=== PATIENT | female | born 1985 | race Caucasian/White ===

== ENCOUNTER 2020-07-28 11:18 | Outpatient (REF) | payer OTHER, SELFPAY | END 2020-07-28 11:19 | disposition home or self-care (01) | LOC: HO.HVNA 11:18 | PROVIDERS: PCP Family Medicine; Visit Provider Internal Medicine | DX: Z20.828 Contact with and (suspected) exposure to other viral communicable diseases (principal) | CPT/HCPCS: 87635 ==

== ENCOUNTER → 2021-11-26 14:49 | Outpatient (BNVA) | payer OTHER, SELFPAY | PROVIDERS: PCP Internal Medicine; Referring Provider Internal Medicine; Visit Provider Internal Medicine Cardiovascular Disease | DX: I49.3 Ventricular premature depolarization (principal); I47.1 Supraventricular tachycardia | CPT/HCPCS: 93005 ==

== ENCOUNTER 2024-03-22 11:46 | Outpatient (AMB) | payer OTHER, SELFPAY ==
--- NOTE | 2024-03-22 12:23 | AM.OFFWIN_ITS ---
Intake Vital Signs 03/22/24 12:27 Height 5 ft 5 in Weight 149 lb BMI 24.8 BP 132/84 Blood Pressure Location Lt brachial Position Sitting Pulse 68 Pulse Source Pulse Oximeter Temp 98.2 F Temp Source Oral Pulse Oximetry (%) 98 Oxygen Delivery Method Room Air Intake Visit Reasons: EP lump behind RT knee/redness Intake Note: pt here today c/o lump behind rt knee, redness/swelling. Started Friday 6 PM Patient Tobacco Use Status: Never used Tobacco Allergies bupropion [From WELLBUTRIN] Allergy (Unknown, Unverified 03/22/24 12:31) RASH Do you need a note to return to daycare/school/sports/work: No HPI HPI Comments History of Present Illness Details Patient is a 39-year-old female complaining of a lump behind her right knee with redness for 3 days. She states that it is not painful but it is getting larger and she feels like it is getting worse. She does not have a personal history of DVT or PE but she states her dad does have a history of blood clots in her mother is positive for factor 5 Leiden. She denies any discoloration to her right upper thigh. [facility] Medical History PVC (premature ventricular contraction) SVT (supraventricular tachycardia) Social History Patient Tobacco Use Status: Never used Tobacco Review of Systems Const All systems reviewed & are unremarkable except as noted in HPI and below Physical Exam Vital Signs: Last Vital Signs Temp 98.2 F 03/22/24 12:27 Pulse 68 03/22/24 12:27 BP 132/84 03/22/24 12:27 Pulse Ox 98 03/22/24 12:27 Oxygen Delivery Method Room Air 03/22/24 12:27 BMI result Body Mass Index 24.8 Const General: cooperative, healthy appearing, comfortable, no acute distress and well developed Orientation/consciousness: patient oriented x3 Limitations: no limitations HEENT Head: Yes normal to inspection Eyes General: appearance normal, both eyes and all related structures Neck Neck: Yes normal visual inspection and Yes full ROM Resp Effort & Inspection: normal respiratory effort and able to speak in complete sentences Skin General skin exam: no rashes or lesions noted Neuro General: patient oriented x3 Extrem Right lower extremity: hip/thigh (No discoloration) and knee (Posterior 2cm round palpable lump, no erythema, ecchymosis or discoloration) Results Reviewed Results Reviewed: US/US venous duplex LE RT IMPRESSION: 1. No DVT demonstrated in the right lower extremity. 2. 4.9 cm Gamez's cyst in the right popliteal fossa. Assessment & Plan Assessment & Plan (1) Localized swelling, mass and lump, right lower limb: Code(s): R22.41 - Localized swelling, mass and lump, right lower limb Plan: With strong family history, concern for clot, ultrasound performed emergently, found to be Bakers Cyst. Advised RICE and follow up with PCP if no resolution in symptoms in the coming weeks. (2) Localized swelling, mass and lump, right lower limb: Code(s): R22.41 - Localized swelling, mass and lump, right lower limb Plan: See above Plan See above Orders: Orders US venous duplex LE RT Today R22.41 - Localized swelling, mass and lump, right lower limb Coding Level of Care Code New Pt Level 4 (17533) Diagnoses Localized swelling, mass and lump, right lower limb R22.41
[2024-03-22 12:27] VITALS: BP 132/84; PULSE 68; TEMP 36.8; O2SAT 98; BMI 24.8
== END 2024-03-22 14:03 | disposition home or self-care (01) ==
PROVIDERS: PCP Registered Nurse; Visit Provider Physician Assistant
DX: R22.41 Localized swelling, mass and lump, right lower limb (principal)
CPT/HCPCS: 99203

== ENCOUNTER 2024-03-22 13:26 | Outpatient (REF) | payer OTHER, SELFPAY ==
--- NOTE | ~2024-03-22 | US_ITS ---
EXAMINATION: US VENOUS ULTRASOUND WITH DOPPLER LOWER EXTREMITY, RIGHT CLINICAL INFORMATION: Localized swelling, mass and lump, right lower limb COMPARISON: None available. TECHNIQUE: Ultrasound of the deep veins is performed from the hip to the calf with compression sonography and color and pulse Doppler assessment. Spectral analysis with color-flow imaging is performed. FINDINGS: There is normal venous compression and respiratory variation and augmented flow variation. Profunda femoral vein, popliteal vein, and the posterior tibial and peroneal veins show no evidence of deep venous thrombosis. The contralateral common femoral vein demonstrates normal vascular flow and respiratory variation. 4.9 x 1.4 x 3.7 cm Gamez's cyst seen in the right popliteal fossa. US/US venous duplex LE RT IMPRESSION: 1. No DVT demonstrated in the right lower extremity. 2. 4.9 cm Gamez's cyst in the right popliteal fossa.
== END 2024-03-22 13:27 | disposition home or self-care (01) ==
LOC: HO.HMGCX 13:26
PROVIDERS: PCP Registered Nurse; Visit Provider Physician Assistant
DX: R22.41 Localized swelling, mass and lump, right lower limb (principal); M79.604 Pain in right leg
CPT/HCPCS: 93971

== ENCOUNTER 2024-12-10 11:04 | Outpatient (AMB) | payer OTHER, SELFPAY ==
--- NOTE | 2024-12-10 11:06 | MHC.PC.OV ---
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: No Allergies bupropion [From WELLBUTRIN] Allergy (Unknown, Unverified 12/10/24 11:19) RASH Medication List - Last Reconciled 12/10/24 by Janelle Schaeffer, WARP DYEING TENDER-BC biotin mcg PO cetirizine (Wal-Zyr (cetirizine)) 10 mg PO DAILY PRN hydroxyzine pamoate mg PO PRN methylphenidate HCl ER 30 mg PO QAM sertraline 175 mg PO DAILY Tobacco use date assessed: 12/10/24 Dental Screening Dental Screen Date: 12/10/24 Did you have a dental visit in the last 12 months?: Yes Did you have a dental problem in the last 6 months where you did not have access to dental care?: No Was dental information given to patient?: Patient has dentist HPI HPI Comments History of Present Illness Details 39 y/o F with PVC, SVT, bakers cyst R, hyperthyroidism, IBS, ADD, MDD, GAGE, seasonal allergies Social; 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 , 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, 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 Family hx: mom with thyroid dz s/p thyroidectomy Surgery: lumpectomy L breast benign 2016, 3 surgery R knee Health Maintenance Tdap 2021 Flu UTD Mammo 07/2024 @ [facility] rec'd WNL Pap 07/2024 [facility] report requested Specialists Cards last visit 2021 recommend visit q2 years; now active w/ [facility] Cards Dr Mena every year BUSINESS DEVELOPMENT ASSOCIATE Optho 2023 last exam - needs reading glasses 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 - Chronic headaches have persisted for over three months, with attempts at various remedies providing little relief, NSAID + nonpharm interventions. Denies red flags assoc. - SVT episodes appear linked to low potassium, managed with dietary changes and an annual cardiology review. Last episode 09/2024. ED note reviewed. Last Consult note reviewed. PRN metoprolol. - She has a longstanding ADHD diagnosis, previously managed effectively with Ritalin 10mg BID, with current challenges in medication adjustment. Currently on methylphendiate ER 30mg. Active w/ counselor, wonders about PCP taking over Rx. - Anxiety is managed with sertraline; + SAD, was on Wellbutrin but ? if this caused a rash; she does not think this was a drug rash, rather stress related, She is undergoing allergy testing for this. i - The thyroid condition was hyperthyroidism, considering family history, with forest examiner's past guidance, current lab trends are monitored. TSh 09/2024 > 3 Review of Systems - Neurological: Denies stroke-like symptoms - Respiratory: Denies sleep apnea concerns - Allergic/Immunologic: Reports seasonal allergies - Psychological: Reports anxiety, denies changes in stress levels Physical Exam General: Well developed, well nourished, in no acute distress. Appears stated age. Head: Normocephalic, atraumatic. Noted presence of knots at the base of the skull. Eyes: Pupils are equal, round and reactive to light and accommodation. Conjunctivae are clear. Vision grossly normal. Recent eye exam indicated no need for glasses, only reading glasses with +0.3 magnification. Ears: TMs clear AU, EACS WNL. No concerns with hearing. Nose: Patent, without discharge. Neck: Supple, no adenopathy or thyromegaly. Noted presence of thyroid nodules; ultrasound recommended. Breast: Edu on SBE. History of lumpectomy in left breast, benign. Lungs: Clear to auscultation bilaterally. No rales, rhonchi or wheeze noted. Good air flow in all carlos. Heart: Regular rate and rhythm. No murmurs, click, rubs or gallops are noted. History of PVCs and SVT. Abdomen: Bowel sounds present in all quadrants. The abdomen is soft, nontender, with no masses or organomegaly noted. No hernias are noted. : Deferred. Reviewed EDMUND & recommendations for routine BUSINESS DEVELOPMENT ASSOCIATE. Pulses: Peripheral pulses are equal and palpable bilaterally. Extremities: No clubbing, cyanosis nor edema is noted. Neurologic: Gait and station normal. Cranial Nerves 2-12 intact. Motor strength grossly symmetrical and intact. No sensory loss. Balance normal. Skin: No rashes, ulcers, or lesions noted. Turgor is good. Skin color is good. Hair and nails are without abnormalities. Psych: Normal eye contact, affect and mood appropriate, and normal interactions. Patient is alert and appropriate to context. Currently seeing a therapist and psychiatrist for anxiety and ADD management. Discussion Notes During the visit, I discussed with the patient her chronic headaches, noted to be potentially musculoskeletal-based originating from neck tension. A neurology referral for headache evaluation was agreed upon. Regarding SVT, I acknowledged the patient's history with potassium-level management and suggested maintaining current lifestyle adjustments, while planning further care transition to a new cardiology practice. For ADHD management, we discussed collaboration on medication management following the sharing of the current psychiatrist's notes. Thyroid nodules were identified on examination; further thyroid ultrasound and antibody testing were recommended to monitor for potential thyroid disorder progression. Additional labs to assess overall health parameters were ordered. Assessment and Plan 1. Chronic Headaches: Referral to neurology for suspected tension headaches related to neck issues. Consider magnesium & b2 supplementation. 2. Supraventricular Tachycardia (SVT): Potassium maintenance via diet effectively preventing episodes. Follow up with new cardiology care arrangement. 3. ADHD: Medication management to be aligned following psychiatrical notes. Pursue satisfactory dose and type. 4. Thyroid Nodules: Recommend thyroid ultrasound to assess nodules given family history, hyperthyroid episode. 5. Generalized Anxiety Disorder: Manage with sertraline, consider seasonal affective disorder testing. Patient Instructions - Please maintain potassium intake through diet and hydration during exercise. - Consider magnesium and B vitamins for headache management; discuss with neurologist. - Obtain psychiatrist notes for efficient ADHD medication regulation. - Expect a call to schedule a thyroid ultrasound. - Utilize the patient portal for convenient communication and accessing lab results. - RTO to review labs, US results and work on optimizing psych meds. Consent Consent was obtained from the patient verbally for the thyroid ultrasound and antibody testing after detailing the benefits of further evaluation due to palpable nodules and family history. She understands the procedure's non-invasiveness and potential implications of findings. All questions were addressed, and she expressed understanding and agreement. Patient was informed and verbally consented to the use of an ambient scribe for clinic note documentation during this visit. An additional 30 minutes was spent addressing the problem(s) noted at todays visit. This includes time spent before the visit reviewing the chart, time spent during the visit, and time spent after the visit on documentation reviewing laboratory results, diagnostic imaging, medications, performing a medically necessary evaluation, counseling on diagnoses, care coordination, ordering appropriate tests, ordering appropriate medications, review of tests performed by other providers, reporting test results with the patient, communication with other healthcare providers. [facility] Medical History (Updated 12/10/24 @ 15:02 by Janelle Schaeffer [facility]) Anxiety and depression Eczema Incontinence PVC (premature ventricular contraction) Sinusitis SVT (supraventricular tachycardia) Surgical History (Updated 12/10/24 @ 11:22 by Angle Bacon) H/O right knee surgery History of lumpectomy Family History (Updated 12/10/24 @ 11:26 by Angle Bacon) Father HTN (hypertension) High cholesterol Maternal Grandmother Cardiovascular disease Clotting disorder Mother Thyroid disorder Mental health disorder Paternal Grandmother Colon cancer Maternal Grandfather Lymphoma Paternal Grandfather Pancreatic cancer Social History (Updated 12/10/24 @ 11:15 by Angle Bacon) Household Members: Spouse and Children Both parents involved: No Caregiver staying overnight: No Housing: House Are you a primary human services care specialist to a significant other at home: Yes Do you presently have visiting nurse or other home services: No 75 years or older and lives alone: No Alcohol intake: current Alcohol intake frequency: a few times a month Patient Tobacco Use Status: Never used Tobacco e-Cigarette/Vaping Use: Never Used Second Hand Smoke Exposure: No service: No Current occupational status: employed 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 1. Little interest or pleasure in doing things: not at all 2. Feeling down, depressed, or hopeless: not at all 3. Trouble falling or staying asleep, or sleeping too much: several days 4. Feeling tired or having little energy: more than half the days 5. Poor appetite or overeating: not at all 6. Feeling bad about yourself - or that you are a failure or have let yourself or your family down: not at all 7. Trouble concentrating on things, such as reading the newspaper or watching television: more than half the days 8. Moving or speaking so slowly that other people could have noticed. Or the opposite - being so fidgety or restless that you have been moving around a lot more than usual: several days 9. Thoughts that you would be better off or of hurting yourself in some way: not at all Total score: 6 Depression Screening Interpretation: Positive Depression Screening Follow-up: Existing condition Depression Screening Done: Yes 01105 - PHQ-9 Billing: Yes Source: Developed by Drs. Sridhar Gabriel, Ebony Cruz, Ceferino Lacey and colleagues, with an educational addi from [employer]. Thrive Questionnaire Date Thrive assessed: 12/10/24 I am a: Patient What is your living situation today?: I have a steady place to live Within the past 12 months, did the food you bought not last and you didn't have the money to get more?: Never true Within the past 12 months, did you worry whether your food would run out before you got money to buy more?: Never true Do you have trouble paying for medicines?: No Do you have trouble getting transportation to medical appointments?: No Do you have trouble paying your heating and electricity bill?: No Do you have trouble taking care of your child, family member or friend?: No Do you have trouble with day-to-day activities such as bathing, preparing meals, shopping, managing finances, etc.?: No Are you currently unemployed and looking for a job?: No Are you interested in more education?: No Please select the resources that you would like help with: None Currently or been in a relationship where the following occur: No concerns reported THRIVE Score: 0 AUDIT C Alcohol Use Questionnaire (AUDIT-C) 1. How often do you have a drink containing alcohol?: 2-4 times a month 2. How many drinks containing alcohol do you have on a typical day when you are drinking?: 1 or 2 3. How often do you have six or more drinks on one occasion?: Less than monthly Total Score: 3 Score Reviewed/Action Taken: Yes GAGE-7 AMB Questionnaire GAGE-7 Date GAGE - 7 assessed: 12/10/24 Feeling nervous, anxious, or on edge: 1 = Several days Not being able to stop or control worryin = Not at all Worrying too much about different things: 0 = Not at all Trouble relaxin = Not at all Being so restless that it is hard to sit still: 2 = More than half the days Becoming easily annoyed or irritable: 0 = Not at all Feeling afraid as if something awful might happen: 0 = Not at all Total GAGE-7 score (0-4 normal; 5-9 mild; 10-14 moderate; 15-21 severe): 3 Source: Developed by Drs. Sridhar Gabriel, Ebony Cruz, Ceferino Lacey and colleagues, with an educational addi from [employer]. GAGE-7 Assessment Billing GAGE-7 Assessment Tool: GAGE-7 Assessment 77472 Physical exam (Primary Care) Vital Signs: Last Vital Signs Temp 97.1 F 12/10/24 11:15 Pulse 68 12/10/24 11:15 Resp 12 12/10/24 11:15 BP 112/68 12/10/24 11:15 Pulse Ox 98 12/10/24 11:15 Oxygen Delivery Method Room Air 12/10/24 11:15 BMI result Body Mass Index 25.4 Tobacco/Smoking Status: Tobacco use Status Tobacco use date assessed 12/10/24 12/10/24 11:17 Patient Tobacco Use Status Never used Tobacco 12/10/24 11:15 e-Cigarette/Vaping Use Never Used 12/10/24 11:17 PHQ-9: PHQ-9 Score PHQ-9: Total score 6 12/10/24 13:15 Depression Screening Interpretation: Positive Depression Screening Follow-up: Existing condition Thrive Assessment: Date of Thrive Assessment Date Thrive assessed 12/10/24 12/10/24 11:07 Currently or been in a relationship where the following occur: No concerns reported Coding Level of Care Code Est Pt Level 4 (75222) New Pt Prev Care 40-64y(27813) Diagnoses Encounter for general adult medical examination with abnormal findings Z00.01 Chronic tension-type headache, not intractable G44.229 Headache type: tension-type Intractability: not intractable Attention deficit hyperactivity disorder (ADHD), predominantly inattentive type F90.0 Attention deficit-hyperactivity disorder type: predominantly inattentive GAGE (generalized anxiety disorder) F41.1 Screening for skin cancer Z12.83 Laboratory exam ordered as part of routine general medical examination Z00.00 thyroiditis O90.5 Synovial cyst of popliteal space [Gamez], right knee M71.21 SVT (supraventricular tachycardia) I47.1 PVC (premature ventricular contraction) I49.3 Mild episode of recurrent major depressive disorder F33.0 Major depression episode severity: mild Additional Codes GAGE-7 Assessment Billing - GAGE-7 Assessment Tool: GAGE-7 Assessment 15829 ([id number]) PHQ-9 - 60223 - PHQ-9 Billing: Yes ([id number]) Assessment & Plan Assessment & Plan (1) Encounter for general adult medical examination with abnormal findings: Code(s): Z00.01 - Encounter for general adult medical examination with abnormal findings (2) Chronic headache: Code(s): R51.9 - Headache, unspecified; G89.29 - Other chronic pain Category: Medical Qualifiers: Headache type: tension-type Intractability: not intractable Qualified Code(s): G44.229 - Chronic tension-type headache, not intractable (3) ADHD: Code(s): F90.9 - Attention-deficit hyperactivity disorder, unspecified type Category: Medical Qualifiers: Attention deficit-hyperactivity disorder type: predominantly inattentive Qualified Code(s): F90.0 - Attention-deficit hyperactivity disorder, predominantly inattentive type (4) GAGE (generalized anxiety disorder): Code(s): F41.1 - Generalized anxiety disorder Category: Medical (5) Screening for skin cancer: Code(s): Z12.83 - Encounter for screening for malignant neoplasm of skin Category: Medical (6) Laboratory exam ordered as part of routine general medical examination: Code(s): Z00.00 - Encounter for general adult medical examination without abnormal findings Category: Medical (7) thyroiditis: Code(s): O90.5 - thyroiditis Category: Medical (8) Synovial cyst of popliteal space [Gamez], right knee: Code(s): M71.21 - Synovial cyst of popliteal space [Gamez], right knee Category: Medical (9) SVT (supraventricular tachycardia): Code(s): I47.1 - Supraventricular tachycardia Category: Medical (10) PVC (premature ventricular contraction): Code(s): I49.3 - Ventricular premature depolarization Category: Medical (11) MDD (major depressive disorder), recurrent episode: Code(s): F33.9 - Major depressive disorder, recurrent, unspecified Category: Medical Qualifiers: Major depression episode severity: mild Qualified Code(s): F33.0 - Major depressive disorder, recurrent, mild Plan . Orders: Orders Comprehensive Met. Panel Today SHELLEY Howell Z00.00 - Encounter for general adult medical examination without abnormal findings Hemoglobin A1c Today ALFREDA Howell Z00.00 - Encounter for general adult medical examination without abnormal findings Lipid Panel Today OTF HowellPElida Z00.00 - Encounter for general adult medical examination without abnormal findings Microalbumin, Random (w Creat) [facility] - Encounter for general adult medical examination without abnormal findings TSH reflex Free T4 Today SHELLEY Howell Z00.00 - Encounter for general adult medical examination without abnormal findings Thyroid Peroxidase Antibodies Today Janelle Schaeffer [facility] O90.5 - thyroiditis Vitamin B12 and Folate [facility] - Encounter for general adult medical examination without abnormal findings Vitamin D 25-OH Total Today Janelle Schaeffer [facility] Z00.00 - Encounter for general adult medical examination without abnormal findings US thyroid [facility] O90.5 - thyroiditis Referrals [facility]rology [facility] G89.29 - Other chronic pain, R51.9 - Headache, unspecified Dermatology Referral Janelle Schaeffer [facility] Z12.83 - Encounter for screening for malignant neoplasm of skin Medications: Changed From sertraline 50 mg PO DAILY 90 days 90 tabs 4RF To sertraline 175 mg PO DAILY Navid Martinez MD Patient Instructions: b2 400mg magnesium 400mg QD Walk-In Care (Urgent Care): We Make it Easy Walk-in for urgent medical issues such as: ? Seasonal Allergies ? Insect Bites ? Cough ? Diarrhea ? Acute Asthma Attacks ? Back, Knee or Joint Pain ? Ear Infection ? Fever without a Rash ? Headaches ? Nausea ? [place] [facility], Rash or Skin Irritation ? Sore Throat ? Sports Physicals ? Vomiting Most insurances are accepted. Patients do not need to be part of the [facility] to seek care at the walk-in clinic. Locations [address] [facility] , [place] [address] ? [phone] [facility] Walk-In Care in [place] provides services to ages 18 and over. Open Friday-Friday: 8 a.m. to 5 p.m. and Friday: 9 a.m. to 3 p.m.* *Hours may vary due to staffing availability. To confirm Walk-In Care hours in [place], please call [phone]. [address] [place] [address] ? [phone] [facility] Walk-In Care in [place] provides services to ages 12 and over. Open Friday-Friday: 8 a.m. to 5 p.m. Hours may vary due to staffing availability. To confirm Walk-In Care hours in [place], please call [phone]. LABORATORY SERVICES: [facility] Lab ? Primary Location [address] [place] [address] Friday through Friday 6:00 AM ? 5:00 PM Friday 7:00 AM ? 11:00 AM* [phone] The [facility] Lab is centrally located near the front entrance of the [facility] for easy outpatient access. Convenient parking is provided for outpatients. *Hours may vary due to staffing availability. To confirm Laboratory hours for any location, please call [phone]. Offsite Location For your convenience, we offer offsite laboratory draw stations at the following locations: [address] [place] [address] ? [address], [address] Friday through Friday 7:30 AM ? 1:00 PM* [phone] *Hours may vary due to staffing availability. To confirm Laboratory hours for any location, please call [phone]. [place] ? [address] Friday through Friday 6:00 AM ? 3:30 PM* Friday 6:30 AM ? 3 PM* [phone] *Hours may vary due to staffing availability. To confirm Laboratory hours for any location, please call [phone]. [address] [facility] Friday through Friday 7:30 AM ? 4:00 PM* [phone] *Hours may vary due to staffing availability. To confirm Laboratory hours for any location, please call [phone]. [address] [facility] Friday through 9:00 AM ? 4:00 PM* *Hours may vary due to staffing availability. To confirm Laboratory hours for any location, please call [phone]. Appointments are not necessary. Walk-ins are welcome. Like all the departments throughout the [facility], our Lab undergoes frequent reviews to ensure the quality and accuracy of test results, and our staff takes special pride in its status as a nationally accredited facility. Patient Portal: ONE PATIENT. ONE RECORD. BETTER CARE. [facility] has a fully integrated, cutting-edge mobile electronic health information system that has revolutionized the way we care for our patients and manage our organization. This system improves communication and coordination enabling us to provide safe, higher-quality care, and an overall positive experience for staff and patients. Our first priority, as always, is to deliver the highest quality care possible. The system is running in the background supporting that priority. This portal is for all [facility] services and practices. If you are experiencing any technical difficulties with enrolling or logging into the Patient Portal please complete the [facility] Patient Portal Technical Support Form. [facility] now offers a new secure on-line interactive tool for patients to review their health information ? ?Patient Portal. This interactive web portal will enable patients and their families to take an active role in their care by providing easy, secure access to their health information via the internet. The Patient Portal provides patients with instant access to their health information, including laboratory results, medications, allergies, demographic information, visit history, and more. In addition to managing their own care, parents and health care proxies with authorized consent will appreciate the ability to access the records of those individuals for whom they provide care. Please note: if you wish to gain access (Proxy) to another patient?s portal, you will be required to come to the Medical Records Department in person at [facility]. Both the patient giving proxy access and the proxy will need to provide photo identification and complete the appropriate authorization. The Patient Portal also allows track their appointments online. The [facility] Patient Portal also saves patients time by allowing them to submit updates to their demographic and contact information prior to their visits. Portal email notifications will also alert patients to any new activity on their portal, such as test results and new appointments. In order to initially enroll in the [facility] Patient Portal, you will need to enter some required information including the following: your [facility] Medical Record number your personal home email address name date of Please note: In order to enroll in the [facility] Patient Portal, we need to have your email address on file in your electronic medical record. ?The email address needs to be specific for one person (yourself) in order for your Portal enrollment to be successful. ?You can update your email address in person with our Registration staff when you are registering for a hospital visit. ?Otherwise, you will need to come to the Health Information Management (Medical Records) Department at [facility]. ?We are open from Friday ? Friday from 7:30 a.m. ? 4:30 p.m. ?You will be required to present a photo id. Once you have successfully enrolled in the Patient Portal, you will receive a one-time user id and password for the Portal, sent to your email address. ?This will allow you to log into the Patient Portal within 99 hrs and reset your own logon id and password, and define personal security questions. ?Once your permanent login and password have been set, you can log into the [facility] Patient Portal at any time via the blue button above or from the Portal Logon button on any page of the [facility] website. [facility] and [facility] encourage all of our patients to enroll in Patient Portal as it presents a valuable opportunity for patients and their families to actively participate in their care and stay healthy Welcome to [facility]. ?We look forward to working with you. Health screenings for women You should visit your health care provider from time to time, even if you are healthy. The purpose of these visits is to: Screen for medical issues Assess your risk for future medical problems Encourage a healthy lifestyle Update vaccinations and other preventive care services Help you get to know your provider in case of an illness Information Even if you feel fine, you should still see your provider for regular checkups. These visits can help you avoid problems in the future. For example, the only way to find out if you have high blood pressure is to have it checked regularly. High blood sugar and high cholesterol levels also may not have any symptoms in the early stages. A simple blood test can check for these conditions. There are specific times when you should see your provider or receive specific health screenings. The US Preventive Services Task Force publishes a list of recommended screenings. Below are screening guidelines for women ages 18 to 39. BLOOD PRESSURE SCREENING Your blood pressure should be checked at least once every 3 to 5 years if: Your blood pressure is in the normal range (top number less than 120 mm Hg and bottom number less than 80 mm Hg) You don't have risk factors for high blood pressure Ask your provider if you need your blood pressure checked more often if: The top number is 120 to 129 mm Hg or the bottom number is 70 to 79 mm Hg You have diabetes, heart disease, kidney problems, are overweight, or have certain other health conditions You have a first-degree relative with high blood pressure You are Black You had high blood pressure during a If the top number is 130 mm Hg or greater or the bottom number is 80 mm Hg or greater, this is considered stage 1 hypertension. Schedule an appointment with your provider to learn how you can reduce your blood pressure. Watch for blood pressure screenings in your area. Ask your provider if you can stop in to have your blood pressure checked. BREAST CANCER SCREENING Experts do not agree about the benefits of breast self-exams in finding breast cancer or saving lives. Talk to your provider about what is best for you. A screening mammogram is not recommended for most women under age 40. Your provider may discuss and recommend mammograms, MRI scans, or ultrasounds if you have an increased risk for breast cancer, such as: A mother or sister who had breast cancer at a young age (most often starting screening earlier than the age the close relative was diagnosed) You carry a high-risk genetic marker CERVICAL CANCER SCREENING Cervical cancer screening should start at age 21 years unless your provider advises otherwise. After the first test: Women ages 21 through 29 should have a Pap test every 3 years. Exoprts do not agree on whether HPV testing is recommended for this age group. Women ages 30 through 65 should be screened with either a Pap test every 3 years or the HPV test every 5 years or both tests every 5 years (called cotesting ). Women who have been treated for precancer (cervical dysplasia) should continue to have Pap tests for 20 years after treatment or until age 65, whichever is longer. If you have had your uterus and cervix removed (total hysterectomy), and you have not been diagnosed with cervical cancer or precancer (high grade cervical neoplasia), you do not need cervical cancer screening. CHOLESTEROL SCREENING Cholesterol screening should begin at: Age 45 for women with no known risk factors for coronary heart disease Age 20 for women with known risk factors for coronary heart disease Repeat cholesterol screening should take place: Every 5 years for women with normal cholesterol levels More often if changes occur in lifestyle (including weight gain and diet) More often if you have diabetes, heart disease, kidney problems, or certain other conditions DIABETES SCREENING You should be screened for diabetes starting at age 35 and then repeated every 3 years if you have no risk factors for diabetes. Screening may need to start earlier and be repeated more often if you have other risk factors for diabetes, such as: You have a first degree relative with diabetes. You are overweight or have obesity. You have high blood pressure, prediabetes, or a history of heart disease. Screening for diabetes should be done if you are planning to become and you are overweight and have other risk factors such as high blood pressure. DENTAL EXAM Go to the dentist once or twice every year for an exam and cleaning. Your dentist will evaluate if you need more frequent visits. EYE EXAM Have an eye exam every 5 to 10 years before age 40. If you have vision problems, have an eye exam every 2 years or more often if recommended by your provider. You should have an eye exam that includes an examination of your retina (back of your eye) at least every year if you have diabetes. IMMUNIZATIONS Commonly needed vaccines include: Flu shot: get one every year. COVID-19 vaccine: ask your provider what is best for you. Tetanus-diphtheria and acellular pertussis (Tdap) vaccine: have one at or after age 19 as one of your tetanus-diphtheria vaccines if you did not receive it as an adolescent. Tetanus-diphtheria: have a booster (or Tdap) every 10 years. Varicella vaccine: receive 2 doses if you never had chickenpox or the varicella vaccine. Hepatitis B vaccine: receive 2, 3, or 4 doses, depending on your exact circumstances. Measles, mumps, and rubella (MMR) vaccine: receive 1 to 2 doses if you are not already immune to MMR. Your provider can tell you if you are immune. Ask your provider about the human papillomavirus (HPV) vaccine if: You have not received the HPV vaccine in the past You have not completed the full vaccine series (you should catch up on this shot) Ask your provider if you should receive other immunizations if you have certain health problems that increase your risk for some diseases such as pneumonia. INFECTIOUS DISEASE SCREENING Women who are sexually active should be screened for chlamydia and gonorrhea up until age 25. Women 25 years and older should be screened for chlamydia and gonorrhea if at high risk. Screening for hepatitis C: All adults ages 18 to 79 should get a one-time test for hepatitis C. people should be screened at every . Screening for human immunodeficiency virus (HIV): All people ages 15 to 65 should get a one-time test for HIV. Depending on your lifestyle and medical history, you may also need to be screened for infections such as syphilis and HIV, as well as other infections. PHYSICAL EXAM All adults should visit their provider from time to time, even if they are healthy. The purpose of these visits is to: Screen for disease Assess your risk of future medical problems Encourage a healthy lifestyle Update your vaccinations and other preventive care services Maintain a relationship with a provider in case of an illness Your height, weight, and BMI should be checked at every exam. During your exam, your provider may ask you about: Depression and anxiety Diet and exercise Alcohol and tobacco use Safety issues, such as using seat belts, smoke detectors, and intimate partner violence Your medicines and risk for interactions SKIN SELF-EXAM Your provider may check your skin for signs of skin cancer, especially if you're at high risk, such as if you: Have had skin cancer before Have close relatives with skin cancer Have a weakened immune system OTHER SCREENING Talk with your provider about colon cancer screening if you have a strong family history of colon cancer or polyps, or if you have had inflammatory bowel disease or polyps yourself. Routine bone density screening of women under 40 is not recommended.
[2024-12-10 11:15] VITALS: BP 112/68; PULSE 68; RESP 12; TEMP 36.2; O2SAT 98; BMI 25.4
--- OUTSIDE RECORDS SUMMARY | 2024-12-10 12:54 | XMS_ITS | Clinical Summary ---
Author Organization [facility] Address [address] [place] [address] Care Team Providers Care Speech Language Pathologist Assistant Name Role Phone Rosalio Tesfaye MD Primary Care Provider [phone] Lizbeth Cancino MD Unavailable [phone] Agnes Engle MD Unavailable Unavailable Source Comments Please note that some or all of the patient's information could have additional privacy protections. State laws allow health care providers to render certain types of treatment to minors without parental consent. Please do not assume that this information can be shared solely by obtaining just the consent of the patient's parent/guardian. Please determine if all or part of the patient's care was rendered without parent/guardian involvement. And, if so, obtain the minor's consent prior to disclosure.[facility] Allergies Active Allergy Reactions Criticality Noted Date Comments Amoxicillin Hives 10/15/2021 Cherries Swelling 10/15/2021 Per Maryellen, also allergic to other 'pit fruits' Seasonal 10/15/2021 Bupropion Hcl Rash Low 10/15/2021 Medications 25/iron fum/folic/dha (-1 ORAL) Take by mouth Active cetirizine (ZYRTEC) 10 MG tablet Take 10 mg by mouth daily Active sertraline (ZOLOFT) 25 MG tablet Take 25 mg by mouth daily Active Active Problems Problem Noted Date Diagnosed Date Normal cardiac exam 10/15/2021 Assessment & Plan (10/15/2021 3:21 PM EST): Normal cardiac structure and function Today's Plan: No change in or delivery plan. Delivery at [facility] as previously planned. No need for further cardiology evaluation unless new concerns arise. Family History Medical History Relation Name Comments Genetic disorder Mother Arrhythmia Neg Hx Cardiomyopathy Neg Hx Congenital heart disease Neg Hx SIDS Neg Hx Sudden Neg Hx Relation Name Status Comments Mother Other Carrier for lid en factor 5 Social History Tobacco Use Types Packs/Day Years Used Date Smoking Tobacco: Never Other Needs Answer Date Recorded Anything else about your child you'd like help w ith? Not on file 06/27/2023 Share good news about positive changes: Not on f ile 06/27/2023 Comments No Sex and Gender Information Value Date Recorded Sex Assigned at Female 10/15/2021 12:28 PM EST Legal Sex Female 3:02 PM EST Gender Identity Female 10/15/2021 12:28 PM EST Sexual Orientation Straight 10/15/2021 12 :28 PM EST Plan of Treatment Health Maintenance Due Date Last Done Comments DTaP/TDAP/TD VACCINES (1 - Tdap) 1991 ADOLESCENT HIV SCREENING 1997 COVID-19 Vaccine ( season) 2024 01/30/2021, 01/02/2021 INFLUENZA (#1) 2024 NIRSEVIMAB VACCINES UNDER 8 MONTHS Aged Out No longer eligible b ased on patient's age to complete this topic Insurance [facility] PPO [facility] P[facility] Care Teams Speech Language Pathologist Assistant Relationship Specialty Start Date End Date Rosalio Tesfaye MD [address] [place] [id number] PCP - General Maternal and Medicine 10/15/21 Lizbeth Cancino MD [address] [place] [address] Obstetrics and Gynecology 10/09/21 Agnes Engle MD [address] [place] [id number] Consulting Physician Cardiology 10/15/21
--- OUTSIDE RECORDS SUMMARY | 2024-12-10 12:54 | XMS_ITS | Clinical Summary ---
Author Organization [facility] Address [address] [place] [address] Care Team Providers Care Fish Hatchery Supervisor Name Role Phone Unavailable Primary Care Provider Unavailabl e Source Comments PLEASE NOTE, if this patient is a minor, it may be UNLAWFUL to discuss sensitive information that is contained in these records (such as FAMILY PLANNING, MENTAL HEALTH or SUBSTANCE ABUSE) with the minor patient's parent or other person without the patient's specific authorization.[facility] Immunizations Name Administration Dates Next Due Moderna COVID-19 Vaccine, re d cap blue label, 12+ Primary Series 01/30/2021,01/02/2021 Social History Tobacco Use Types Packs/Day Years Used Date Smoking Tobacco: Never Assessed Social Connections Answer Date Recorded Social Connections and Isolation 0 01/02/2021 Financial Resource Strain Answer Date R ecorded Financial Resource Strain 0 2020 Stress Answer Date Recorded Stress 0 01/02/2021 Physical Activity Answer Date Recorded Physical Activity 0 01/02/2021 Food Insecurity Answer Date Recorded Food 0 01/02/2021 Transportation Needs Answer Date Record ed Transportation 0 01/02/2021 Housing Stability Answer Date Recorded Housing 0 01/02/2021 Safety and Environment Answer Date Sourav rded Safety 0 01/02/2021 Utilities Answer Date Recorded Utilities 0 01/02/2021 Employment Answer Date Recorded Employment 0 01/02/2021 Comments Unknown Sex and Gender Information Value Date Recorded Sex Assigned at Not on file Legal Sex Female 9:00 AM PDT Gender Identity Not on file Sexual Orientation Not on file Plan of Treatment Health Maintenance Due Date Last Done Comments Diabetes Screening 1984 HPV Screening 1984 Hepatitis C Screening 1984 Lipid Screening 1984 Pap + HPV 1984 Tobacco Screening 1984 HIV Screening 1999 Relationship Safety Screening/Counseling 1999 Annual Preventive Care Visit 2002 Hypertension Screening (#1) 2002 Imm-Hepatitis B (1 of 3 - 19 + 3-dose series) 2003 Cervical Cancer Screening 2005 Pap Smear 2005 Breast Cancer Screening (Mammogram) 2024 [id number] (2023- season) 2024 021, 01/02/2021 Imm-Influenza (#1) 2024 08/09/2020, 0 06/28/2019, 09/10/2018, Additional history exists Alcohol and Drug Screen 10/13/2024 Depression Annual Screen 10/13/2024 Imm-DTaP/Tdap/Td (4 - Td or Tdap) 06/28/2029 06/28/2019, 09/14/2012, 10/13/2001 Cervical Ablation/Cold-Knife Conization Discontinued Cervical Cryotherapy Discontinued Colposcopy Discontinued Endometrial Biopsy Discontinued Excision/Leep Discontinued HPV Genotyping Discontinued Vaginal Pap Discontinued Vulvoscopy Discontinued Insurance [facility] INS[facility] Member Subscriber Plan / Payer (Ef fective 2021-Present) Name:Maryellen Daniels Relation to Subscriber:Self Name:Maryellen Dainels Payer ID:[id number] Type:Pratibha Address: [address] [address]
--- OUTSIDE RECORDS SUMMARY | 2024-12-10 12:54 | XMS_ITS ---
Author Name [facility] Organization Unknown History of Medication Use Medication Directions Dispensed Refills Start Date End Date Stat us cetirizine (ZYRTEC) 10 MG tablet Take 10 mg by mouth daily active sertraline (ZOLOFT) 25 MG tablet Take 25 mg by mouth daily active Problems Problem Status Onset Date Problem Type Date of Resoluti on Source Normal cardiac exam active 2021-10-15 ProblemAct [facility]
--- OUTSIDE RECORDS SUMMARY | 2024-12-10 12:54 | XMS_ITS | Clinical Summary ---
Author Organization [facility] Address [address] [place] [address] Care Team Providers Care Technician Anatomic Pathology Name Role Phone Yulia Mix MD Primary Care Provider [phone] Allergies Active Allergy Reactions Criticality Noted Date Comments Amoxicillin Trihydrate 12/12/1979 Medications Sertraline HCl 100 MG Tab 1 TABLET DAILY Acti ve Metoprolol Tartrate 25 MG Tab 1 tablet daily Activ e Etonogestrel-E thinyl Estradiol (NUVARING) 0.12-0.015 MG/24HR RING 1 TABLET DAILY Ac tive Methylphenidat e HCl (RITALIN LA) 30 MG CAPSULE SR 24 HR 1 CAPSULE EVERY MORNING Active Sodium Chloride 0.9 % SolutionIndica tions:Nausea vomiting and diarrhea Administer intravenously at the rate of 1200 ml per hour 2000 mL 7 Active Immunizations Name Administration Dates Next Due DTP 01/22/1989 DTaP 09/15/1985,1984,1984 ,1984 HIB (PRP-T) 03/23/1986 Hep B (pedi) 08/20/1996,03/17/1996,02/13/1996 MMR 02/13/1996,06/23/1985 Meningococcal MPSV4 (Menomune) 03/24/2002 OPV 01/22/1989,09/15/1985,1984 ,1984 PPD/TST (Tuberculin Skin Test) 03/24/2002,1999 Td (adult), adsorbed 05/10/1998 Social History Tobacco Use Types Packs/Day Years Used Date Smoking Tobacco: Never Comments No Sex and Gender Information Value Date Recorded Sex Assigned at Not on file Legal Sex Female 3:39 AM EDT Gender Identity Not on file Sexual Orientation Not on file Last Filed Vital Signs Vital Sign Reading Time Taken Comments Blood Pressure 129/85 03/17/2017 5:03 PM EDT Pulse 75 03/17/2017 5:03 PM EDT Temperature 37.2 ??C (98.9 ??F) 03/17/2017 5:03 PM ED T Respiratory Rate 16 03/17/2017 2:36 PM EDT Oxygen Saturation - - Inhaled Oxygen Concentration - - Weight - - Height - - Body Mass Index - - Plan of Treatment Health Maintenance Due Date Last Done Comments Hepatitis C Screening 1984 DTaP/Tdap/Td (6 - Tdap) 05/11/1998 05/10/19 98, 01/22/1989, 09/15/1985, Additional history exists Pap Smear 10/21/2004 10/21/2001, 07/11/2000 Mammogram/Breast Imaging 2024 COVID-19 Vaccine ( season) 2024 Influenza (#1) 2024 Zoster (Shingrix) (1 of 2) 2034 Hib Completed 03/23/1986 Hep B Completed 08/20/1996, 02/1996, 02/13/1996 Meningococcal ACWY Aged Out 03/24/2002 No longer eligible based on patient's age to complete this topic HPV Vaccine Aged Out No longer eligi ble based on patient's age to complete this topic Hep A Aged Out No longer eligi ble based on patient's age to complete this topic Pneumococcal Aged Out No longer eligi ble based on patient's age to complete this topic Procedures * Due to [place] [employer] law, this organization might not be sharing negative HIV tests. Procedure Name Priority Date/Time Associated Diagnosis Comments PAP SMEAR Routine 10/21/2001 1:48 PM EST from Last 3 Months or Most Recently Relevant to Health Maintenance Results * Due to [place] [employer] law, this organization might not be sharing negative HIV tests. * PAP SMEAR (10/21/2001 1:48 PM EST) PAP SOURCE [facility] (CLIA# [id number]) Comment:None given PAP NUMBER OF SLIDES RECEIVED 1 [facility] (CLIA# [id number]) LMP [facility] (CLIA# [id number]) Comment:10/09/01 PAP CLINICAL HISTORY [facility] (CLIA# [id number]) Comment:Hormone therapy LQPAPENDO [facility] (CLIA# [id number]) Comment:Endocervical cells a re absent. PAP SPECIMEN ADEQUACY [facility] (CLIA# [id number]) Comment:Satisfactory specime n for Cytologic evaluation. INTERPRETATION/RE SULT - PAP [facility] (CLIA# [id number]) Comment: WITHIN NORMAL LIMITS (Please note comment under endocervical component) PAP PATHOLOGY GROUP [facility] (CLIA# [id number]) Comment: [address] [address] Screening performed at [facility], [address] [place] [address] 10/21/2001 1:48 PM EST 10/21/2001 1:48 PM EST Blessing Infante MD PATHOLOGY Final Result [facility] (CLIA# [id number]) [address] [place] [id number] from Last 3 Months or Most Recently Relevant to Health Maintenance Insurance [employer] [facility] [employer] DIRECT CARE (HMO) Care Teams Technician Anatomic Pathology Relationship Specialty Start Date End Date Yulia Mix MD PCP - General Family Medicine 03/17/17
== END 2024-12-10 11:53 | disposition home or self-care (01) ==
PROVIDERS: PCP Nurse Practitioner Family; Visit Provider Nurse Practitioner Family
DX: Z00.00 Encounter for general adult medical examination without abnormal findings (principal); G44.229 Chronic tension-type headache, not intractable; I47.10 Supraventricular tachycardia, unspecified; F33.0 Major depressive disorder, recurrent, mild; F90.0 Attention-deficit hyperactivity disorder, predominantly inattentive type; F41.1 Generalized anxiety disorder; Z12.83 Encounter for screening for malignant neoplasm of skin; O90.5 Postpartum thyroiditis; M71.21 Synovial cyst of popliteal space [Baker], right knee; I49.3 Ventricular premature depolarization

== ENCOUNTER → 2024-12-10 11:04 | Outpatient (BNVA) | payer OTHER, SELFPAY | PROVIDERS: PCP Nurse Practitioner Family; Visit Provider Nurse Practitioner Family | DX: Z00.01 Encounter for general adult medical examination with abnormal findings (principal); G44.229 Chronic tension-type headache, not intractable; F90.0 Attention-deficit hyperactivity disorder, predominantly inattentive type; F41.1 Generalized anxiety disorder; M71.21 Synovial cyst of popliteal space [Baker], right knee; I47.10 Supraventricular tachycardia, unspecified; I49.3 Ventricular premature depolarization; F33.0 Major depressive disorder, recurrent, mild; E04.1 Nontoxic single thyroid nodule; Z79.899 Other long term (current) drug therapy | CPT/HCPCS: 96127 ==

== ENCOUNTER 2024-12-13 14:38 | Outpatient (REF) | payer OTHER, SELFPAY ==
[2024-12-13 15:06] LABS: Estimated Average Glucose 94 mg/dL; Hemoglobin A1C 106.9707 umol/L; Hemoglobin A1c % 4.9 % (<6.0); Total Hemoglobin (HGBA1C) 3569.4978 umol/L
[2024-12-13 16:01] LABS: Folate 10.7 ng/mL (> or = 4.0); Vitamin B12 429 pg/mL (200-900)
[2024-12-13 16:03] LABS: Microalbum/Creatinine Ratio Ur 5.6 ug/mg cr (<30)
[2024-12-13 16:12] LABS: Alanine Aminotransferase 23 U/L (0-31); Albumin Level 4.3 g/dL (3.5-5.0); Alkaline Phosphatase 57 U/L (39-117); Anion Gap 12 (12-20); Aspartate Amino Transferase 29 U/L (5-31); Bilirubin Total 0.6 mg/dL (0.0-1.0); Blood Urea Nitrogen 10 mg/dL (9-16); Calcium 9.3 mg/dL (8.4-10.2); Carbon Dioxide 27 mmol/L (22-29); Chloride 104 mmol/L (96-108); Cholesterol 276 mg/dL (<200); Estimated Glomerular Filt Rate > 60; Glucose Random 90 mg/dL (60-115); HDL Cholesterol 78 mg/dL (>40); LDL Cholesterol Calculated 171 mg/dL (<100); Potassium 3.7 mmol/L (3.3-5.1); Sodium 139 mmol/L (135-145); Total Protein 7.6 g/dL (6.5-8.0); Triglycerides 135 mg/dL (<150)
[2024-12-13 16:27] LABS: Vitamin D 25-OH Total 46.5 ng/mL (>30)
--- OUTSIDE RECORDS SUMMARY | 2024-12-13 17:27 | XMS_ITS | Patient Health Record ---
Author Organization [facility] Address [address] [place] [id number] Care Team Providers Care Retail Specialist Name Role Phone ANUPAMA GRANADOS Primary Care Provider [phone] Araceli Bill Unavailable [phone] ALLERGIES Allergen (clinical drug ingredient) Drug/Non Drug Allergy documented on EMR Reaction Allergy Type Onset Date Status Wellbutrin Rash Drug Allergy Active Dust Mites Sneezing & Itchy eyes Allergy Active Mold Sneezing & Itchy eyes Allergy Active Pollen Pollen Sneezing & itchy eyes Allergy Active REASON FOR REFERRAL No Information MEDICATIONS Medication SIG (Take, Route, Frequency, Duration) Notes Start Date End Date Status hydrOXYzine HCl 25 MG 1 tablet as needed Orally Once a day Active ZyrTEC Allergy 10 MG 1 tablet Orally Onc e a day Active Sertraline HCl 100 MG 1 tablet Orally On ce a day Active Biotin 5000 Active Norethindrone (Contraceptive) .35mg Active SOCIAL HISTORY Tobacco Use: Social History Observation Description Date Details (start date - stop date) Never Smoker NA - NA Sex Assigned At : Social History Observation Description Sex Assigned At Unknown Tobacco Use/Smoking Question Answer Notes Tobacco use: nonsmoker Section Notes: Lives in [place], [place] with and 2 Children and a cat. Enjoys socializing with friends and orange theory. Lives in [place], [place] with and 2 Children and a cat. 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 Enjoys socializing with friends and orange theory. Lives in [place] with and 2 Children and a cat. Enjoys socializing with friends and orange theory. Lives in [place] with and 2 Children and a cat. 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 Enjoys socializing with friends and orange theory. PROBLEMS Problem Type ICD Code Onset Dates Problem Status W/U Status Risk SNOMED Code Notes Problem Mixed hyperlipidemia (E78.2) Active confirmed 174283360 Problem Seasonal allergies (J30.2) Active confirmed 863237439 Problem Anxiety (F41.9) Active confirmed 953195 02 Problem SVT (supraventricular tachycardia) (I47.10) Active confirmed [id number] Encounters Encounter Location Date Provider Diagnosis [address] [place] [id number] 04/13/2024 Araceli Bill PLAN OF TREATMENT Future Test Test Name Order Date APOLIPOPROTEIN A1 10/15/2023 APOLIPOPROTEIN B 10/15/2023 CBC (COMPLETE BLOOD COUNT) WITH DIFF 12/2023 COMPREHENSIVE METABOLIC PANEL 10/15/2023 T3 UPTAKE 10/15/2023 T3, FREE 10/15/2023 T3, REVERSE 10/15/2023 T3, TOTAL 10/15/2023 THYROID PEROXIDASE (ANTIMICROSOMAL) ANTI BODIES 10/15/2023 THYROID STIMULATING IMMUNOGLOBULIN 10/15 LIPID PANEL 10/15/2023 THYROID PANEL 10/15/2023 Insurance Providers Payer Name Payer Address Payer Phone Subscriber Number Group Number Insured Name Patient Relationship to Insured Coverage Start Date Coverage End Date [facility] [address] [place] [phone] [id number] GURPREET BUI Self - patient is the insured MEDICAL (GENERAL) HISTORY Medical History History ICD Code Allergies Anxiety Bladder/Kidney Problems Brest Lump Benign Fractures - Right Knee Hyperlipidemia Eczema SVT Chicken Pox as a child Surgical History Surgery Date(Month/Year) Left Breast Biopsy 2014 Echocardiogram - SVT 01/2023 Knee Surgery [place] Teeth Removal 2003
--- OUTSIDE RECORDS SUMMARY | 2024-12-13 17:28 | XMS_ITS | Clinical Summary ---
Author Organization [facility] Address [address] [place] [address] Care Team Providers Care College Director Name Role Phone Rosalio Tesfaye MD Primary Care Provider [phone] Lizbeth Cancino MD Unavailable [phone] Agnes Engle MD Unavailable Unavailable Source Comments [...] so, obtain the minor's consent prior to disclosure.[facility] Allergies Active Allergy Reactions Criticality Noted [...] change in or delivery plan. Delivery at [facility] as previously planned. No need for [...] patient's age to complete this topic Insurance [facility] PPO [facility] PPO Care Teams College Director Relationship Specialty Start Date End Date Rosalio Tesfaye MD [address] [place] [address] PCP - General Maternal and Medicine 10/15/21 Lizbeth Cancino MD [address] [place] [address] Obstetrics and Gynecology 10/09/21 Agnes Engle MD [address] [place] [address] Consulting Physician Cardiology 10/15/21
--- OUTSIDE RECORDS SUMMARY | 2024-12-13 17:28 | XMS_ITS | Patient Health Record ---
Author Organization [facility] Address [address] [place] [address] Care Team Providers Care Anodizing Line Operator Name Role Phone SULY MULLER Unavailable [phone] MILTONYODIT Rojas Unavailable [phone] ALLERGIES Allergen (clinical drug ingredient) Drug/Non Drug Allergy documented on EMR Reaction Allergy Type Onset Date Status amoxicillin Amoxicillin rash Drug Allergy Act bessy Wellbutrin rash Drug Allergy Active REASON FOR REFERRAL No Information MEDICATIONS Medication SIG (Take, Route, Frequency, Duration) Notes Start Date End Date Status Atorvastatin Calcium 20 MG 1 tablet Oral ly Once a day for 90 days 03/11/2023 Active Biotin Active hydrOXYzine Pamoate 25 MG TAKE 1 CAPSULE BY MOUTH EVERY DAY AT BEDTIME NEEDED for 90 Active ZyrTEC Allergy Activ e Sertraline HCl 100 MG TAKE 1 TABLET BY M OUTH EVERY DAY for 90 Active PROBLEMS Problem Type ICD Code Onset Dates Problem Status W/U Status Risk SNOMED Code Notes Problem Hypothyroidism, unspecified (E03.9) Active confirmed Hypothyroidism (31956561) Problem Thyrotoxicosis, unspecified without thyrotoxic crisis or storm (E05.90) Active confirmed Thyrotoxic osis (44066425) Problem Insomnia, unspecified (G47.00) Active confirmed Insomnia (976300603) Problem Left knee pain, unspecified chronicity (M25.562) Active confirmed 31426444 Problem Acquired hypothyroidism (E03.9) Active confirmed 473641799 Problem Anxiety (F41.9) Active confirmed Anxiet y (55955187) Problem Insomnia, unspecified type (G47.00) Active confirmed 140647527 Problem Seasonal allergies (J30.2) Active confirmed 745519234 Problem Vitamin D deficiency (E55.9) Active confirmed Vitamin D deficiency (93875680) Problem SVT (supraventricular tachycardia) (I47.1) Active confirmed Supraventricula r tachycardia (0488752) Encounters Encounter Location Date Provider Diagnosis [facility] [address] [facility] [place] [address] 02/20/2024 YODIT ROSE PLAN OF TREATMENT Pending Test Test Name Order Date X ray : Shoulder, right 07/29/2022 Hemoglobin A1c 11/10/2020 TSH 11/10/2020 Insulin, Fasting 11/10/2020 Lipid Panel 11/10/2020 Comp. Metabolic Panel (14) 11/10/2020 CBC 11/10/2020 MAMMOGRAM, SCREENING 04/12/2021 25OH VITAMIN D 11/10/2020 US Breast Right Limited 07/29/2022 LIPID PANEL, STANDARD 03/11/2023 Insurance Providers Payer Name Payer Address Payer Phone Subscriber Number Group Number Insured Name Patient Relationship to Insured Coverage Start Date Coverage End Date [employer] [address] [place] [phone] [id number] GURPREET MARTI Self - patient is the insured MEDICAL (GENERAL) HISTORY Medical History History ICD Code Hypothyroidism, unspecified type E03.9 SVT (supraventricular tachycardia) I47.1 Seasonal allergies J30.2 Anxiety F41.9 Surgical History Surgery Date(Month/Year) right knee left breast lumpectomy pilonidal cyst
--- OUTSIDE RECORDS SUMMARY | 2024-12-13 17:28 | XMS_ITS ---
Author Organization [facility], [facility] Address [address] [place], [place] [address] Care Team Providers Care Rn Teacher Name Role Phone ANUPAMA GRANADOS Primary Care Provider Araceli Bill [phone] REASON FOR VISIT New Referral Request Encounters Encounter Location Date Provider Diagnosis [facility], [facility] [address], [place] [phone] 10/16/2023 Araceli Bill PLAN OF TREATMENT No Information Progress Notes * THEODORE BUIOB:[birth year] (38 yo F)Acc No.[id number]:10/16/2023 Patient:??MARY BUI :1985?Age:38 Y?Sex:Fe male Phone: Address:[address] [place] [address] [place] [address] * true * Date:??
--- OUTSIDE RECORDS SUMMARY | 2024-12-13 17:28 | XMS_ITS ---
Author Organization [facility] Address [address] [place] [address] Care Team Providers Care Coil Machine Operator Name Role Phone SULY MULLER Unavailable [phone] YODIT ROSE Unavailable [phone] Encounters Encounter Location Date Provider Diagnosis [facility] [address] [place] [address] 02/20/2024 YODIT ROSE PLAN OF TREATMENT No Information Progress Notes * GURPREET COWAN DELDOB:0 1985 (39 yo F)Acc No.[id number]:02/20/2024 CPE Patient:??MARY COWAN Provider:??YODIT ROSE PA-C :1985?Age:38 Y?Sex:Fe male Date:02/20/2024 Address[place] [place] Subjective: * Chief Complaints: * ? * Medical History:?? Objective: Assessment: Plan: * Treatment: * Images: Billing Information: * Visit Code:?? * Procedure Codes:?? Care Plan Details* * Sign off status: Pending * Provider:??YODIT ROSE PA-C Date:??07/2024
--- OUTSIDE RECORDS SUMMARY | 2024-12-13 17:28 | XMS_ITS ---
Author Organization [facility], [facility] Address [address] [place], [place] [address] Care Team Providers Care Speech Therapy Teacher Name Role Phone ANUPAMA GRANADOS Primary Care Provider Araceli Bill [phone] REASON FOR VISIT f/u labs & pap Encounters Encounter Location Date Provider Diagnosis [facility], [facility] [address] [place], [place] [phone] 04/13/2024 Araceli Bill PLAN OF TREATMENT No Information Progress Notes * THEODORE BUIOB:[birth year] (39 yo F)Acc No.[id number]:04/13/2024 Progress Notes Patient:??ARIANA MATHEWSFEMIMARY MAGALLANES Provider:??Araceli Bill DNP :1985?Age:39 Y?Sex:Fe male Date:04/13/2024 Phone: Address:[address] [place] [address] [id number] Pcp:ANUPAMA GRANADOS Subjective: * Chief Complaints: * ?1. F/u labs & pap. * Medical History:?? Objective: Assessment: Plan: * Treatment: * Billing Information: * Visit Code:?? * Procedure Codes:?? * Sign off status: Pending * Provider:??Araceli Bill DNP Date:??11/2023
--- OUTSIDE RECORDS SUMMARY | 2024-12-13 17:28 | XMS_ITS | Clinical Summary ---
Author Organization [facility] Address [address] [place] [address] Care Team Providers Care Pi/Senior Research Associate Name Role Phone Yulia Mix MD Primary Care Provider [phone] Allergies Active Allergy Reactions Criticality Noted Date [...] complete this topic Procedures * Due to [place] [employer] law, this organization might not be sharing negative HIV tests. Procedure Name Priority Date/Time Associated Diagnosis Comments PAP SMEAR Routine 10/21/2001 1:48 PM EST from Last 3 Months or Most Recently Relevant to Health Maintenance Results * Due to [place] [employer]Mist law, this organization might not be sharing negative HIV tests. * PAP SMEAR (10/21/2001 1:48 PM EST) PAP SOURCE [facility] (CLIA# [id number]) Comment:None given PAP NUMBER OF SLIDES RECEIVED 1 [facility] (CLIA# [id number]) LMP [facility] (CLIA# [id number]) Comment:10/09/01 PAP CLINICAL HISTORY [facility] (CLIA# [id number]) Comment:Hormone therapy LQPAPENDO [facility] (CLIA# [id number]) Comment:Endocervical cells a re absent. PAP SPECIMEN ADEQUACY [facility] (CLIA# [id number]) Comment:Satisfactory specime n for Cytologic evaluation. INTERPRETATION/RE SULT - PAP [facility] (CLIA# [id number]) Comment: WITHIN NORMAL LIMITS (Please note comment under endocervical component) PAP PATHOLOGY GROUP [facility] (CLIA# [id number]) Comment: [address] [address] Screening performed at Path [facility], [address] [place] [address] 10/21/2001 1:48 PM EST 10/21/2001 1:48 PM EST Blessing Infante MD PATHOLOGY Final Result [facility] (CLIA# [id number]) [address] [place] [address] from Last 3 Months or Most Recently Relevant to Health Maintenance Insurance INACTIVE [facility] FFS DIRECT CARE (HMO) Care Teams Pi/Senior Research Associate Relationship Specialty Start Date End Date Yulia Mix MD PCP - General Family Medicine 03/17/17
--- OUTSIDE RECORDS SUMMARY | 2024-12-13 17:28 | XMS_ITS | Clinical Summary ---
Author Organization [facility] Address [address] [place] [address] Care Team Providers Care Carbonizer Name Role Phone Unavailable Primary Care Provider [...] Smear 2005 Breast Cancer Screening (Mammogram) 2024 [id number] (2023- season) 2024 021, 01/02/2021 Imm-Influenza (#1) 2024 08/09/2020, 0 06/28/2019, 09/10/2018, Additional history exists Alcohol and Drug Screen 10/13/2024 Depression Annual Screen 10/13/2024 Imm-DTaP/Tdap/Td (4 - Td or Tdap) 06/28/2029 06/28/2019, 09/14/2012, 10/13/2001 Cervical Ablation/Cold-Knife Conization Discontinued Cervical Cryotherapy Discontinued Colposcopy Discontinued Endometrial Biopsy Discontinued Excision/Leep Discontinued HPV Genotyping Discontinued Vaginal Pap Discontinued Vulvoscopy Discontinued Insurance [facility] INSURANCE Member Subscriber Plan / Payer (Ef fective 2021-Present) Name:Maryellen Daniels Relation to Subscriber:Self Name:Maryellen Daniels Payer ID:[id number] Type:Pratibha Address: [address] [address]
--- OUTSIDE RECORDS SUMMARY | 2024-12-13 17:29 | XMS_ITS ---
Author Organization [facility], [facility] Address [address] [place], [place] [address] Care Team Providers Care Magnetometer Operator Name Role Phone ANUPAMA GRANADOS Primary Care Provider [phone] Araceli Bill [phone] REASON FOR VISIT Needs referral Encounters Encounter Location Date Provider Diagnosis [facility], [facility] [address] [place], [place] [phone] 10/17/2023 Araceli Bill PLAN OF TREATMENT No Information Progress Notes * THEODORE BUIOB:[birth year] (38 yo F)Acc No.[id number]:10/17/2023 Patient:??MARY BUI :1985?Age:38 Y?Sex:Fe male Phone: Address:[address] [place] [address] [place] [address] * true * Date:??
[2024-12-14 09:04] LABS: Thyroid Peroxidase Antibodies 23 IU/mL (<9)
== END 2024-12-13 14:39 | disposition home or self-care (01) ==
LOC: HO.LAB 14:38
PROVIDERS: PCP Nurse Practitioner Family; Visit Provider Chiropractor
DX: Z00.00 Encounter for general adult medical examination without abnormal findings (principal); O90.5 Postpartum thyroiditis; Z13.228 Encounter for screening for other metabolic disorders; Z13.1 Encounter for screening for diabetes mellitus
CPT/HCPCS: 36415; 80053; 80061; 82043; 82306; 82570; 82607; 82746; 83036; 84443; 86376

== ENCOUNTER 2024-12-30 14:00 | Outpatient (REF) | payer OTHER, SELFPAY ==
--- NOTE | ~2024-12-30 | US_ITS ---
EXAMINATION: US THYROID HISTORY: O90.5 - thyroiditis TECHNIQUE: Real-time grayscale ultrasound imaging was performed and images were reviewed. COMPARISON: There are no prior studies for comparison. FINDINGS: SIZE: The right thyroid lobe measures 5.6 x 1.2 x 1.4 cm. The left thyroid lobe measures 5.8 x 1.3 x 1.8 cm. The isthmus measures 2 mm. FLOW: Flow to the gland is normal on the right and slightly increased on the left. ECHOGENICITY: The echotexture of the gland is normal. NODULES: No nodules are identified. US/US thyroid IMPRESSION: Slight increased vascularity of the left thyroid lobe. Otherwise unremarkable thyroid ultrasound. No nodules are identified. ACR TI-RADS Guidelines TR1: Benign, No follow-up or biopsy required TR2: Not Suspicious, No biopsy indicated TR3: Mildly Suspicious, FNA if >= 2.5 cm, Follow if >= 1.5 cm TR4: Moderately Suspicious, FNA if >= 1.5 cm, Follow if >= 1.0 cm TR5: Highly Suspicious, FNA if >= 1.0 cm, Follow if >= 0.5 cm Electronically signed by: Sridhar Lopez MD 12/31/2024 08:30 AM EDT
--- OUTSIDE RECORDS SUMMARY | 2024-12-30 16:43 | XMS_ITS | Patient Health Record ---
Author Organization [facility] Address [address] [place] [address] Care Team Providers Care Senior It Architect Name Role Phone SULY MULLER Unavailable [phone] MILTONYODIT Rojas Unavailable [phone] ALLERGIES Allergen (clinical drug ingredient) Drug/Non Drug [...] Problem Hypothyroidism, unspecified (E03.9) Active confirmed Hypothyroidism (11524908) Problem Thyrotoxicosis, unspecified without thyrotoxic crisis or storm (E05.90) Active confirmed Thyrotoxic osis (03537772) Problem Insomnia, unspecified (G47.00) Active confirmed Insomnia (893620146) Problem Left knee pain, unspecified chronicity (M25.562) Active confirmed 38166596 Problem Acquired hypothyroidism (E03.9) Active confirmed 342627950 Problem Anxiety (F41.9) Active confirmed Anxiet y (94522749) Problem Insomnia, unspecified type (G47.00) Active confirmed 212158566 Problem Seasonal allergies (J30.2) Active confirmed 235748208 Problem Vitamin D deficiency (E55.9) Active confirmed Vitamin D deficiency (42431871) Problem SVT (supraventricular tachycardia) (I47.1) Active confirmed Supraventricula r tachycardia (5764703) Encounters Encounter Location Date Provider Diagnosis [facility] [address] [facility] [place] [address] 02/20/2024 YODIT ROSE PLAN OF TREATMENT Pending [...] Insured Coverage Start Date Coverage End Date [employer] [address] [place] [phone] [id number] GURPREET MARTI Self - patient is the insured MEDICAL (GENERAL) HISTORY Medical History History ICD Code Hypothyroidism, unspecified type E03.9 SVT (supraventricular tachycardia) I47.1 Seasonal allergies J30.2 Anxiety F41.9 Surgical History Surgery Date(Month/Year) right knee left breast lumpectomy pilonidal cyst
--- OUTSIDE RECORDS SUMMARY | 2024-12-30 16:43 | XMS_ITS ---
Author Organization [facility] Address [address] [facility] [place] [place] [address] Care Team Providers Care Roll Tender Name Role Phone SULY MULLER Unavailable [phone] YODIT ROSE Unavailable [phone] Encounters Encounter Location Date Provider Diagnosis [facility] [address] [facility] [place] [place] [address] 02/20/2024 YODIT ROSE PLAN OF TREATMENT No Information Progress Notes * GURPREET COWAN DELDOB:0 1985 (39 yo F)Acc No.[id number]:02/20/2024 CPE Patient:??MARY COWAN Provider:??YODIT ROSE PA-C :1985?Age:38 Y?Sex:Fe male Date:02/20/2024 Address[place] [place], [place] Subjective: * Chief Complaints: * ? * Medical History:?? Objective: Assessment: Plan: * Treatment: * Images: Billing Information: * Visit Code:?? * Procedure Codes:?? Care Plan Details* * Sign off status: Pending * Provider:??YODIT ROSE PA-C Date:??07/2024
--- OUTSIDE RECORDS SUMMARY | 2024-12-30 16:44 | XMS_ITS | Clinical Summary ---
Author Organization [facility] Address [address] [place] [address] Care Team Providers Care Manganese Breaker Name Role Phone Rosalio Tesfaye MD Primary Care Provider [phone] Lizbeth Cancino MD Unavailable [phone] Agnes Engle MD Unavailable Unavailable Source Comments [...] so, obtain the minor's consent prior to disclosure.[facility] Allergies Active Allergy Reactions Criticality Noted [...] change in or delivery plan. Delivery at [facility] as previously planned. No need for [...] patient's age to complete this topic Insurance [facility] PPO [facility] PPO Care Teams Manganese Breaker Relationship Specialty Start Date End Date Rosalio Tesfaye MD [address] [place] [address] PCP - General Maternal and Medicine 10/15/21 Lizbeth Cancino MD [address] [place] [address] Obstetrics and Gynecology 10/09/21 Agnes Engle MD [address] [place] [address] Consulting Physician Cardiology 10/15/21
--- OUTSIDE RECORDS SUMMARY | 2024-12-30 16:44 | XMS_ITS | Clinical Summary ---
Author Organization [facility] Address [address] [place] [address] Care Team Providers Care Charter Boat Captain Name Role Phone Unavailable Primary Care Provider [...] Smear 2005 Breast Cancer Screening (Mammogram) 2024 [id number] (2023- season) 2024 021, 01/02/2021 Imm-Influenza (#1) 2024 08/09/2020, 0 06/28/2019, 09/10/2018, Additional history exists Alcohol and Drug Screen 10/13/2024 Depression Annual Screen 10/13/2024 Imm-DTaP/Tdap/Td (4 - Td or Tdap) 06/28/2029 06/28/2019, 09/14/2012, 10/13/2001 Cervical Ablation/Cold-Knife Conization Discontinued Cervical Cryotherapy Discontinued Colposcopy Discontinued Endometrial Biopsy Discontinued Excision/Leep Discontinued HPV Genotyping Discontinued Vaginal Pap Discontinued Vulvoscopy Discontinued Insurance [facility] INSURANCE Member Subscriber Plan / Payer (Ef fective 2021-Present) Name:Maryellen Daniels Relation to Subscriber:Self Name:Maryellen Daniels Payer ID:[id number] Type:Pratibha Address: [address] [address]
--- OUTSIDE RECORDS SUMMARY | 2024-12-30 16:44 | XMS_ITS ---
Author Organization [facility], [facility] Address [address] [place], [place] [address] Care Team Providers Care Veterinary Hospital Shift Lead Name Role Phone ANUPAMA GRANADOS Primary Care Provider Araceli Bill [phone] REASON FOR VISIT Needs referral Encounters Encounter Location Date Provider Diagnosis [facility], [facility] [address] [place], [place] [phone] 10/17/2023 Araceli Bill PLAN OF TREATMENT No Information Progress Notes * THEODORE BUIOB:[birth year] (38 yo F)Acc No.[id number]:10/17/2023 Patient:??MARY BUI :1985?Age:38 Y?Sex:Fe male Phone: Address:[address] [place] [address] [place] [address] * true * Date:??
--- OUTSIDE RECORDS SUMMARY | 2024-12-30 16:44 | XMS_ITS | Clinical Summary ---
Author Organization [facility] Address [address] [place] [address] Care Team Providers Care Actuarial Manager Name Role Phone Yulia Mix MD Primary Care Provider [phone] Allergies Active Allergy Reactions Criticality Noted Date [...] complete this topic Procedures * Due to [place] [employer] law, this organization might not be sharing negative HIV tests. Procedure Name Priority Date/Time Associated Diagnosis Comments PAP SMEAR Routine 10/21/2001 1:48 PM EST from Last 3 Months or Most Recently Relevant to Health Maintenance Results * Due to [place] [employer] law, this organization might not be sharing negative HIV tests. * PAP SMEAR (10/21/2001 1:48 PM EST) PAP SOURCE [facility] (CLIA# [id number]) Comment:None given PAP NUMBER OF SLIDES RECEIVED 1 [facility] (CLIA# [id number]) LMP [facility] (CLIA# [id number]) Comment:10/09/01 PAP CLINICAL HISTORY [facility] (CLIA# [id number]) Comment:Hormone therapy LQPAPENDO [facility] (CLIA# [id number]) Comment:Endocervical cells a re absent. PAP SPECIMEN ADEQUACY [facility] (CLIA# [id number]) Comment:Satisfactory specime n for Cytologic evaluation. INTERPRETATION/RE SULT - PAP [facility] (CLIA# [id number]) Comment: WITHIN NORMAL LIMITS (Please note comment under endocervical component) PAP PATHOLOGY GROUP [facility] (CLIA# [id number]) Comment: [address] [address] Screening performed at Path [facility], [address] [place] [address] 10/21/2001 1:48 PM EST 10/21/2001 1:48 PM EST Blessing Infante MD PATHOLOGY Final Result [facility] (CLIA# [id number]) [address] [place] [address] from Last 3 Months or Most Recently Relevant to Health Maintenance Insurance INACTIVE [facility] FFS DIRECT CARE (HMO) Care Teams Actuarial Manager Relationship Specialty Start Date End Date Yulia Mix MD PCP - General Family Medicine 03/17/17
--- OUTSIDE RECORDS SUMMARY | 2024-12-30 16:44 | XMS_ITS ---
Author Organization [facility], [facility] Address [address] [place], [place] [address] Care Team Providers Care Money Market Dealer Name Role Phone ANUPAMA GRANADOS Primary Care Provider Araceli Bill [phone] REASON FOR VISIT New Referral Request Encounters Encounter Location Date Provider Diagnosis [facility], [facility] [address] [place], [place] [phone] 10/16/2023 Araceli Bill PLAN OF TREATMENT No Information Progress Notes * THEODORE BUIOB:[birth year] (38 yo F)Acc No.[id number]:10/16/2023 Patient:??MARY BUI :1985?Age:38 Y?Sex:Fe male Phone: Address:[address] [place] [address] [place] [address] * true * Date:??
--- OUTSIDE RECORDS SUMMARY | 2024-12-30 16:44 | XMS_ITS ---
Author Organization [facility], [facility] Address [address] [place], [place] [address] Care Team Providers Care Loan Operations Specialist Name Role Phone ANUPAMA GRANADOS Primary Care Provider Araceli Bill [phone] REASON FOR VISIT f/u labs & pap Encounters Encounter Location Date Provider Diagnosis [facility], [facility] [address] [place], [place] [phone] 04/13/2024 Araceli Bill PLAN OF TREATMENT No Information Progress Notes * THEODORE BUIOB:[birth year] (39 yo F)Acc No.[id number]:04/13/2024 Progress Notes Patient:??ARIANA MATHEWSFEMIMARY MAGALLNAES Provider:??Araceli Bill DNP :1985?Age:39 Y?Sex:Fe male Date:04/13/2024 Phone: Address:[address] [place] [address] [facility] Pcp:ANUPAMA GRANADOS Subjective: * Chief Complaints: * ?1. F/u labs & pap. * Medical History:?? Objective: Assessment: Plan: * Treatment: * Billing Information: * Visit Code:?? * Procedure Codes:?? * Sign off status: Pending * Provider:??Araceli Bill DNP Date:??11/2023
== END 2024-12-30 14:01 | disposition home or self-care (01) ==
LOC: HO.US 14:00
PROVIDERS: PCP Nurse Practitioner Family; Visit Provider Nurse Practitioner Family
DX: O90.5 Postpartum thyroiditis (principal)
CPT/HCPCS: 76536

== ENCOUNTER → 2024-12-30 14:02 | Outpatient (BNV) | payer OTHER, SELFPAY | PROVIDERS: PCP Nurse Practitioner Family; Visit Provider Radiology Diagnostic Radiology | DX: O90.5 Postpartum thyroiditis (principal) | CPT/HCPCS: 76536 ==

== ENCOUNTER 2025-01-05 10:33 | Outpatient (AMB) | payer OTHER, SELFPAY ==
--- NOTE | 2025-01-05 10:36 | MHC.PC.OV ---
Vital Signs 01/05/25 10:39 Height 5 ft 5 in Weight 153 lb 2 oz BMI 25.5 BP 120/72 Blood Pressure Location Lt brachial Position Sitting Respiration 12 Pulse 64 Pulse Source Pulse Oximeter Temp 97.6 F Temp Source Oral Pulse Oximetry (%) 99 Oxygen Delivery Method Room Air Intake Visit Reasons: 30 min 4-6 weeks fu thyroid us, labs, med mgmt Intake Note: Follow up on imaging and labs Application Penetration Tester Required: No Allergies bupropion [From WELLBUTRIN] Allergy (Unknown, Verified 01/05/25 10:44) RASH Medication List - Last Reconciled 01/05/25 by Janelle Schaeffer, METAL PRECISION MACHINE ASSEMBLER-BC baclofen 5 mg PO BEDTIME PRN biotin mcg PO cetirizine (Wal-Zyr (cetirizine)) 10 mg PO DAILY PRN hydroxyzine pamoate mg PO PRN methylphenidate HCl ER 30 mg PO QAM sertraline 175 mg PO DAILY Tobacco use date assessed: 01/05/25 Dental Screening Dental Screen Date: 01/05/25 Did you have a dental visit in the last 12 months?: Yes Did you have a dental problem in the last 6 months where you did not have access to dental care?: No Was dental information given to patient?: Patient has dentist HPI HPI Comments History of Present Illness Details 39 y/o F with PVC, SVT, bakers cyst R, hyperthyroidism, IBS, ADD, MDD, GAGE, seasonal allergies Social; Vicente Webster 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 [employer] , 2 children, 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 Family hx: mom with thyroid dz s/p thyroidectomy Surgery: lumpectomy L breast benign 2016, 3 surgery R knee Health Maintenance Tdap 2021 Flu UTD Mammo 07/2024 @ [facility] rec'd WNL Pap 07/2024 [facility] report requested Specialists Cards last visit 2021 recommend visit q2 years; now active w/ [facility] Cards Dr Mena every year [facility] 2023 last exam - needs reading glasses Counselor and med prescriber Screener Operator wellbutrin allergy testing in February Derm appt pending Neuro May 13 2025 at [facility] [place] - The patient is a 39-year-old female presenting for a multifaceted review involving anxiety disorder, ADHD management, migraine analysis, thyroid function assessment, and familial endocrine history. - Persistent nighttime anxiety has been present for years, managed with sertraline for over 15 years, contributing to sleep disruptions and vivid dreams. Went off when preg for son, back on, stayed on during preg with dtr. Affecting sleep. Intense dreams. Lots of thoughts affecting sleep. Spring and Summer are better for mood. - ADHD management attempted with varying success via methylphenidate, correlating higher doses with exacerbated headaches. The cessation of medication aligned with reduced headache frequency. - Chronic migraines noted to have decreased frequency from daily to tri-weekly occurrences, attributed partly to discontinuation of methylphenidate and occasional baclofen use for severe episodes w + effect - Recent lab findings included hypercholesterolemia, although mitigated by high HDL levels, normalizing heart disease risk. - Thyroid risks highlighted by family history, accompanied by a recent ultrasound showing left thyroid vascularity and positive antibodies, despite normal TSH readings. Maternal history indicates a severe presentation of Graves? disease. - The presence of supraventricular tachycardia remains without known exacerbating factors. Physical Exam General: Well developed, well nourished, in no acute distress. Appears stated age. Head: Normocephalic, atraumatic. Noted presence of knots at the base of the skull. Neck: Supple, no adenopathy or thyromegaly. Palpable nontender thyroid, trachea midline Lungs: Clear to auscultation bilaterally. No rales, rhonchi or wheeze noted. Good air flow in all carlos. Heart: Regular rate and rhythm. No murmurs, click, rubs or gallops are noted. Extremities: No clubbing, cyanosis nor edema is noted. Neurologic: Gait and station normal. Cranial Nerves 2-12 intact. Motor strength grossly symmetrical and intact. No sensory loss. Balance normal. Psych: Normal eye contact, affect and mood appropriate, and normal interactions. Patient is alert and appropriate to context. Results 12/2024 LDL and TC high, elevated TPO Ab otherwise labs wnl thyroid US: Slight increased vascularity of the left thyroid lobe. Otherwise unremarkable thyroid ultrasound. No nodules are identified. Discussion We discussed the patient's current health status, emphasizing the management of anxiety disorder, ADHD, migraines, and the implications of thyroid function due to family history. I reviewed the ongoing management plan for anxiety, including strategies to taper off sertraline and mitigate nighttime anxiety using prazosin. In consideration of ADHD management, we deliberated the re-initiation of Ritalin, beginning at a low dose, to monitor any recurrence of headaches. Thyroid concerns necessitate an endocrinology consultation due to positive antibody presence, with referral planned to [facility], expecting further assessment and guidance from mobile service rv technician Dr. Sheldon. The patient demonstrated understanding of recommendations and is committed to a follow-up arrangement in four weeks to evaluate the therapeutic effectiveness and any potential adverse effects. A&P 1. Anxiety Disorder: I will oversee the tapering of sertraline, replacing with prazosin for mitigated nighttime anxiety. Monitoring includes vigilance for exacerbated anxiety or adverse withdrawal symptoms. *Note hydroxyzine for allergies only not GAGE 2. Attention Deficit Hyperactivity Disorder (ADHD): The reintroduction of Ritalin is planned, focusing on dosage titration and symptom monitoring relating to headache frequency. Adjustments will follow ongoing evaluation. 3. Migraines: Baclofen use is advised as needed for severe episodes, correlating response to ADHD medication tapering for further guidance on headache etiology. Neuro appt scheduled 05/2025 4. Hypercholesterolemia: Given high HDL levels, no immediate intervention is required beyond lifestyle monitoring to modulate slightly elevated cholesterol levels. 5. Thyroid Function: Endocrinology consultation is advised to ascertain thyroid risk, guided by positive antibodies and ultrasound findings. Referral to Dr. Sheldon is arranged, emphasizing preventive strategies. 6. Supraventricular Tachycardia (SVT): SVT considerations are incorporated into thyroid management, with an advisory on ongoing observation and symptom awareness. Plan Ritalin 10mg po BID. Start 5mg QAM x 1 week, then 5mg BID. Increase to a max of 10 mg BID. Start Prazosin 1mg at HS to help w/ anxiety. Edu s/e headaches. Taper off sertraline: 150mg 1 week 125mg 1 week 100 mg x 1 week 75 mg x 1 week 50 mg x 1week 25mg x 1 week Hold dosing for sx. RTO 4 weeks to fu on med changes, sooner PRN Total time spent caring for the patient today was 45 minutes. This includes time spent before the visit reviewing the chart, time spent during the visit, and time spent after the visit on documentation, reviewing laboratory results, diagnostic imaging, medications, performing a medically necessary evaluation, counseling on diagnoses, care coordination, ordering appropriate tests, ordering appropriate medications, review of tests performed by other providers, reporting test results with the patient, communication with other healthcare providers. [facility] Medical History (Updated 01/05/25 @ 18:09 by Janelle Schaeffer, [facility]) Anxiety and depression Eczema Incontinence PVC (premature ventricular contraction) Sinusitis SVT (supraventricular tachycardia) Surgical History (Updated 12/10/24 @ 11:22 by Angle Bacon MA) H/O right knee surgery History of lumpectomy Family History (Updated 12/10/24 @ 11:26 by Angle Bacon MA) Father HTN (hypertension) High cholesterol Maternal Grandmother Cardiovascular disease Clotting disorder Mother Thyroid disorder Mental health disorder Paternal Grandmother Colon cancer Maternal Grandfather Lymphoma Paternal Grandfather Pancreatic cancer Social History (Updated 12/10/24 @ 11:15 by Angle Bacon MA) Household Members: Spouse and Children Both parents involved: No Caregiver staying overnight: No Housing: House Are you a primary outdoor emergency care technician to a significant other at home: Yes Do you presently have visiting nurse or other home services: No 75 years or older and lives alone: No Alcohol intake: current Alcohol intake frequency: a few times a month Patient Tobacco Use Status: Never used Tobacco e-Cigarette/Vaping Use: Never Used Second Hand Smoke Exposure: No service: No Current occupational status: employed 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 1. Little interest or pleasure in doing things: not at all 2. Feeling down, depressed, or hopeless: not at all 3. Trouble falling or staying asleep, or sleeping too much: not at all 4. Feeling tired or having little energy: not at all 5. Poor appetite or overeating: not at all 6. Feeling bad about yourself - or that you are a failure or have let yourself or your family down: not at all 7. Trouble concentrating on things, such as reading the newspaper or watching television: not at all 8. Moving or speaking so slowly that other people could have noticed. Or the opposite - being so fidgety or restless that you have been moving around a lot more than usual: not at all 9. Thoughts that you would be better off or of hurting yourself in some way: not at all Total score: 0 72192 - PHQ-9 Billing: Yes Source: Developed by Masood Rodrigeset B.W. Anthony, Ceferino Lacey and colleagues, with an educational addi from [employer]. Thrive Questionnaire Date Thrive assessed: 12/03/24 I am a: Patient What is your living situation today?: I have a steady place to live Within the past 12 months, did the food you bought not last and you didn't have the money to get more?: Never true Within the past 12 months, did you worry whether your food would run out before you got money to buy more?: Never true Do you have trouble paying for medicines?: No Do you have trouble getting transportation to medical appointments?: No Do you have trouble paying your heating and electricity bill?: No Do you have trouble taking care of your child, family member or friend?: No Do you have trouble with day-to-day activities such as bathing, preparing meals, shopping, managing finances, etc.?: No Are you currently unemployed and looking for a job?: No Are you interested in more education?: No Please select the resources that you would like help with: None Currently or been in a relationship where the following occur: No concerns reported THRIVE Score: 0 GAGE-7 AMB Questionnaire GAGE-7 Date GAGE - 7 assessed: 01/05/25 Feeling nervous, anxious, or on edge: 0 = Not at all Not being able to stop or control worryin = Not at all Worrying too much about different things: 0 = Not at all Trouble relaxin = Not at all Being so restless that it is hard to sit still: 0 = Not at all Becoming easily annoyed or irritable: 0 = Not at all Feeling afraid as if something awful might happen: 0 = Not at all Total GAGE-7 score (0-4 normal; 5-9 mild; 10-14 moderate; 15-21 severe): 0 Source: Developed by Drs. Sridhar Gabriel, Ebony Cruz, Ceferino Lacey and colleagues, with an educational addi from [employer]. GAGE-7 Assessment Billing GAGE-7 Assessment Tool: GAGE-7 Assessment 52980 Physical exam (Primary Care) Vital Signs: Last Vital Signs Temp 97.6 F 01/05/25 10:39 Pulse 64 01/05/25 10:39 Resp 12 01/05/25 10:39 BP 120/72 01/05/25 10:39 Pulse Ox 99 01/05/25 10:39 Oxygen Delivery Method Room Air 01/05/25 10:39 BMI result Body Mass Index 25.5 Tobacco/Smoking Status: Tobacco use Status Tobacco use date assessed 01/05/25 01/05/25 10:41 Patient Tobacco Use Status Never used Tobacco 01/05/25 10:36 e-Cigarette/Vaping Use Never Used 01/05/25 10:36 PHQ-9: PHQ-9 Score PHQ-9: Total score 0 01/05/25 10:42 Thrive Assessment: Date of Thrive Assessment Date Thrive assessed 12/03/24 01/05/25 10:36 Currently or been in a relationship where the following occur: No concerns reported Coding Level of Care Code Est Pt Level 5 (39066) Complex EM visit Add On G2211 Diagnoses SVT (supraventricular tachycardia) I47.1 thyroiditis O90.5 Family history of Graves' disease Z83.49 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 GAGE (generalized anxiety disorder) F41.1 Attention deficit hyperactivity disorder (ADHD), predominantly inattentive type F90.0 Attention deficit-hyperactivity disorder type: predominantly inattentive Chronic tension-type headache, not intractable G44.229 Headache type: tension-type Intractability: not intractable Mild episode of recurrent major depressive disorder F33.0 Major depression episode severity: mild Additional Codes GAGE-7 Assessment Billing - GAGE-7 Assessment Tool: GAGE-7 Assessment 67396 ([id number]) PHQ-9 - 50837 - PHQ-9 Billing: Yes ([id number]) Assessment & Plan Assessment & Plan (1) SVT (supraventricular tachycardia): Code(s): I47.1 - Supraventricular tachycardia Category: Medical (2) thyroiditis: Code(s): O90.5 - thyroiditis Category: Medical (3) Family history of Graves' disease: Comment: mom Code(s): Z83.49 - Family history of other endocrine, nutritional and metabolic diseases Category: Medical (4) Anti-TPO antibodies present: Code(s): R76.8 - Other specified abnormal immunological findings in serum Category: Medical (5) GAGE (generalized anxiety disorder): Code(s): F41.1 - Generalized anxiety disorder Category: Medical (6) ADHD: Code(s): F90.9 - Attention-deficit hyperactivity disorder, unspecified type Category: Medical Qualifiers: Attention deficit-hyperactivity disorder type: predominantly inattentive Qualified Code(s): F90.0 - Attention-deficit hyperactivity disorder, predominantly inattentive type (7) Chronic headache: Code(s): R51.9 - Headache, unspecified; G89.29 - Other chronic pain Category: Medical Qualifiers: Headache type: tension-type Intractability: not intractable Qualified Code(s): G44.229 - Chronic tension-type headache, not intractable (8) MDD (major depressive disorder), recurrent episode: Code(s): F33.9 - Major depressive disorder, recurrent, unspecified Category: Medical Qualifiers: Major depression episode severity: mild Qualified Code(s): F33.0 - Major depressive disorder, recurrent, mild Plan . Orders: Referrals Endocrinology Referral I47.1 - Supraventricular tachycardia, O90.5 - thyroiditis, R76.8 - Other specified abnormal immunological findings in serum, Z83.49 - Family history of other endocrine, nutritional and metabolic diseases Medications: New methylphenidate HCl (Ritalin) Partial Fill upon patient request. 10 mg PO BID 60 tabs 0RF prazosin 1 mg PO BEDTIME 30 caps 1RF
[2025-01-05 10:39] VITALS: BP 120/72; PULSE 64; RESP 12; TEMP 36.4; O2SAT 99; BMI 25.5
== END 2025-01-05 11:12 | disposition home or self-care (01) ==
LOC: HO.HMCFM 10:34
PROVIDERS: PCP Nurse Practitioner Family; Visit Provider Nurse Practitioner Family
DX: I47.10 Supraventricular tachycardia, unspecified (principal); F33.0 Major depressive disorder, recurrent, mild; O90.5 Postpartum thyroiditis; Z83.49 Family history of other endocrine, nutritional and metabolic diseases; R76.8 Other specified abnormal immunological findings in serum; F41.1 Generalized anxiety disorder; F90.0 Attention-deficit hyperactivity disorder, predominantly inattentive type; G44.229 Chronic tension-type headache, not intractable

== ENCOUNTER → 2025-01-05 10:33 | Outpatient (BNVA) | payer OTHER, SELFPAY | PROVIDERS: PCP Nurse Practitioner Family; Visit Provider Nurse Practitioner Family | DX: I47.10 Supraventricular tachycardia, unspecified (principal); O90.5 Postpartum thyroiditis; R76.8 Other specified abnormal immunological findings in serum; F41.1 Generalized anxiety disorder; F90.0 Attention-deficit hyperactivity disorder, predominantly inattentive type; G44.229 Chronic tension-type headache, not intractable; F33.0 Major depressive disorder, recurrent, mild; Z83.49 Family history of other endocrine, nutritional and metabolic diseases | CPT/HCPCS: 96127 ==

== ENCOUNTER 2025-02-07 09:29 | Outpatient (AMB) | payer OTHER, SELFPAY ==
--- NOTE | 2025-02-07 09:31 | A.OFFPC_ITS ---
Vital Signs 02/07/25 09:34 Height 5 ft 5 in Weight 152 lb 8 oz BMI 25.4 BP 118/68 Blood Pressure Location Rt brachial Position Sitting Respiration 12 Pulse 67 Pulse Source Pulse Oximeter Temp 97.2 F Temp Source Oral Pulse Oximetry (%) 98 Oxygen Delivery Method Room Air Intake Visit Reasons: 4 weeks 30 min FU med changes Intake Note: Follow up on med changes Hat Former Required: No Allergies bupropion [From WELLBUTRIN] Allergy (Unknown, Verified 02/07/25 09:53) RASH Medication List - Last Reconciled 02/07/25 by Janelle Schaeffer, OFFICE RECEPTIONIST- baclofen 5 mg PO BEDTIME PRN biotin mcg PO cetirizine (Wal-Zyr (cetirizine)) 10 mg PO DAILY PRN hydroxyzine pamoate mg PO PRN methylphenidate HCl (Ritalin) 10 mg PO BID prazosin 1 mg PO BEDTIME sertraline 175 mg PO DAILY Tobacco use date assessed: 02/07/25 Dental Screening Dental Screen Date: 02/07/25 Did you have a dental visit in the last 12 months?: Yes Did you have a dental problem in the last 6 months where you did not have access to dental care?: No Was dental information given to patient?: Patient has dentist HPI HPI Comments History of Present Illness Details 39 y/o F with PVC, SVT, bakers cyst R, p ostpartum hyperthyroidism, IBS, ADD, MDD, GAGE, seasonal allergies Social; 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 , 2 children, 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 Family hx: mom with thyroid dz s/p thyroidectomy Surgery: lumpectomy L breast benign 2016, 3 surgery R knee Health Maintenance Tdap 2021 Flu UTD Mammo 07/2024 @ [facility] rec'd WNL Pap 07/2024 [facility] report requested ADHD Contract signed 02/07/25 Specialists Cards last visit 2021 recommend visit q2 years; now active w/ [facility] Cards Dr Mena every year IMMUNOLOGY SPECIALIST Optho 2023 last exam - needs reading glasses Counselor and med prescriber Tube Bending Machine Operator wellbutrin allergy testing in February Derm appt pending Neuro [place] [facility] [place] of Present Illness - The patient is a 39-year-old female pr esenting with follow-up for ADHD. She was initiated on Ritalin aiming for 10 mg twice daily which has been helpful; taking at 0700 and 1200pm. Feels breakthrough sx around 4-5pm. Denies side effects. - She experiences irritability when redu cing sertraline below 50 mg. - For insomnia and nighttime anxiety pre viously managed with prazosin, did not notice any improvement with or without this. She reports efficacy of non- pharmacological interventions and wishes to discontinue prazosin. - Her headaches have subsided since alte Gen9 exercise practices, suggesting a strong musculoskeletal component, and have negated the need for baclofen. Physical Exam General: Well developed, well nourished, in no acute distress. Appears stated age. Head: Normocephalic, atraumatic. Noted presence of knots at the base of the skull. Neck: Supple, no adenopathy or thyromegaly. Palpable nontender thyroid, trachea midline Lungs: Clear to auscultation bilaterally. No rales, rhonchi or wheeze noted. Good air flow in all carlos. Heart: Regular rate and rhythm. No murmurs, click, rubs or gallops are noted. Extremities: No clubbing, cyanosis nor edema is noted. Neurologic: Gait and station normal. Cranial Nerves 2-12 intact. Motor strength grossly symmetrical and intact. No sensory loss. Balance normal. Psych: Normal eye contact, affect and mood appropriate, and normal interactions. Patient is alert and appropriate to context. Discussion Notes During the visit, I reviewed the patient's current medication regimen for ADHD and depression. We agreed on maintaining Ritalin at 10 mg twice daily with an additional 5 mg as needed later in the day to manage breakthrough symptoms, ensuring administration before 6 PM to avoid disrupting sleep. We discussed the discontinuation of prazosin due to its apparent ineffectiveness and the patient's improvement with therapy. The necessity of ongoing sertraline at 50 mg was acknowledged given the patient's increased irritability on a lower dose. I highlighted that she could gradually attempt a further taper when she feels stable doing so. We agreed to cancel the neurology appointment, presuming the headaches were musculoskeletal in nature, managed through adapted exercise. The patient's endocrinology follow-up is confirmed for February, and I will be keen to review future Wellbutrin results - going for allergy testing today. We confirmed that this follow-up approach and adjustments were appropriate, and she consented to the proposed changes. ADHD contract signed today. Patient is aware they are being prescribed a controlled substance. They were e ducated that this medication does require routine monthly office visits to monitor weight, blood pressure, heart rate and to screen for any signs of abuse or misuse. They were educated that they may be subject to random pill counts and/or U tox screenings. The prescription drug monitoring program we will be monitored at each visit to further screen for signs of abuse or misuse to include filling prescriptions at other physician's offices. The patient should maintain prescription refills of the same local pharmacy and advised the provider of any changes immediately. If at any time there is a concern for abuse or misuse or if there are any signs of side effects such as elevated blood pressure, elevated heart rate or weight loss patient is made aware that this medication will be discontinued. The patient is aware of the above and is willing to proceed. Assessment and Plan 1. Attention-Deficit/Hyperactivity Disor ariana (ADHD) Continue with Ritalin 10 mg twice daily, adding a third 5 mg dose as needed in the late afternoon to manage focus and concentration, ensuring doses are taken before 6 PM. 2. Nighttime Anxiety and Insomnia Discontinue prazosin given the absence of anxiety or sleep disturbances currently and the patient finding sufficient management through therapy. 3. Major Depressive Disorder, Moderate Maintain Sertraline at 50 mg daily, considering a slow taper only with improvement in symptoms. 4. Headache No further intervention necessary as headaches are resolved; cancel neurology appointment. Patient Instructions - Continue taking Ritalin 10 mg in the m orning and at noon, with an extra 5 mg in the late afternoon if needed. - Stop taking prazosin. - Keep taking Sertraline at 50 mg every day. Taper. - No need to attend the neurology appoin tment if headaches stay away. - Keep up with your exercises and therap y. - See endocrinology in February. - Follow up with me in a month or as nelou ded. Consent Patient was informed and verbally consented to the use of an ambient scribe for clinic note documentation during this visit. Total time spent caring for the patient today was 40 minutes. This includes time spent before the visit reviewing the chart, time spent during the visit, and time spent after the visit on documentation, reviewing laboratory results, diagnostic imaging, medications, performing a medically necessary evaluation, counseling on diagnoses, care coordination, ordering appropriate tests, ordering appropriate medications, review of tests performed by other providers, reporting test results with the patient, communication with other healthcare providers. [facility] Medical History (Updated 02/07/25 @ 10:05 by Janelle Schaeffer [facility]) Anxiety and depression Eczema Incontinence PVC (premature ventricular contraction) Sinusitis SVT (supraventricular tachycardia) Surgical History (Updated 12/10/24 @ 11:22 by Angle Bacon MA) H/O right knee surgery History of lumpectomy Family History (Updated 12/10/24 @ 11:26 by Angle Bacon MA) Father HTN (hypertension) High cholesterol Maternal Grandmother Cardiovascular disease Clotting disorder Mother Thyroid disorder Mental health disorder Paternal Grandmother Colon cancer Maternal Grandfather Lymphoma Paternal Grandfather Pancreatic cancer Social History (Updated 12/10/24 @ 11:15 by Angle Bacon MA) Household Members: Spouse and Children Both parents involved: No Caregiver staying overnight: No Housing: House Are you a primary manager critical care unit to a significant other at home: Yes Do you presently have visiting nurse or other home services: No 75 years or older and lives alone: No Alcohol intake: current Alcohol intake frequency: a few times a month Patient Tobacco Use Status: Never used Tobacco e-Cigarette/Vaping Use: Never Used Second Hand Smoke Exposure: No service: No Current occupational status: employed 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 1. Little interest or pleasure in doing things: not at all 2. Feeling down, depressed, or hopeless: not at all 3. Trouble falling or staying asleep, or sleeping too much: not at all 4. Feeling tired or having little energy: several days 5. Poor appetite or overeating: not at all 6. Feeling bad about yourself - or that you are a failure or have let yourself or your family down: not at all 7. Trouble concentrating on things, such as reading the newspaper or watching television: not at all 8. Moving or speaking so slowly that other people could have noticed. Or the opposite - being so fidgety or restless that you have been moving around a lot more than usual: not at all 9. Thoughts that you would be better off or of hurting yourself in some way: not at all Total score: 1 Depression Screening Interpretation: Negative Depression Screening Done: Yes 72705 - PHQ-9 Billing: Yes Source: Developed by Drs. Sridhar Gabriel, Ebony Cruz, Ceferino Lacey and colleagues, with an educational addi from [employer]. Thrive Questionnaire Date Thrive assessed: 02/07/25 I am a: Patient What is your living situation today?: I have a steady place to live Within the past 12 months, did the food you bought not last and you didn't have the money to get more?: Never true Within the past 12 months, did you worry whether your food would run out before you got money to buy more?: Never true Do you have trouble paying for medicines?: No Do you have trouble getting transportation to medical appointments?: No Do you have trouble paying your heating and electricity bill?: No Do you have trouble taking care of your child, family member or friend?: No Do you have trouble with day-to-day activities such as bathing, preparing meals, shopping, managing finances, etc.?: No Are you currently unemployed and looking for a job?: No Are you interested in more education?: No Please select the resources that you would like help with: None Currently or been in a relationship where the following occur: No concerns reported THRIVE Score: 0 GAGE-7 AMB Questionnaire GAGE-7 Date GAGE - 7 assessed: 02/07/25 Feeling nervous, anxious, or on edge: 0 = Not at all Not being able to stop or control worryin = Not at all Worrying too much about different things: 0 = Not at all Trouble relaxin = Not at all Being so restless that it is hard to sit still: 1 = Several days Becoming easily annoyed or irritable: 1 = Several days Feeling afraid as if something awful might happen: 0 = Not at all Total GAGE-7 score (0-4 normal; 5-9 mild; 10-14 moderate; 15-21 severe): 2 Source: Developed by Drs. Sridhar Gabriel, Ceferino Mcnair and colleagues, with an educational addi from [employer]. GAGE-7 Assessment Billing GAGE-7 Assessment Tool: GAGE-7 Assessment 15346 Physical exam (Primary Care) Vital Signs: Last Vital Signs Temp 97.2 F 02/07/25 09:34 Pulse 67 02/07/25 09:34 Resp 12 02/07/25 09:34 BP 118/68 02/07/25 09:34 Pulse Ox 98 02/07/25 09:34 Oxygen Delivery Method Room Air 02/07/25 09:34 BMI result Body Mass Index 25.4 Tobacco/Smoking Status: Tobacco use Status Tobacco use date assessed 02/07/25 02/07/25 09:35 Patient Tobacco Use Status Never used Tobacco 02/07/25 09:35 e-Cigarette/Vaping Use Never Used 02/07/25 09:35 PHQ-9: PHQ-9 Score PHQ-9: Total score 1 02/07/25 09:36 Depression Screening Interpretation: Negative Thrive Assessment: Date of Thrive Assessment Date Thrive assessed 02/07/25 02/07/25 09:36 Currently or been in a relationship where the following occur: No concerns reported Coding Level of Care Code Est Pt Level 5 (06274) Complex EM visit Add On G2211 Diagnoses Attention deficit hyperactivity disorder (ADHD), predominantly inattentive type F90.0 Attention deficit-hyperactivity disorder type: predominantly inattentive Chronic tension-type headache, not intractable G44.229 Headache type: tension-type Intractability: not intractable GAGE (generalized anxiety disorder) F41.1 Mild episode of recurrent major depressive disorder F33.0 Major depression episode severity: mild Additional Codes GAGE-7 Assessment Billing - GAGE-7 Assessment Tool: GAGE-7 Assessment 97567 ([id number]) PHQ-9 - 83162 - PHQ-9 Billing: Yes ([id number]) Assessment & Plan Assessment & Plan (1) ADHD: Comment: Contract signed 02/07/25 Code(s): F90.9 - Attention-deficit hyperactivity disorder, unspecified type Category: Medical Qualifiers: Attention deficit-hyperactivity disorder type: predominantly inattentive Qualified Code(s): F90.0 - Attention-deficit hyperactivity disorder, predominantly inattentive type (2) Chronic headache: Code(s): R51.9 - Headache, unspecified; G89.29 - Other chronic pain Category: Medical Qualifiers: Headache type: tension-type Intractability: not intractable Qualified Code(s): G44.229 - Chronic tension-type headache, not intractable (3) GAGE (generalized anxiety disorder): Code(s): F41.1 - Generalized anxiety disorder Category: Medical (4) MDD (major depressive disorder), recurrent episode: Code(s): F33.9 - Major depressive disorder, recurrent, unspecified Category: Medical Qualifiers: Major depression episode severity: mild Qualified Code(s): F33.0 - Major depressive disorder, recurrent, mild Plan . Medications: New methylphenidate HCl (Ritalin) Partial Fill upon patient request. Take 1 tab daily in the evening for breakthrough sx 5 mg PO DAILY 30 tabs 0RF Refilled methylphenidate HCl (Ritalin) Partial Fill upon patient request. 10 mg PO BID 60 tabs 0RF Discontinued prazosin Discontinued Reason: Doctor's Order 1 mg PO BEDTIME 30 caps 1RF
[2025-02-07 09:34] VITALS: BP 118/68; PULSE 67; RESP 12; TEMP 36.2; O2SAT 98; BMI 25.4
--- OUTSIDE RECORDS SUMMARY | 2025-02-07 10:32 | XMS_ITS | Patient Health Record ---
Author Organization [facility] [employer] Address [address] [place] [id number] Care Team Providers Care Mortgage Branch Manager Name Role Phone ANUPAMA GRANADOS Primary Care Provider [phone] Araceli iBll Unavailable [phone] ALLERGIES Allergen (clinical drug ingredient) Drug/Non Drug [...] Tobacco use: nonsmoker Section Notes: Lives in [place], [place] with and 2 Children and a cat. Enjoys socializing with friends and orange theory. Lives in [place] with and 2 Children and a cat. 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 Enjoys socializing with friends and orange theory. Lives in [place] with and 2 Children and a cat. Enjoys socializing with friends and orange theory. Lives in [place] with and 2 Children and a cat. 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 Enjoys socializing with friends and orange theory. PROBLEMS Problem Type ICD Code Onset Dates Problem Status W/U Status Risk SNOMED Code Notes Problem Mixed hyperlipidemia (E78.2) Active confirmed 816502231 Problem Seasonal allergies (J30.2) Active confirmed 586443649 Problem Anxiety (F41.9) Active confirmed 185417 02 Problem SVT (supraventricular tachycardia) (I47.10) Active confirmed 9015198 Encounters Encounter Location Date Provider Diagnosis [address] [place] [id number] 04/13/2024 Araceli Bill PLAN OF TREATMENT Future [...] Insured Coverage Start Date Coverage End Date [facility] [address] [place] [phone] [id number] GURPREET BUI Self - patient is the insured MEDICAL (GENERAL) HISTORY Medical History History ICD Code Allergies Anxiety Bladder/Kidney Problems Brest Lump Benign Fractures - Right Knee Hyperlipidemia Eczema SVT Chicken Pox as a child Surgical History Surgery Date(Month/Year) Left Breast Biopsy 2014 Echocardiogram - SVT 01/2023 Knee Surgery [place] Teeth Removal 2003
--- OUTSIDE RECORDS SUMMARY | 2025-02-07 10:33 | XMS_ITS | Clinical Summary ---
Author Organization [facility] Address [address] [place] [address] Care Team Providers Care Public Information Coordinator Name Role Phone Rosalio Tesfaye MD Primary Care Provider [phone] Lizbeth Cancino MD Unavailable [phone] Agnes Engle MD Unavailable Unavailable Source Comments [...] change in or delivery plan. Delivery at [facility] as previously planned. No need for further [...] patient's age to complete this topic Insurance [facility] PPO [facility] PPO Care Teams Public Information Coordinator Relationship Specialty Start Date End Date Rosalio Tesfaye MD [address] [place] [phone] PCP - General Maternal and Medicine 10/15/21 Lizbeth Cancino MD [address] [place] [phone] Obstetrics and Gynecology 10/09/21 Agnes Engle MD [address] [place] [id number] Consulting Physician Cardiology 10/15/21
--- OUTSIDE RECORDS SUMMARY | 2025-02-07 10:33 | XMS_ITS | Patient Health Record ---
Author Organization [facility] Address [address] [place] [address] Care Team Providers Care Administrative Coordinator Name Role Phone SULY MULLER Unavailable [phone] MILTONYODIT Rojas Unavailable [phone] ALLERGIES Allergen (clinical drug ingredient) Drug/Non Drug [...] Problem Hypothyroidism, unspecified (E03.9) Active confirmed Hypothyroidism (04558164) Problem Thyrotoxicosis, unspecified without thyrotoxic crisis or storm (E05.90) Active confirmed Thyrotoxic osis (39098753) Problem Insomnia, unspecified (G47.00) Active confirmed Insomnia (463764577) Problem Left knee pain, unspecified chronicity (M25.562) Active confirmed 11664109 Problem Acquired hypothyroidism (E03.9) Active confirmed 898761813 Problem Anxiety (F41.9) Active confirmed Anxiet y (26110935) Problem Insomnia, unspecified type (G47.00) Active confirmed 358707253 Problem Seasonal allergies (J30.2) Active confirmed 693119150 Problem Vitamin D deficiency (E55.9) Active confirmed Vitamin D deficiency (98701013) Problem SVT (supraventricular tachycardia) (I47.1) Active confirmed Supraventricula r tachycardia (2814854) Encounters Encounter Location Date Provider Diagnosis [facility] [address] [facility] [place] [address] 02/20/2024 YODIT ROSE PLAN OF TREATMENT Pending [...] Insured Coverage Start Date Coverage End Date [employer] [id number] [place] [id number] GURPREET MARTI Self - patient is the insured MEDICAL (GENERAL) HISTORY Medical History History ICD Code Hypothyroidism, unspecified type E03.9 SVT (supraventricular tachycardia) I47.1 Seasonal allergies J30.2 Anxiety F41.9 Surgical History Surgery Date(Month/Year) right knee left breast lumpectomy pilonidal cyst
--- OUTSIDE RECORDS SUMMARY | 2025-02-07 10:33 | XMS_ITS | Clinical Summary ---
Author Organization [facility] Address [address] [place] [address] Care Team Providers Care Cellular Equipment Repairer Name Role Phone Unavailable Primary Care Provider Unavailabl e Source Comments PLEASE NOTE, if this patient is a minor, it may be UNLAWFUL to discuss sensitive information that is contained in these records (such as FAMILY PLANNING, MENTAL HEALTH or SUBSTANCE ABUSE) with the minor patient's parent or other person without the patient's specific authorization.[facility] Immunizations Immunization Administration Dates Next Due Moderna COVID-19 Vaccine, [...] Health Maintenance Due Date Last Done Comments Anxiety Screening 1984 Diabetes Screening 1984 HPV Screening 1984 Hepatitis C Screening 1984 Lipid Screening 1984 Pap + HPV 1984 Tobacco Screening 1984 HIV Screening 1999 Relationship Safety Screening/Counseling 1999 Hypertension Screening (#1) 2002 Imm-Hepatitis B (1 of 3 - 19 + 3-dose series) 2003 Cervical Cancer Screening 2005 Pap Smear 2005 Breast Cancer Screening (Mammogram) 2024 Ali-HJVAZ-13 (2023- season) 06/13/202401/30/ 021, 01/02/2021 Imm-Influenza (#1) 2024 08/09/2020, 0 06/28/2019, 09/10/2018, Additional history exists Alcohol and Drug Screen 10/13/2024 Depression Annual Screen 10/13/2024 Imm-DTaP/Tdap/Td (4 - Td or Tdap) 06/28/2029 06/28/2019, 09/14/2012, 10/13/2001 Cervical Ablation/Cold-Knife Conization Discontinued Cervical Cryotherapy Discontinued Colposcopy Discontinued Endometrial Biopsy Discontinued Excision/Leep Discontinued HPV Genotyping Discontinued Vaginal Pap Discontinued Vulvoscopy Discontinued Insurance [facility] INSURANCE Member Subscriber Plan / Payer (Ef fective 2021-Present) Name:Maryellen Daniels Relation to Subscriber:Self Name:Maryellen Daniels Payer ID:[id number] Type:Pratibha Address: [address] [address]
--- OUTSIDE RECORDS SUMMARY | 2025-02-07 10:34 | XMS_ITS ---
Author Organization [facility] Address [address], [place] [id number] Care Team Providers Care Starcher And Tenter Range Feeder Name Role Phone ANUPAMA GRANADOS Primary Care Provider Araceli Bill [phone] REASON FOR VISIT Needs referral Encounters Encounter Location Date Provider Diagnosis [facility] [address] [place], [place] [id number] 10/17/2023 Araceli Bill PLAN OF TREATMENT No Information Progress Notes * THEODORE BUIOB:[birth year] (38 yo F)Acc No.[id number]:10/17/2023 Patient:??MARY BUI :1985?Age:38 Y?Sex:Fe male Phone: Address:[address] [place] [address] [place] [address] * true * Date:??
--- OUTSIDE RECORDS SUMMARY | 2025-02-07 10:34 | XMS_ITS | Clinical Summary ---
Author Organization [facility] Address [address] [place] [address] Care Team Providers Care Nursing Services Manager Name Role Phone Yulia Mix MD Primary Care Provider [phone]- [phone] Allergies Active Allergy Reactions Criticality Noted Date [...] complete this topic Procedures * Due to [place] [employer] law, this organization might not be sharing negative HIV tests. Procedure Name Priority Date/Time Associated Diagnosis Comments PAP SMEAR Routine 10/21/2001 1:48 PM EST from Last 3 Months or Most Recently Relevant to Health Maintenance Results * Due to [place] [employer] law, this organization might not be sharing negative HIV tests. * PAP SMEAR (10/21/2001 1:48 PM EST) PAP SOURCE [facility] (CLIA# [id number]) Comment:None given PAP NUMBER OF SLIDES RECEIVED 1 [facility] (CLIA# [id number]) LMP [facility] (CLIA# [id number]) Comment:10/09/01 PAP CLINICAL HISTORY [facility] (CLIA# [id number]) Comment:Hormone therapy LQPAPENDO [facility] (CLIA# [id number]) Comment:Endocervical cells a re absent. PAP SPECIMEN ADEQUACY [facility] (CLIA# [id number]) Comment:Satisfactory specime n for Cytologic evaluation. INTERPRETATION/RE SULT - PAP [facility] (CLIA# [id number]) Comment: WITHIN NORMAL LIMITS (Please note comment under endocervical component) PAP PATHOLOGY [facility] (CLIA# [id number]) Comment: [address] [address] Screening performed at [facility], [address] [place] [address] 10/21/2001 1:48 PM EST 10/21/2001 1:48 PM EST Blessing Infante MD PATHOLOGY Final Result [facility] (CLIA# [id number]) [address] [place] [phone] from Last 3 Months or Most Recently Relevant to Health Maintenance Insurance [employer] [facility] FFS DIRECT CARE (HMO) Care Teams Nursing Services Manager Relationship Specialty Start Date End Date Yulia Mix MD PCP - General Family Medicine 03/17/17
--- OUTSIDE RECORDS SUMMARY | 2025-02-07 10:34 | XMS_ITS ---
Author Organization [facility] Address [address] [place], [place] [id number] Care Team Providers Care Horticultural Agent Name Role Phone ANUPAMA GRANADOS Primary Care Provider [phone] Araceli Bill [phone] REASON FOR VISIT f/u labs & pap Encounters Encounter Location Date Provider Diagnosis [facility] [address] [place], [place] [id number] 04/13/2024 Araceli Bill PLAN OF TREATMENT No Information Progress Notes * THEODORE BUIOB:03[birth year]14 (39 yo F)Acc No.[id number]:04/13/2024 Progress Notes Patient:??ARIANA MATHEWSFEMIMARY MAGALLANES Provider:??Araceli Bill DNP :1985?Age:39 Y?Sex:Fe male Date:04/13/2024 Phone: Address:[address] [place] [address] [id number] Pcp:ANUPAMA GRANADOS Subjective: * Chief Complaints: * ?1. F/u labs & pap. * Medical History:?? Objective: Assessment: Plan: * Treatment: * Billing Information: * Visit Code:?? * Procedure Codes:?? * Sign off status: Pending * Provider:??Araceli Bill DNP Date:??11/2023
== END 2025-02-07 10:08 | disposition home or self-care (01) ==
LOC: HO.HMCFM 09:30
PROVIDERS: PCP Nurse Practitioner Family; Visit Provider Nurse Practitioner Family
DX: F90.0 Attention-deficit hyperactivity disorder, predominantly inattentive type (principal); F41.1 Generalized anxiety disorder; G44.229 Chronic tension-type headache, not intractable; F33.0 Major depressive disorder, recurrent, mild

== ENCOUNTER → 2025-02-07 09:29 | Outpatient (BNVA) | payer OTHER, SELFPAY | PROVIDERS: PCP Nurse Practitioner Family; Visit Provider Nurse Practitioner Family | DX: F90.0 Attention-deficit hyperactivity disorder, predominantly inattentive type (principal); G44.229 Chronic tension-type headache, not intractable; F41.1 Generalized anxiety disorder; F33.0 Major depressive disorder, recurrent, mild; Z79.899 Other long term (current) drug therapy | CPT/HCPCS: 96127 ==

== ENCOUNTER 2025-02-28 11:03 | Outpatient (AMB) | payer OTHER, SELFPAY ==
--- NOTE | 2025-02-28 11:04 | A.OFFVIS_ITS ---
Vital Signs 02/28/25 11:06 Height 5 ft 5 in Weight 150 lb 2.157 oz BMI 25.0 BP 98/78 Blood Pressure Location Lt brachial Position Sitting Pulse 92 Pulse Source Pulse Oximeter Pulse Oximetry (%) 98 Oxygen Delivery Method Room Air Intake Visit Reasons: Family history of other endocrine, nutritional and Intake Note: New patient present today for Family history of other endocrine, nutritional and metabolic diseases. 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 2019 thyroiditis, per patient had hyperthyroidism ? saw Endo at [facility] , was monitored for a while thyroid 01/04: I reviewed images myself and she has a completely normal thyroid without any nodules Labs from December 2024 showed normal TSH of 1.8, TPO antibody only mildly elevated at 23 Patient currently denies heat or cold intolerance, diarrhea or constipation, hair loss,, anxiety, weight changes, mood changes, low energy, changes in appearance of eyes or vision changes, tremors, increased diaphoresis or dry skin. ? Has history of SVT . Patient denies any difficulty swallowing, pain on swallowing or voice changes or difficulty breathing. Patient denies any history of childhood neck radiation. Denies having ever used lithium, amiodarone . She does use biotin supplements Pregnancies : 3 , 1 miscarriage, not planning for any pregnancies in the future Patient denies any family history of thyroid cancer . Mother : Graves disease had thyroid surgery Never smoker Physical exam General: sitting comfortably in no acute distress HEENT: normocephalic/atraumatic, EOM intact, moist oral mucosa Neck: supple, symmetrical, no thyromegaly , no dorsocervical or supraclavicular fat pads Cardiac: normal heart sounds Pulm: normal breath sounds B/L, no added breath sounds Abd: not distended, no tenderness Extremities: no edema, no signs of myxedema Laboratory Tests 09/24/18 12/13/24 13:05 14:48 TSH 3rd Generation 2.31 TSH 1.80 Thyroid Peroxidase Ab 23 H EXAMINATION: US THYROID 12/30/24 HISTORY: O90.5 - thyroiditis TECHNIQUE: Real-time grayscale ultrasound imaging was performed and images were reviewed. COMPARISON: There are no prior studies for comparison. FINDINGS: SIZE: The right thyroid lobe measures 5.6 x 1.2 x 1.4 cm. The left thyroid lobe measures 5.8 x 1.3 x 1.8 cm. The isthmus measures 2 mm. FLOW: Flow to the gland is normal on the right and slightly increased on the left. ECHOGENICITY: The echotexture of the gland is normal. NODULES: No nodules are identified. US/US thyroid IMPRESSION: Slight increased vascularity of the left thyroid lobe. Otherwise unremarkable thyroid ultrasound. No nodules are identified. [facility] Medical History (Updated 02/28/25 @ 11:34 by Carline Sheldon MD) Parrish's disease Anxiety and depression Eczema Incontinence Sinusitis PVC (premature ventricular contraction) SVT (supraventricular tachycardia) Surgical History History of lumpectomy H/O right knee surgery Family History Father HTN (hypertension) High cholesterol Maternal Grandmother Cardiovascular disease Clotting disorder Mother Thyroid disorder Mental health disorder Paternal Grandmother Colon cancer Maternal Grandfather Lymphoma Paternal Grandfather Pancreatic cancer Social History Household Members: Spouse and Children Both parents involved: No Caregiver staying overnight: No Housing: House Are you a primary career consultant to a significant other at home: Yes Do you presently have visiting nurse or other home services: No 75 years or older and lives alone: No Alcohol intake: current Alcohol intake frequency: a few times a month Patient Tobacco Use Status: Never used Tobacco e-Cigarette/Vaping Use: Never Used Second Hand Smoke Exposure: No service: No Current occupational status: employed 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 Has a history of thyroiditis back in 2019 which resolved. Blood work from December 2024 shows she has mildly positive TPO antibodies. I reviewed her thyroid ultrasound from December 2024 which looks perfect. I explai vaughn to the patient in detail that she does have positive antibodies suggesting underlying autoimmune thyroid disease, however her thyroid is functioning normally in the structure is also normal. I reviewed with her signs and symptoms of both hypo and hyperthyroidism and discussed with her that her PCP can continue to monitor her thyroid function annually. If she develops any signs or symptoms, she can inform her PCP for blood work to be done sooner. If she develops any dysfunction she can be referred back to us but at this time she does not need follow up with a an patient care assistant for her thyroid. Plan is for PCP to monitor thyroid function annually. Plan See above Coding Level of Care Code New Pt Level 3 (98295) Diagnoses 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 Parrish's disease E06.3
[2025-02-28 11:06] VITALS: BP 98/78; PULSE 92; O2SAT 98; BMI 25.0
--- OUTSIDE RECORDS SUMMARY | 2025-02-28 11:51 | XMS_ITS | Clinical Summary ---
Author Organization [facility] Address [address] [place] [address] Care Team Providers Care Digital Research Analyst Name Role Phone Yulia Mix MD Primary Care Provider [phone]- [phone] Allergies Active Allergy Reactions Criticality Noted Date [...] complete this topic Procedures * Due to [place] [employer] law, this organization might not be sharing negative HIV tests. Procedure Name Priority Date/Time Associated Diagnosis Comments PAP SMEAR Routine 10/21/2001 1:48 PM EST from Last 3 Months or Most Recently Relevant to Health Maintenance Results * Due to [place] [employer] law, this organization might not be sharing negative HIV tests. * PAP SMEAR (10/21/2001 1:48 PM EST) PAP SOURCE [facility] (CLIA# [id number]) Comment:None given PAP NUMBER OF SLIDES RECEIVED 1 [facility] (CLIA# [id number]) LMP [facility] (CLIA# [id number]) Comment:10/09/01 PAP CLINICAL HISTORY [facility] (CLIA# [id number]) Comment:Hormone therapy LQPAPENDO [facility] (CLIA# [id number]) Comment:Endocervical cells a re absent. PAP SPECIMEN ADEQUACY [facility] (CLIA# [id number]) Comment:Satisfactory specime n for Cytologic evaluation. INTERPRETATION/RE SULT - PAP [facility] (CLIA# [id number]) Comment: WITHIN NORMAL LIMITS (Please note comment under endocervical component) PAP PATHOLOGY [facility] (CLIA# [id number]) Comment: [address] [address] Screening performed at [facility], [address] [place] [address] 10/21/2001 1:48 PM EST 10/21/2001 1:48 PM EST Blessing Infante MD PATHOLOGY Final Result [facility] (CLIA# [id number]) [address] [place] [phone] from Last 3 Months or Most Recently Relevant to Health Maintenance Insurance [employer] [facility] FFS DIRECT CARE (HMO) Care Teams Digital Research Analyst Relationship Specialty Start Date End Date Yulia Mix MD PCP - General Family Medicine 03/17/17
--- OUTSIDE RECORDS SUMMARY | 2025-02-28 11:51 | XMS_ITS | Patient Health Record ---
Author Organization [facility] Address [address] [place] [address] Care Team Providers Care Tool Operator Name Role Phone SULY MULLER Unavailable [phone] Allergies Allergen (clinical drug ingredient) Drug/Non Drug Allergy documented on EMR Reaction Allergy Type Onset Date Status amoxicillin Amoxicillin rash Drug Allergy Act bessy Wellbutrin rash Drug Allergy Active Reason For Referral No Information Medications Medication SIG (Take, Route, Frequency, Duration) Notes [...] M OUTH EVERY DAY for 90 Active Problems Problem Type SNOMED Code ICD Code Onset Dates Problem Status W/U Status Risk Notes Problem Hypothyroidism (49770124) Hypothyroidism, unspecified (E03.9) Active confirmed Problem Thyrotoxicosis (26142168) Thyrotoxicosis, unspecified without thyrotoxic crisis or storm (E05.90) Active confirmed Problem Insomnia (803981424) Insomnia, unspecified (G47.00) Active confirmed Problem 21565753 Left knee pain, unspecified chronicity (M25.562) Active confirmed Problem 680906501 Acquired hypothyroidism (E03.9) Active confirmed Problem Anxiety (70748739) Anxiety (F41.9) Active confi rmed Problem 209224407 Insomnia, unspecified type (G47.00) Active confirmed Problem 474467088 Seasonal allergies (J30.2) Active confirmed Problem Vitamin D deficiency (E55.9) Active confirmed Problem Supraventricular tachycardia (8360788) SVT (supraventricular tachycardia) (I47.1) Active confirmed Plan Of Treatment Pending Test Test Name Order Date X [...] Insured Coverage Start Date Coverage End Date [facility] [id number] [place] [id number] [phone] [id number] GURPREET MARTI Self - patient is the insured Medical (General) History Medical History History ICD Code Hypothyroidism, unspecified type E03.9 SVT (supraventricular tachycardia) I47.1 Seasonal allergies J30.2 Anxiety F41.9 Surgical History Surgery Date(Month/Year) right knee left breast lumpectomy pilonidal cyst
--- OUTSIDE RECORDS SUMMARY | 2025-02-28 11:51 | XMS_ITS | Clinical Summary ---
Author Organization [facility] Address [address] [place] [address] Care Team Providers Care Spray Gun Repairer Name Role Phone Unavailable Primary Care [...] Smear 2005 Breast Cancer Screening (Mammogram) 2024 Xip-[id number]-30 (2023- season) 06/13/202401/30/ 021, 01/02/2021 Imm-Influenza (#1) 2024 08/09/2020, 0 06/28/2019, 09/10/2018, Additional history exists Alcohol and Drug Screen 10/13/2024 Depression Annual Screen 10/13/2024 Imm-DTaP/Tdap/Td (4 - Td or Tdap) 06/28/2029 06/28/2019, 09/14/2012, 10/13/2001 Cervical Ablation/Cold-Knife Conization Discontinued Cervical Cryotherapy Discontinued Colposcopy Discontinued Endometrial Biopsy Discontinued Excision/Leep Discontinued HPV Genotyping Discontinued Vaginal Pap Discontinued Vulvoscopy Discontinued Insurance [facility] [employer] Member Subscriber Plan / Payer (Ef fective 2021-Present) Name:Maryellen Daniels Relation to Subscriber:Self Name:Maryellen Daniels Payer ID:[id number] Type:Pratibha Address: [address] [address]
--- OUTSIDE RECORDS SUMMARY | 2025-02-28 11:51 | XMS_ITS ---
Author Organization [facility] Address [address] [place] [address] Care Team Providers Care Senior Living Advisor Name Role Phone SULY MULLER Unavailable [phone] YOIDT ROSE Unavailable [phone] Encounters Encounter Location Date Provider Diagnosis [facility] [address] [place] [address] 02/20/2024 YODIT ROSE Plan Of Treatment No Information Progress Notes * GURPREET COWANDOB:0 1985 (39 yo F)Acc No.[id number]:02/20/2024 CPE Patient:?LANEGURPREET WANG Provider:?YODIT ROSE PA-C :1985???Age:38 Y???Sex:Female D ate:02/20/2024 Address:[address] [place], [place] Subjective: * Chief Complaints: * ??? * Medical History:? Objective: * Vitals:? Assessment: Plan: * Treatment: * Billing Information: * Visit Code:? * Procedure Codes:? Care Plan Details* * Electronic signature of SATYA ROSE PA-C on 02/28/2025 at 11:51 AM EDT Sign off status: Pending * Provider:?YODIT ROSE PA-C Date:?02/19 Generated for Kiran hernandez/Alfredo/eTransmitting on:?02/28/2025 11:51 AM EDT
== END 2025-02-28 11:25 | disposition home or self-care (01) ==
LOC: HO.ENCR 11:03
PROVIDERS: PCP Nurse Practitioner Family; Visit Provider Student in an Organized Health Care Education/Training Program
DX: R76.8 Other specified abnormal immunological findings in serum (principal); E06.3 Autoimmune thyroiditis
CPT/HCPCS: 99203

== ENCOUNTER → 2025-02-28 11:03 | Outpatient (BNVA) | payer OTHER, SELFPAY | PROVIDERS: PCP Nurse Practitioner Family; Visit Provider Student in an Organized Health Care Education/Training Program ==

== ENCOUNTER 2025-03-11 14:47 | Outpatient (AMB) | payer OTHER, SELFPAY ==
--- NOTE | 2025-03-11 14:40 | MHC.PC.OV ---
Intake Visit Reasons: 4 week ADHD fu, 5mg ritalin start Allergies No Known Allergies Allergy (Verified 03/11/25 16:00) Medication List - Last Reconciled 03/11/25 by SOREN Howell- baclofen 5 mg PO BEDTIME PRN biotin mcg PO cetirizine (Wal-Zyr (cetirizine)) 10 mg PO DAILY PRN hydroxyzine pamoate mg PO PRN methylphenidate HCl (Ritalin) 10 mg PO BID methylphenidate HCl (Ritalin) 5 mg PO DAILY PRN sertraline 50 mg PO DAILY Tobacco use date assessed: 03/11/25 Dental Screening Dental Screen Date: 03/11/25 Did you have a dental visit in the last 12 months?: Yes Did you have a dental problem in the last 6 months where you did not have access to dental care?: No Was dental information given to patient?: Patient has dentist HPI HPI Comments History of Present Illness Details 39 y/o F with PVC, SVT, bakers cyst R, hyperthyroidism, IBS, ADD, MDD, GAGE, seasonal allergies Social; 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 rec'd WNL Pap 07/2024 [facility] report requested ADHD Contract signed 02/07/25 Specialists Cards last visit 2021 recommend visit q2 years; now active w/ [facility] Cards Dr Mena every year SNOWBLOWER MECHANIC Optho 2023 last exam - needs reading glasses Counselor and med prescriber Pediatric Psychiatrist wellbutrin allergy testing in February 2025 negative. Ok to use wellbutrin Derm appt pending [facility] Endo - cleared from future f/u History of Present Illness - The patient is a 39-year-old female presenting with medication management follow-up and evaluation of a recent SVT episode. - ADHD: Effective medication use, no sleep disruption, using 10mg BID and PRN 5mg before 6pm with + effect, not taking extra dose daily - Depression: Continuation of Sertraline, plans to reduce dosage from 50 mg to 25 mg with goal of d/c - SVT: Recent episode associated with non-use of Ritalin x 2 days, dehydration, and activity, resolved with Cardizem. She is going to fu with Cards Dr Mena. I do not have these records but have requested. - Endo consult: Prominent Thyroid: Monitored, no intervention necessary. Annual thyroid testing no need to fu with endo - Wellbutrin: Allergy ruled out by testing. - No longer getting headaches; agreed to cancel Neuro consult at [facility] Review of Systems - Neurological: Denies headaches. - Cardiovascular: Reports recent SVT episode; resolved with Cardizem intervention. - Gastrointestinal: Denies abdominal pain. - Endocrine: Reports prominent thyroid; asymptomatic. - Allergic/Immunologic: Denies Wellbutrin allergy, confirmed by negative allergy testing. Physical Exam Limited physical exam was conducted Awake alert NAD Speaking in full sentences Engaging, appropriate Skin pink warm and dry Mood and affect appropriate Assessment and Plan 1. Attention-Deficit/Hyperactivity Disorder (ADHD) - Continue Ritalin as prescribed. - Monitor effectiveness and sleep impact. 2. Major Depressive Disorder - Reduce Sertraline to 25 mg; assess symptoms. - Follow up if needed with dose adjustment. 3. Supraventricular Tachycardia (SVT) - Note recent SVT resolution with Cardizem. - Follow up with bus info consultant. 4. Prominent Thyroid - No intervention; monitor annually. 5. Wellbutrin Allergy - Allergy removed from record. RTO 3 months for ADHD fu, sooner PRN Message sent to office to arrange for this Telehealth Attestation Documentation of encounter conducted via telehealth is verified for accuracy. The patient has been explained that this is an interactive (audio/video) telehealth encounter and what that consists of. The patient understands and wishes to proceed. Planbus platform was used. Total time spent caring for the patient today was 22 minutes. This includes time spent before the visit reviewing the chart, time spent during the visit, and time spent after the visit on documentation, reviewing laboratory results, diagnostic imaging, medications, performing a medically necessary evaluation, counseling on diagnoses, care coordination, ordering appropriate tests, ordering appropriate medications, review of tests performed by other providers, reporting test results with the patient, communication with other healthcare providers. [facility] Medical History (Updated 03/11/25 @ 16:07 by Janelle Schaeffer, SMASH FIXER-) Anxiety and depression Eczema Parrish's disease (~02/2025) Incontinence PVC (premature ventricular contraction) Sinusitis SVT (supraventricular tachycardia) Surgical History H/O right knee surgery History of lumpectomy Family History Father HTN (hypertension) High cholesterol Maternal Grandmother Cardiovascular disease Clotting disorder Mother Thyroid disorder Mental health disorder Paternal Grandmother Colon cancer Maternal Grandfather Lymphoma Paternal Grandfather Pancreatic cancer Social History (Updated 03/11/25 @ 14:42 by Neva Garrido MA) Household Members: Spouse and Children Both parents involved: No Caregiver staying overnight: No Housing: House Are you a primary daycare director to a significant other at home: Yes Do you presently have visiting nurse or other home services: No 75 years or older and lives alone: No Alcohol intake: current Alcohol intake frequency: a few times a month Patient Tobacco Use Status: Never used Tobacco e-Cigarette/Vaping Use: Never Used Second Hand Smoke Exposure: No Use of substances other than those prescribed or required for medical reasons: No service: No Current occupational status: employed 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 Sridhar Gabriel, Ebony Cruz, Ceferino Lacey and colleagues, with an educational addi from [employer]. Physical exam (Primary Care) Tobacco/Smoking Status: Tobacco use Status Tobacco use date assessed 03/11/25 03/11/25 14:43 Patient Tobacco Use Status Never used Tobacco 03/11/25 14:43 e-Cigarette/Vaping Use Never Used 03/11/25 14:43 Thrive Assessment: Date of Thrive Assessment Date Thrive assessed 02/07/25 03/11/25 14:43 Telehealth Telehealth Telehealth Platform: [facility] Location of provider rendering services: practice address Location of patient: address on file Patient Identification confirmed using: Name, : Yes Telehealth method: video Patient verbally consented to treatment: Yes Patient verbally consented to billing insurance company: Yes Patient informed of any privacy concerns related to visit: Yes Minutes spent on Phone/Video with Pt.: 9 Coding Level of Care Code Tele Est Pt Level 3 (98149) Complex EM visit Add On G2211 Diagnoses Attention deficit hyperactivity disorder (ADHD), predominantly inattentive type F90.0 Attention deficit-hyperactivity disorder type: predominantly inattentive 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 Chronic tension-type headache, not intractable G44.229 Headache type: tension-type Intractability: not intractable GAGE (generalized anxiety disorder) F41.1 Parrish's disease E06.3 Mild episode of recurrent major depressive disorder F33.0 Major depression episode severity: mild SVT (supraventricular tachycardia) I47.1 Assessment & Plan Assessment & Plan (1) ADHD: Comment: Contract signed 02/07/25 Code(s): F90.9 - Attention-deficit hyperactivity disorder, unspecified type Category: Medical Qualifiers: Attention deficit-hyperactivity disorder type: predominantly inattentive Qualified Code(s): F90.0 - Attention-deficit hyperactivity disorder, predominantly inattentive type (2) Anti-TPO antibodies present: Onset Date: ~02/2025 Comment: [facility] ENDO Consult 39-year-old female coming in today 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 Has a history of thyroiditis back in 2019 which resolved. Blood work from December 2024 shows she has mildly positive TPO antibodies. I reviewed her thyroid ultrasound from December 2024 which looks perfect. I explained to the patient in detail that she does have positive antibodies suggesting underlying autoimmune thyroid disease, however her thyroid is functioning normally in the structure is also normal. I reviewed with her signs and symptoms of both hypo and hyperthyroidism and discussed with her that her PCP can continue to monitor her thyroid function annually. If she develops any signs or symptoms, she can inform her PCP for blood work to be done sooner. If she develops any dysfunction she can be referred back to us but at this time she does not need follow up with a an coffee sommelier for her thyroid. Plan is for PCP to monitor thyroid function annually. 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 Has a history of thyroiditis back in 2019 which resolved. Blood work from December 2024 shows she has mildly positive TPO antibodies. I reviewed her thyroid ultrasound from December 2024 which looks perfect. I explained to the patient in detail that she does have positive antibodies suggesting underlying autoimmune thyroid disease, however her thyroid is functioning normally in the structure is also normal. I reviewed with her signs and symptoms of both hypo and hyperthyroidism and discussed with her that her PCP can continue to monitor her thyroid function annually. If she develops any signs or symptoms, she can inform her PCP for blood work to be done sooner. If she develops any dysfunction she can be referred back to us but at this time she does not need follow up with a an coffee sommelier for her thyroid. Plan is for PCP to monitor thyroid function annually. Code(s): E06.3 - Autoimmune thyroiditis Category: Medical (6) MDD (major depressive disorder), recurrent episode: Code(s): F33.9 - Major depressive disorder, recurrent, unspecified Category: Medical Qualifiers: Major depression episode severity: mild Qualified Code(s): F33.0 - Major depressive disorder, recurrent, mild (7) SVT (supraventricular tachycardia): Comment: WITH RECURRENCE 02/2025 [facility] [place] GIVEN X1 Code(s): I47.1 - Supraventricular tachycardia Category: Medical Plan . Medications: Changed From methylphenidate HCl (Ritalin) Partial Fill upon patient request. Take 1 tab daily in the evening for breakthrough sx 5 mg PO DAILY PRN To Ritalin (methylphenidate HCl) Partial Fill upon patient request. Take 1 tab daily in the evening for breakthrough sx 5 mg PO DAILY PRN 30 tabs 0RF BREAKTHROUGH ADHD SX NS Refilled methylphenidate HCl (Ritalin) Partial Fill upon patient request. 10 mg PO BID 60 tabs 0RF
== END 2025-03-11 16:08 | disposition home or self-care (01) ==
LOC: HO.HMCFM 14:47
PROVIDERS: PCP Nurse Practitioner Family; Visit Provider Nurse Practitioner Family
DX: F90.0 Attention-deficit hyperactivity disorder, predominantly inattentive type (principal); R76.8 Other specified abnormal immunological findings in serum; G44.229 Chronic tension-type headache, not intractable; F41.1 Generalized anxiety disorder; E06.3 Autoimmune thyroiditis; F33.0 Major depressive disorder, recurrent, mild; I47.10 Supraventricular tachycardia, unspecified

== ENCOUNTER → 2025-03-11 14:47 | Outpatient (BNVA) | payer OTHER, SELFPAY | PROVIDERS: PCP Nurse Practitioner Family; Visit Provider Nurse Practitioner Family ==

== ENCOUNTER 2025-07-13 09:42 | Outpatient (AMB) | payer OTHER, SELFPAY ==
--- OUTSIDE RECORDS SUMMARY | 2024-02-20 05:30 | XMS_ITS ---
Author Organization [facility] [address] Address [address] [place] [address] Care Team Providers Care Bank Secrecy Act Officer Name Role Phone SULY MULLER Unavailable [phone] YODIT ROSE Unavailable [phone] Encounters Encounter Location Date Provider Diagnosis [facility] [address] [place] [address] 02/20/2024 YODIT ROSE Plan Of Treatment No Information Progress Notes * GURPREET COWANDOB:0 1985 (40 yo F)Acc No.[id number]:02/20/2024 CPE Patient: GURPREET DOWD Provider: Charlotte ROSE PA-C :1985 A ge:38 Y S ex:Female Date:02/20/2024 Address:[address] [place], [id number] Subjective: * Chief Complaints: * * Medical History: Objective: * Vitals: Assessment: Plan: * Treatment: * Images: Billing Information: * Visit Code: * Procedure Codes: Care Plan Details* * Electronic signature of SATYA ROSE PA-C on 07/13/2025 at 10:35 AM EDT Sign off status: Pending * Provider: Charlotte ROSE PA-C Date: 0 02/20/2024 Generated for Keilai ng/Fajulian/eTransmitting on: 1 10:35 AM EDT
--- NOTE | 2025-07-13 09:45 | A.OFFPC_ITS ---
Vital Signs 07/13/25 09:52 Height 5 ft 5 in Weight 143 lb 2 oz BMI 23.8 BP 102/67 Blood Pressure Location Lt brachial Position Sitting Respiration 12 Pulse 68 Pulse Source Pulse Oximeter Temp 97.8 F Temp Source Oral Pulse Oximetry (%) 99 Oxygen Delivery Method Room Air Intake Visit Reasons: aDHD fu in 3 months Intake Note: 3 Months follow up ADHD. Patient wants to discuss about adding wellbutyrin. Patient c/o behind right knee cyst. Toll Ticket Clerk Required: No Allergies No Known Allergies Allergy (Verified 07/13/25 09:46) Medication List - Last Reconciled 07/13/25 by Janelle Schaeffer, MAINTENANCE SERVICES DISPATCHER-BC baclofen 5 mg PO BEDTIME PRN biotin mcg PO cetirizine (Wal-Zyr (cetirizine)) 10 mg PO DAILY PRN hydroxyzine pamoate mg PO PRN methylphenidate HCl (Ritalin) 10 mg PO BID Ritalin (methylphenidate HCl) 5 mg PO DAILY PRN NS sertraline 50 mg PO DAILY Tobacco use date assessed: 07/13/25 Dental Screening Dental Screen Date: 07/13/25 Did you have a dental visit in the last 12 months?: Yes Did you have a dental problem in the last 6 months where you did not have access to dental care?: No Was dental information given to patient?: Patient has dentist HPI HPI Comments History of Present Illness Details 39 y/o F with PVC, SVT, bakers cyst R, p ostpartum hyperthyroidism, IBS, ADD, MDD, GAGE, seasonal allergies Social; 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 , 2 children, 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 Ok to use wellbutrin Derm C Endo - cleared from future f/u Here for routine fu: ADHD well controlled does not always need breakthrough dose Sleeping and appetite good Tried to reduce sertraline to 25mg but became irritable Back on 50mg - ok w/ staying this. SVT no episodes, working on getting into new cards practice Got flu shot last week Would like to start wellbutrin for SAD. Taking Vit D and this helps greatly R bakers cyst bothering her - running 1/2 marathon [place] this weekend Needs updated referral to Derm; [place] [facility] [place] not work w/ insurance Physical Exam Awake alert NAD RRR LS CTAB No edema BLE Engaging, appropriate Skin pink warm and dry Mood and affect appropriate Assessment and Plan 1. Attention-Deficit/Hyperactivity Disor ariana (ADHD) - Continue Ritalin as prescribed. - Refill sent 2. Major Depressive Disorder - cont Sertraline to 50 mg; assess sympt oms. 3. Supraventricular Tachycardia (SVT) - Note recent SVT resolution with Sharif arias. - Follow up with electric tape slitter. 4. SAD. Starte wellbutrin 150mg QD. take in am. if irritability consider SR at lower dosing cont Vit d. goal to stop wellbutrin after 90 days. 5. Bakers cyst - fu with ortho [place] 6. [facility] in [place] referral placed RTO 3 months for CPE/ADHD fu, sooner PRN Total time spent caring for the patient today was 35 minutes. This includes time spent before the visit reviewing the chart, time spent during the visit, and time spent after the visit on documentation, reviewing laboratory results, diagnostic imaging, medications, performing a medically necessary evaluation, counseling on diagnoses, care coordination, ordering appropriate tests, ordering appropriate medications, review of tests performed by other providers, reporting test results with the patient, communication with other healthcare providers. [facility] Medical History (Updated 07/13/25 @ 10:11 by SOREN Howell-) Anxiety and depression Eczema Parrish's disease (~02/2025) Incontinence PVC (premature ventricular contraction) Sinusitis SVT (supraventricular tachycardia) Surgical History H/O right knee surgery History of lumpectomy Family History Father HTN (hypertension) High cholesterol Maternal Grandmother Cardiovascular disease Clotting disorder Mother Thyroid disorder Mental health disorder Paternal Grandmother Colon cancer Maternal Grandfather Lymphoma Paternal Grandfather Pancreatic cancer Social History (Updated 03/11/25 @ 14:42 by Neva Garrido MA) Household Members: Spouse and Children Both parents involved: No Caregiver staying overnight: No Housing: House Are you a primary lawn caretaker to a significant other at home: Yes Do you presently have visiting nurse or other home services: No 75 years or older and lives alone: No Alcohol intake: current Alcohol intake frequency: a few times a month Patient Tobacco Use Status: Never used Tobacco e-Cigarette/Vaping Use: Never Used Second Hand Smoke Exposure: No service: No Current occupational status: employed 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 1. Little interest or pleasure in doing things: not at all 2. Feeling down, depressed, or hopeless: not at all 3. Trouble falling or staying asleep, or sleeping too much: not at all 4. Feeling tired or having little energy: not at all 5. Poor appetite or overeating: not at all 6. Feeling bad about yourself - or that you are a failure or have let yourself or your family down: not at all 7. Trouble concentrating on things, such as reading the newspaper or watching television: not at all 8. Moving or speaking so slowly that other people could have noticed. Or the opposite - being so fidgety or restless that you have been moving around a lot more than usual: not at all 9. Thoughts that you would be better off or of hurting yourself in some way: not at all Total score: 0 Depression Screening Interpretation: Negative Depression Screening Done: Yes 13449 - PHQ-9 Billing: Yes Source: Developed by Drs. Sridhar Gabriel, Ebony Cruz, Ceferino Lacey and colleagues, with an educational addi from [employer]. Thrive Questionnaire Date Thrive assessed: 12/03/24 I am a: Patient What is your living situation today?: I have a steady place to live Within the past 12 months, did the food you bought not last and you didn't have the money to get more?: Never true Within the past 12 months, did you worry whether your food would run out before you got money to buy more?: Never true Do you have trouble paying for medicines?: No Do you have trouble getting transportation to medical appointments?: No Do you have trouble paying your heating and electricity bill?: No Do you have trouble taking care of your child, family member or friend?: No Do you have trouble with day-to-day activities such as bathing, preparing meals, shopping, managing finances, etc.?: No Are you currently unemployed and looking for a job?: No Are you interested in more education?: No Please select the resources that you would like help with: None Currently or been in a relationship where the following occur: No concerns reported THRIVE Score: 0 GAGE-7 AMB Questionnaire GAGE-7 Date GAGE - 7 assessed: 07/13/25 Feeling nervous, anxious, or on edge: 0 = Not at all Not being able to stop or control worryin = Not at all Worrying too much about different things: 0 = Not at all Trouble relaxin = Not at all Being so restless that it is hard to sit still: 0 = Not at all Becoming easily annoyed or irritable: 0 = Not at all Feeling afraid as if something awful might happen: 0 = Not at all Total GAGE-7 score (0-4 normal; 5-9 mild; 10-14 moderate; 15-21 severe): 0 Source: Developed by Drs. Sridhar Gabriel, Ebony Cruz, Ceferino Lacey and colleagues, with an educational addi from [employer]. GAGE-7 Assessment Billing GAGE-7 Assessment Tool: GAGE-7 Assessment 90699 Physical exam (Primary Care) Tobacco/Smoking Status: Tobacco use Status Tobacco use date assessed 07/13/25 07/13/25 09:49 Patient Tobacco Use Status Never used Tobacco 07/13/25 09:45 e-Cigarette/Vaping Use Never Used 07/13/25 09:45 PHQ-9: PHQ-9 Score PHQ-9: Total score 0 07/13/25 09:49 Depression Screening Interpretation: Negative Thrive Assessment: Date of Thrive Assessment Date Thrive assessed 12/03/24 07/13/25 09:45 Currently or been in a relationship where the following occur: No concerns reported Coding Level of Care Code Est Pt Level 4 (95011) Complex EM visit Add On G2211 Diagnoses Attention deficit hyperactivity disorder (ADHD), predominantly inattentive type F90.0 Attention deficit-hyperactivity disorder type: predominantly inattentive GAGE (generalized anxiety disorder) F41.1 Mild episode of recurrent major depressive disorder F33.0 Major depression episode severity: mild Screening for skin cancer Z12.83 Synovial cyst of popliteal space [Gamez], right knee M71.21 SVT (supraventricular tachycardia) I47.1 Additional Codes GAGE-7 Assessment Billing - GAGE-7 Assessment Tool: GAGE-7 Assessment 14983 ([id number]) PHQ-9 - 77407 - PHQ-9 Billing: Yes ([id number]) Assessment & Plan Assessment & Plan (1) ADHD: Comment: Contract signed 02/07/25 Code(s): F90.9 - Attention-deficit hyperactivity disorder, unspecified type Category: Medical Qualifiers: Attention deficit-hyperactivity disorder type: predominantly inattentive Qualified Code(s): F90.0 - Attention-deficit hyperactivity disorder, predominantly inattentive type (2) GAGE (generalized anxiety disorder): Code(s): F41.1 - Generalized anxiety disorder Category: Medical (3) MDD (major depressive disorder), recurrent episode: Code(s): F33.9 - Major depressive disorder, recurrent, unspecified Category: Medical Qualifiers: Major depression episode severity: mild Qualified Code(s): F33.0 - Major depressive disorder, recurrent, mild (4) Screening for skin cancer: Code(s): Z12.83 - Encounter for screening for malignant neoplasm of skin Category: Medical (5) Synovial cyst of popliteal space [Gamez], right knee: Code(s): M71.21 - Synovial cyst of popliteal space [Gamez], right knee Category: Medical (6) SVT (supraventricular tachycardia): Comment: WITH RECURRENCE 02/2025 [facility] [place] GIVEN X1 Code(s): I47.1 - Supraventricular tachycardia Category: Medical Plan , Orders: Orders Complete Blood Count no Diff 11/14/25 Z00.00 - Encounter for general adult medical examination without abnormal findings Lipid Panel 11/14/25 Z00.00 - Encounter for general adult medical examination without abnormal findings Microalbumin, Random (w Creat) 11/14/25 Z00.00 - Encounter for general adult medical examination without abnormal findings Vitamin D 25-OH Total 11/14/25 Z00.00 - Encounter for general adult medical examination without abnormal findings Comprehensive Met. Panel 11/14/25 Z00.00 - Encounter for general adult medical examination without abnormal findings Hemoglobin A1c 11/14/25 Z00.00 - Encounter for general adult medical examination without abnormal findings TSH reflex Free T4 11/14/25 Z00.00 - Encounter for general adult medical exami nation without abnormal findings Vitamin B12 and Folate 11/14/25 Z00.00 - Encounter for general adult medical examination without abnormal findings Referrals Dermatology Referral Z12.83 - Encounter for screening for malignant neoplasm of skin Medications: New cholecalciferol (vitamin D3) 25 mcg PO DAILY bupropion HCl XL (Wellbutrin XL) 150 mg PO QAM 90 tabs 0RF Refilled Ritalin (methylphenidate HCl) Partial Fill upon patient request. Take 1 tab daily in the evening for breakthrough sx 5 mg PO DAILY PRN 30 tabs 0RF BREAKTHROUGH ADHD SX NS methylphenidate HCl (Ritalin) Partial Fill upon patient request. 10 mg PO BID 60 tabs 0RF
[2025-07-13 09:52] VITALS: BP 102/67; PULSE 68; RESP 12; TEMP 36.6; O2SAT 99; BMI 23.8
--- OUTSIDE RECORDS SUMMARY | 2025-07-13 10:36 | XMS_ITS | Clinical Summary ---
Author Organization [facility] Address [address] [place] [address] Care Team Providers Care Action Installer Name Role Phone Unavailable Primary Care Provider [...] Cervical Cancer Screening 2005 Pap Smear 2005 Imm-HPV (3 - 3-dose series) 06/15/200803/13, 01/11/2008, 10/19/2007 Breast Cancer Screening (Mammogram) 2024 Alcohol and Drug Screen 10/13/2024 Depression Annual Screen 10/13/2024 Exp-[id number]-[id number] ( season) 2025 021, 01/02/2021 Imm-Influenza (#1) 2025 08/09/2020, 0 06/28/2019, 09/10/2018, Additional history exists Imm-DTaP/Tdap/Td (4 - Td or Tdap) 06/28/2029 06/28/2019, 09/14/2012, 10/13/2001 Cervical Ablation/Cold-Knife Conization Discontinued Cervical Cryotherapy Discontinued Colposcopy Discontinued Endometrial Biopsy Discontinued Excision/Leep Discontinued HPV Genotyping Discontinued Vaginal Pap Discontinued Vulvoscopy Discontinued Insurance [facility]
--- OUTSIDE RECORDS SUMMARY | 2025-07-13 10:36 | XMS_ITS | Clinical Summary ---
Author Organization [facility] Address [address] [place] [address] Care Team Providers Care Bilingual Operator Name Role Phone Rosalio Tesfaye MD Primary Care Provider [phone] Lizbeth Cancino MD Unavailable [phone] Agnes Engle MD Unavailable Unavailable Source Comments [...] so, obtain the minor's consent prior to disclosure.[facility] Allergies Active Allergy Reactions Criticality Noted [...] change in or delivery plan. Delivery at [facility] as previously planned. No need for [...] HIV SCREENING 1997 COVID-19 Vaccine ( season) 2025 01/30/2021, 01/02/2021 INFLUENZA (#1) 2025 NIRSEVIMAB VACCINES UNDER 8 MONTHS Aged Out No longer eligible b ased on patient's age to complete this topic Insurance [facility] PPO [facility] PPO Care Teams Bilingual Operator Relationship Specialty Start Date End Date Rosalio Tesfaye MD [address] [place] [id number] PCP - General Maternal and Medicine 10/15/21 Lizbeth Cancino MD [address] [place] [address] Obstetrics and Gynecology 10/09/21 Agnes Engle MD [address] [place] [address] Consulting Physician Cardiology 10/15/21
--- OUTSIDE RECORDS SUMMARY | 2025-07-13 10:36 | XMS_ITS ---
Author Name [facility] Organization Unknown History of Medication Use Medication Directions Dispensed Refills Start Date End Date Stat us cetirizine (ZYRTEC) 10 MG tablet Take 10 mg by mouth daily active sertraline (ZOLOFT) 25 MG tablet Take 25 mg by mouth daily active Allergies Allergen Reaction Severity Comment Documented Date Source Statu s BUPROPION HCL RASH Mild 10/15/2021 [facility] active AMOXICILLIN HIVES [facility] SEASONAL [facility] Problems Problem Status Onset Date Problem Type Date of Resoluti on Source Normal cardiac exam active 2021-10-15 ProblemAct [facility] Encounters Encounter Type Encounter Reason Primary Diagnosis Location Date Ambulatory [facility] 03/24/2022 Care Team Organization Name Specialty Phone Email Start Date End Da te [facility] NO PCP Primary Care 02/25/2024 [facility] Rosalio Tesfaye Primary Care 03/31/2022
--- OUTSIDE RECORDS SUMMARY | 2025-07-13 10:36 | XMS_ITS | Clinical Summary ---
Author Organization [facility] Address [address] [place] [address] Care Team Providers Care Cab Starter Name Role Phone Yulia Mix MD Primary Care Provider [phone] Allergies Active Allergy Reactions Criticality Noted Date [...] per hour 2000 mL 7 Active Immunizations Immunization Administration Dates Next Due DTP 01/22/1989 DTaP 09/15/1985, 5,1984,05/19 HIB (PRP-T) 03/23/1986 Hep B (pedi) 08/20/1996,03/17/1996,02/13/1996 MMR 02/13/1996,06/23/1985 Meningococcal MPSV4 (Menomune) 03/24/2002 OPV, Trivalent (Admin Before 01/12/2016) 0 01/22/1989,09/15/1985,1984,05/19 PPD/TST (Tuberculin Skin Test) 03/24/2002,1999 Td (adult), [...] 75 03/17/2017 5:03 PM EDT Temperature 37.2 C (98.9 F) 03/17/2017 5:03 PM EDT Respiratory Rate 16 03/17/2017 2:36 PM EDT [...] Mammogram/Breast Imaging 2024 COVID-19 Vaccine ( season) 2025 Influenza (#1) 2025 Zoster (Shingrix) (1 of 2) 2034 Hib Completed 03/23/1986 Hep B Completed 08/20/1996, 02/1996, 02/13/1996 Meningococcal ACWY Aged Out 03/24/2002 No longer eligible based on patient's age to complete this topic HPV Vaccine (No Doses Required) Completed Hep A Aged Out No longer eligi ble based on patient's age to complete this topic Pneumococcal Aged Out No longer eligi ble based on patient's age to complete this topic Procedures * Due to [place] [employer] law, this organization might not be sharing negative HIV tests. Procedure Name Priority Date/Time Associated Diagnosis Comments PAP SMEAR Routine 10/21/2001 1:48 PM EST from Last 3 Months or Most Recently Relevant to Health Maintenance Results * Due to [place] [employer] law, this organization might not be sharing negative HIV tests. * PAP SMEAR (10/21/2001 1:48 PM EST) PAP SOURCE [facility] (CLIA# [id number]) Comment:None given PAP NUMBER OF SLIDES RECEIVED 1 [facility] (CLIA# [id number]) LMP [facility] (CLIA# [id number]) Comment:10/09/01 PAP CLINICAL HISTORY [facility] (CLIA# [id number]) Comment:Hormone therapy LQPAPENDO [facility] (CLIA# [id number]) Comment:Endocervical cells a re absent. PAP SPECIMEN ADEQUACY [facility] (CLIA# [id number]) Comment:Satisfactory specime n for Cytologic evaluation. INTERPRETATION/RE SULT - PAP [facility] (CLIA# [id number]) Comment: WITHIN NORMAL LIMITS (Please note comment under endocervical component) PAP PATHOLOGY GROUP [facility] (CLIA# [id number]) Comment: [address] [address] Screening performed at [facility], [address] [place] [address] 10/21/2001 1:48 PM EST 10/21/2001 1:48 PM EST Blessing Infante MD PATHOLOGY Final Result [facility] (CLIA# [id number]) [address] [place] [address] from Last 3 Months or Most Recently Relevant to Health Maintenance Insurance [employer] [facility] [employer] DIRECT CARE (HMO) Care Teams Cab Starter Relationship Specialty Start Date End Date Yulia Mix MD PCP - General Family Medicine 03/17/17
--- OUTSIDE RECORDS SUMMARY | 2025-07-13 10:36 | XMS_ITS | Patient Health Record ---
Author Organization [facility] [address] Address [address] [place] [address] Care Team Providers Care Simonizer Name Role Phone SULY MULLER Unavailable [phone] Allergies Allergen (clinical drug ingredient) Drug/Non Drug Allergy documented on EMR Reaction Allergy Type Onset Date Status amoxicillin Amoxicillin rash Drug Allergy Act bessy Wellbutrin rash Drug Allergy Active Reason For Referral No Information Medications Medication SIG (Take, Route, Frequency, Duration) Notes Start Date End Date Status Atorvastatin Calcium 20 MG 1 tablet Oral ly Once a day; Duration: 90 days 03/11/2023 Active Biotin Active hydrOXYzine Pamoate 25 MG TAKE 1 CAPSULE BY MOUTH EVERY DAY AT BEDTIME NEEDED; Duration: 90 Active ZyrTEC Allergy Activ e Sertraline HCl 100 MG TAKE 1 TABLET BY M OUTH EVERY DAY; Duration: 90 Active Problems Problem Type SNOMED Code ICD Code Onset Dates Problem Status W/U Status Risk Notes Problem Hypothyroidism (28114603) Hypothyroidism, unspecified (E03.9) Active confirmed Problem Thyrotoxicosis (27147584) Thyrotoxicosis, unspecified without thyrotoxic crisis or storm (E05.90) Active confirmed Problem Insomnia (131411088) Insomnia, unspecified (G47.00) Active confirmed Problem Pain of left knee region (finding) (343095555938436) Left knee pain, unspecified chronicity (M25.562) Active confirmed Problem Acquired hypothyroidism (975760622) Acquired hypothyroidism (E03.9) Active confirmed Problem Anxiety (83301618) Anxiety (F41.9) Active confi rmed Problem Insomnia (361260901) Insomnia, unspecified type (G47.00) Active confirmed Problem Seasonal allergy (533999892) Seasonal allergies (J30.2) Active confirmed Problem Vitamin D deficiency (47359221) Vitamin D deficiency (E55.9) Active confirmed Problem Supraventricular tachycardia (4134548) SVT (supraventricular tachycardia) (I47.1) Active confirmed Plan [...] Insured Coverage Start Date Coverage End Date [employer] [id number] [place] [address] [phone] [id number] GURPREET MARTI Self - patient is the insured Medical (General) History Medical History History ICD Code Hypothyroidism, unspecified type E03.9 SVT (supraventricular tachycardia) I47.1 Seasonal allergies J30.2 Anxiety F41.9 Surgical History Surgery Date(Month/Year) right knee left breast lumpectomy pilonidal cyst
== END 2025-07-13 10:11 | disposition home or self-care (01) ==
LOC: HO.HMCFM 09:43
PROVIDERS: PCP Nurse Practitioner Family; Visit Provider Nurse Practitioner Family
DX: F90.0 Attention-deficit hyperactivity disorder, predominantly inattentive type (principal); F41.1 Generalized anxiety disorder; F33.0 Major depressive disorder, recurrent, mild; Z12.83 Encounter for screening for malignant neoplasm of skin; M71.21 Synovial cyst of popliteal space [Baker], right knee; I47.10 Supraventricular tachycardia, unspecified

== ENCOUNTER → 2025-07-13 09:42 | Outpatient (BNVA) | payer OTHER, SELFPAY | PROVIDERS: PCP Nurse Practitioner Family; Visit Provider Nurse Practitioner Family | DX: F33.0 Major depressive disorder, recurrent, mild (principal); I47.10 Supraventricular tachycardia, unspecified; F90.0 Attention-deficit hyperactivity disorder, predominantly inattentive type; F41.1 Generalized anxiety disorder; M71.21 Synovial cyst of popliteal space [Baker], right knee; Z23 Encounter for immunization | CPT/HCPCS: 96127 ==

== ENCOUNTER 2025-09-22 11:34 | Outpatient (AMB) | payer OTHER, SELFPAY ==
--- NOTE | 2025-09-22 11:47 | A.OFFPC_ITS ---
Vital Signs 3 09/22/25 11:49 Height 5 ft 5 in Weight 147 lb 8 oz BMI 24.5 BP 122/84 Blood Pressure Location Lt brachial Position Sitting Respiration 14 Pulse 81 Pulse Source Pulse Oximeter Temp 99.1 F Temp Source Oral Pulse Oximetry (%) 98 Oxygen Delivery Method Room Air Intake Visit Reasons: ED f/u from [facility] Intake Note: Emergency room follow up Allergies No Known Allergies Allergy (Verified 09/22/25 12:03) Medication List - Last Reconciled 09/22/25 by Janelle Schaeffer, CAD DESIGNER-BC baclofen 5 mg PO BEDTIME PRN biotin mcg PO bupropion HCl XL (Wellbutrin XL) 150 mg PO QAM cetirizine (Wal-Zyr (cetirizine)) 10 mg PO DAILY PRN cholecalciferol (vitamin D3) 25 mcg PO DAILY hydroxyzine pamoate mg PO PRN methylphenidate HCl (Ritalin) 10 mg PO BID Ritalin (methylphenidate HCl) 5 mg PO DAILY PRN NS sertraline 50 mg PO DAILY Tobacco use date assessed: 07/13/25 Dental Screening Dental Screen Date: 07/13/25 HPI HPI Comments 2 History of Present Illness0 Details 40 y/o F with PVC, SVT, bakers cyst R, p ostpartum hyperthyroidism, IBS, ADD, MDD, GAGE, seasonal allergies Social; 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 , 2 children, 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 Family hx: mom with thyroid dz s/p thyroidectomy, Mom with PE & DVT Facor V lieden Surgery: lumpectomy L breast benign 2016, 3 surgery R knee Health Maintenance Tdap 2021 Flu UTD 07/05/25 Mammo 08/2025 @ [facility] rec'd WNL Pap 07/2024 [facility] report requested ADHD Contract signed 02/07/25 Specialists Cards last visit 2021 recommend visit q2 years; now active w/ [facility] Cards Dr Mena every year, Dr Usama Hall 09/2025 echo 10/[address] Dior LUNG GUN OPERATOR Optho 2023 last exam - needs reading glasses Counselor and med prescriber Airport Manager wellbutrin allergy testing in February 2025 negative. Ok to use wellbutrin Derm Stratum 08/2025 annual fu [facility] - cleared from future f/u History of Present Illness The patient is a 40-year-old female presenting for a hospital discharge follow- up after a syncopal event. Syncope: - The patient was seen in the emergency department on September 12 for a syncopal event that occurred at work. - The patient believes she was unconscio us for approximately five minutes. - She reports hitting her head during th e episode but denies symptoms of a concussion. - A headache experienced in the hospital resolved with caffeine. - The event was not preceded by fasting, as she had eaten breakfast, and there was no specific emotional trigger. - There was significant stress in the [facility] of August due to her parents' medical emergencies. - She has a remote history of a similar event at age 10 of unknown etiology. - In the emergency department, her labs and EKG were normal; no head imaging was done. - She has had no further episodes of syn cope or near-syncope since September 12. Atrioventricular abelardo reentrant tachycardia: - The patient has a known history of atr ioventricular abelardo reentrant tachycardia, which is managed with a PRN beta-juan josé. - She has seen cardiology and is referre d to the electrophysiology (EP) lab for further evaluation, with an appointment pending along w/ echo. Family history of thrombophilia: - The patient's mother was recently diag nosed with a pulmonary embolism, deep vein thrombosis (DVT), and Factor V Leiden. - There is an extended family history of DVT, including a maternal aunt and a maternal uncle. - Her maternal grandmother was on warfar in, though the specific indication is unknown. Past Medical History - Atrioventricular abelardo reentrant tachy cardia, managed with PRN beta-juan josé. - History of concussion as a child. - Syncopal episode at age 10. Review of Systems - Constitutional: Denies feeling faint o r near-faint since the event on September 12. - Neurological: Reports a history of one syncopal episode at work; a headache experienced in the hospital resolved with caffeine. - Cardiovascular: Denies chest pain. - Respiratory: Denies breathing problems . - Eyes: Denies visual changes or disturb ances. - Gastrointestinal: Denies nausea and vo miting. - Genitourinary: Denies urinary incontin ence during the syncopal episode. Physical Exam General: Well developed, well nourished, in no acute distress. Appears stated age. Head: Normocephalic, atraumatic. Eyes: Pupils are equal, round and reactive to light and accommodation. Conjunctivae are clear. Lungs: Clear to auscultation bilaterally. No rales, rhonchi or wheeze noted. Good air flow in all carlos. Heart: Regular rate and rhythm. No murmurs, click, rubs or gallops are noted. Neuro: Nonfocal Psych: Mood and affect appropriate. Results - Labs: CBC and CMP from the emergency d epartment visit on September 12 were normal. - Tests and diagnostics: EKG performed i n the emergency department was normal. Medical Decision Making The patient is a 40-year-old female presenting for follow-up of a syncopal episode. During her emergency department evaluation, no arrhythmia was detected, and her presentation was not suggestive of a seizure, given the lack of urinary incontinence or post-ictal symptoms. The leading hypothesis for the event is a vasovagal response to significant recent life stressors, including her parents' hospitalizations. Given her history of AVNRT, she has been appropriately referred to cardiology and is pending an EP lab evaluation. Given the recent diagnosis of Factor V Leiden in her mother and a broader family history of thromboembolic events, testing the patient for Factor V Leiden is prudent. If the test is positive, the planned intervention would be daily low- dose aspirin, as starting aspirin without a clear indication can introduce risks such as gastrointestinal bleeding. If negative, no further action is needed at this time. Plan 1. Syncope - The patient was evaluated in the emerg ency department where labs and EKG were normal. - An arrhythmia was not detected during the event, and seizure activity was deemed unlikely due to the absence of post-ictal signs or urinary incontinence. - It is suspected the episode was a stre ss response. - Follow up with Dr. Lara in the EP l ab is pending to evaluate for possible ablation. 2. Atrioventricular Abelardo Reentrant Tach ycardia - The patient has been seen by cardiolog y and has a pending referral to the EP lab with Dr. Enriquez. - An echocardiogram is also scheduled in one month. - She will follow up with Dr. Hall in si x months. - No changes were made to her current me dications. 3. Screening For Hypercoagulable State - A Factor V Leiden test will be ordered . - If the result is positive, the treatme nt will be a daily low-dose aspirin. - If the result is negative, no further action is required. 4. Dermatology Follow-Up - The patient completed a consultation w [facility] in early August, and all findings were normal. - She will follow up for an annual skin check in one year. Patient Instructions - Go to the lab for a blood draw to test only for Factor V Leiden. - The results will be posted to the [facility] portal. - If the test for Factor V Leiden is pos itive, you will need to start taking a low-dose baby aspirin every day. - If the test is negative, you do not ne ed to do anything further. - Keep your appointment with the EP lab on the . - Try to reduce stress as much as possib le, as this may have been a factor in your fainting spell. - RTO as scheduled in December for CPE with labs Consent Patient was informed and verbally consented to the use of an ambient scribe for clinic note documentation during this visit. Total time spent caring for the patient today was 40 minutes. This includes time spent before the visit reviewing the chart, time spent during the visit, and time spent after the visit on documentation, reviewing laboratory results, diagnostic imaging, medications, performing a medically necessary evaluation, counseling on diagnoses, care coordination, ordering appropriate tests, ordering appropriate medications, review of tests performed by other providers, reporting test results with the patient, communication with other healthcare providers. [facility] Medical History (Updated 09/22/25 @ 12:00 by Janelle Schaeffer [facility]) Anxiety and depression Eczema Parrish's disease (~02/2025) Incontinence PVC (premature ventricular contraction) Sinusitis SVT (supraventricular tachycardia) Surgical History H/O right knee surgery History of lumpectomy Family History Father HTN (hypertension) High cholesterol Maternal Grandmother Cardiovascular disease Clotting disorder Mother Thyroid disorder Mental health disorder Paternal Grandmother Colon cancer Maternal Grandfather Lymphoma Paternal Grandfather Pancreatic cancer Social History (Updated 03/11/25 @ 14:42 by Neva Garrido MA) Household Members: Spouse and Children Both parents involved: No Caregiver staying overnight: No Housing: House Are you a primary healthcare representative to a significant other at home: Yes Do you presently have visiting nurse or other home services: No 75 years or older and lives alone: No Alcohol intake: current Alcohol intake frequency: a few times a month Patient Tobacco Use Status: Never used Tobacco e-Cigarette/Vaping Use: Never Used Second Hand Smoke Exposure: No service: No Current occupational status: employed 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 Current occupational exposures/hazards: No Cognitive needs: No Hearing needs: No Vision needs: No Questionnaire Thrive Questionnaire Date Thrive assessed: 12/03/24 I am a: Patient What is your living situation today?: I have a steady place to live Within the past 12 months, did the food you bought not last and you didn't have the money to get more?: Never true Within the past 12 months, did you worry whether your food would run out before you got money to buy more?: Never true Do you have trouble paying for medicines?: No Do you have trouble getting transportation to medical appointments?: No Do you have trouble paying your heating and electricity bill?: No Do you have trouble taking care of your child, family member or friend?: No Do you have trouble with day-to-day activities such as bathing, preparing meals, shopping, managing finances, etc.?: No Are you currently unemployed and looking for a job?: No Are you interested in more education?: No Please select the resources that you would like help with: None Currently or been in a relationship where the following occur: No concerns reported THRIVE Score: 0 AUDIT C Alcohol Use Questionnaire (AUDIT-C) 1. How often do you have a drink containing alcohol?: 2-4 times a month 2. How many drinks containing alcohol do you have on a typical day when you are drinking?: 1 or 2 3. How often do you have six or more drinks on one occasion?: Never Total Score: 2 GAGE-7 AMB Questionnaire GAGE-7 Date GAGE - 7 assessed: 07/13/25 Source: Developed by Drs. Sridhar Gabriel, Ebony Cruz, Ceferino Lacey and colleagues, with an educational addi from [employer]. Physical exam (Primary Care) Vital Signs: Last Vital Signs Temp 99.1 F 09/22/25 11:49 Pulse 81 09/22/25 11:49 Resp 14 09/22/25 11:49 BP 122/84 09/22/25 11:49 Pulse Ox 98 09/22/25 11:49 Oxygen Delivery Method Room Air 09/22/25 11:49 BMI result Body Mass Index 24.5 Tobacco/Smoking Status: Tobacco use Status Tobacco use date assessed 07/13/25 09/22/25 11:48 Patient Tobacco Use Status Never used Tobacco 09/22/25 11:48 e-Cigarette/Vaping Use Never Used 09/22/25 11:48 Thrive Assessment: Date of Thrive Assessment Date Thrive assessed 12/03/24 09/22/25 11:48 Currently or been in a relationship where the following occur: No concerns reported Results Reviewed Results Reviewed: Coding Level of Care Code Est Pt Level 5 (79081) Add On Problem Visit Only Diagnoses Hospital discharge follow-up Z51.89 Family history of factor V Leiden mutation Z83.2 SVT (supraventricular tachycardia) I47.1 Syncope and collapse R55 Assessment & Plan Assessment & Plan (1) Hospital discharge follow-up: Code(s): Z51.89 - Encounter for other specified aftercare (2) Family history of factor V Leiden mutation: Code(s): Z83.2 - Family history of diseases of the blood and blood-forming organs and certain disorders involving the immune mechanism Category: Medical (3) SVT (supraventricular tachycardia): Comment: WITH RECURRENCE 09/2024 & 02/2025 [facility] ED, CARDIZEM GIVEN X1 09/2025 DR Usama Hall Cardio likely AVNRT, refer to Dr Dior at EP lab, check echo Code(s): I47.1 - Supraventricular tachycardia Category: Medical (4) Syncope and collapse: Onset Date: ~08/2025 Code(s): R55 - Syncope and collapse Category: Medical Plan . Orders: Orders 2 Factor V Leiden Today Z83.2 - Family history of diseases of the blood and blood-forming organs and certain disorders involving the immune mechanism
[2025-09-22 11:49] VITALS: BP 122/84; PULSE 81; RESP 14; TEMP 37.3; O2SAT 98; BMI 24.5
--- OUTSIDE RECORDS SUMMARY | 2025-09-22 17:53 | XMS_ITS | Clinical Summary ---
Author Organization [facility] Address [address] [place] [address] Phone Care Team Providers Care Forming Department End Finder Name Role Phone Janelle Schaeffer Primary Care Provider [phone] Social History Tobacco Use Types Packs/Day Years Used Date Smoking Tobacco: Never Assessed Comments Unknown Sex and Gender Information Value Date Recorded Sex Assigned at Not on file Legal Sex Female 9:57 AM EST Gender Identity Not on file Sexual Orientation Not on file Plan of Treatment Upcoming Encounters Date Type Department Care Team (Late st Contact Info) Description 09/27/2025 10:25 AM EST Office Visit [facility] [address] [facility] [address] [place] [address] Manoj Dior MD [address] [address] Health Maintenance Due Date Last Done Comments Breast Cancer Screening 1984 DTaP,Tdap,and Td Vaccines (1 - Tdap) 2003 Hepatitis B Vaccines (1 of 3 - 19+ 3-dose series) 2003 Cervical Cancer Screening: P ap Smear 2005 HPV Vaccines (1 - 3-dose SCD M series) 2011 Depression Screening 10/13/2024 COVID-19 Vaccine (1 - 2024-2 6 season) 2025 Influenza Vaccine (#1) 2025 HIV Screening 09/16/2025 Hepatitis C Screening 09/16/2025 Social Influencers of Health Screening 09/16/2025 RSV Immunization Adult Patie nts (1 - 1-dose 75+ series) 2059 HIB Vaccines Aged Out No longer eligi ble based on patient's age to complete this topic Hepatitis A Vaccines Aged Out No long er eligible based on patient's age to complete this topic IPV Vaccines Aged Out No longer eligi ble based on patient's age to complete this topic MMR Vaccines Aged Out No longer eligi ble based on patient's age to complete this topic Meningococcal ACWY Vaccine Aged Out N o longer eligible based on patient's age to complete this topic Meningococcal B Vaccine Aged Out No l onger eligible based on patient's age to complete this topic Pneumococcal Vaccine: Pediat rics (0 to 5 Years) and At-Risk Patients (6 to 49 Years) Aged Out No longer eligible b ased on patient's age to complete this topic RSV Immunization Patients Un ariana 20 months Aged Out No longer eligible b ased on patient's age to complete this topic Varicella Vaccines Aged Out No longer eligible based on patient's age to complete this topic Insurance [facility] Care Teams Forming Department End Finder Relationship Specialty Start Date End Date Janelle Schaeffer FNP [address] [place] [address] [place] [address] PCP - General Nurse Practitioner 09/16/25
== END 2025-09-22 12:10 | disposition home or self-care (01) ==
LOC: HO.HMCFM 11:35
PROVIDERS: PCP Nurse Practitioner Family; Visit Provider Nurse Practitioner Family
DX: Z51.89 Encounter for other specified aftercare (principal); I47.10 Supraventricular tachycardia, unspecified; R55 Syncope and collapse; Z83.2 Family history of diseases of the blood and blood-forming organs and certain disorders involving the immune mechanism

== ENCOUNTER 2025-09-26 14:41 | Outpatient (REF) | payer OTHER, SELFPAY ==
--- OUTSIDE RECORDS SUMMARY | 2025-09-21 23:59 | XMS_ITS | Continuity of Care Document ---
Author Organization [facility] Address [address] [place] [id number] Care Team Providers Care Wagon Person Name Role Phone Not on Staff, PCP Primary Care Physician Unavail able Encounter [facility] Date(s): 09/14/25 - 09/21/25 [facility] [address] [place] [id number] [place] Encounter Diagnosis SVT (supraventricular tachycardia)(Discharge Diagnosis) - 09/14/25 Syncope(Discharge Diagnosis) - 09/14/25 Elevated BP without diagnosis of hypertension(Discharge Diagnosis) - 09/14/25 Attending Physician: Tyree Hall MD Encounter Type: Office Visit Allergies, Adverse Reactions, Alerts Substance Criticality Severity Reaction Reaction Severity Status Latex Active Immunizations Given and Recorded Vaccine Date Status Refusal Reason rabies vaccine, human diploid cell 05/30/24 Given rabies vaccine, human diploid cell 05/23/24 Given rabies vaccine, human diploid cell 05/19/24 Given rabies vaccine, human diploid cell 05/16/24 Given Rabies Immune Globulin, Human 05/16/24 Given tetanus/diphtheria/pertussis, acel(Tdap) 12/04/21 Given tetanus/diphtheria/pertussis, acel(Tdap) 07/02/19 Given influenza virus vaccine, inactivated 07/16/19 Give n Medications Trena By Mouth, 0 Refills, Maintenance, 09/22/23 3:28:00 PM EST, Partial fill upon patient request if theprescription is for a schedule II opioid drug. Start Date: 09/22/23 Status: Ordered Medication Dispense Status: Completed Total Allowed Fills: 1 Fills Dispensed: 0 biotin 10 mg oral tablet 1 tablet = 10 mg, By Mouth, Daily, # 90 tablet, 11 Refills, Maintenance, 11/16/21 9:48:00 AM EST, Tablet, [facility]/pharmacy #[id number], Partial fill upon patient request if the prescription is for a schedule II opioid drug., 165, cm, 11/06/21 15:10:00 EST, Height, 72, kg, 11/06/21 15:10:00 EST, Dry Weight Start Date: 11/16/21 Status: Ordered Medication Dispense Status: Completed Quantity: 90.0 Unit: tablet Total Allowed Fills: 12 Fills Dispensed: 0 Indications: Biotinidase deficiency; metoprolol 25 mg oral tablet 25 mg, 1, tablet, By Mouth, Daily, PRN, take 1 or 2 tablets as needed for palpitations, # 90 tablet, Refills 3, Tot. Refills 3, Maintenance, palpitations, 01/23/23 12:02:00 PM EDT, Route to Pharmacy Electronically, [facility]/pharmacy #[id number], Partial fill upon patient request if the prescription is for a schedule II opioid drug., 165, cm, 01/23/23 11:34:00 EDT, Height, 75, kg, 03/14/22 20:23:00 EDT, Dry Weight Start Date: 01/23/23 Stop Date: 01/18/24 Status: Ordered Medication Dispense Status: Completed Quantity: 90.0 Unit: tablet Total Allowed Fills: 4 Fills Dispensed: 0 Indications: Supraventricular tachycardia; Ritalin 10 mg oral tablet 10 mg, 1, tablet, By Mouth, 2 times a day, Refills 0, Tot. Refills 0, Maintenance, 09/07/24 3:56:00PM EST, Partial fill upon patient request if the prescription is for a schedule II opioid drug. Start Date: 09/07/24 Status: Ordered Medication Dispense Status: Completed Total Allowed Fills: 1 Fills Dispensed: 0 sertraline 100 mg oral tablet 1 tablet = 100 mg, By Mouth, Daily, # 30 tablet, 0 Refills, Maintenance, 09/22/23 3:27:00 PM EST, Tablet, Partial fill upon patient request if the prescription is for a schedule II opioid drug. Start Date: 09/22/23 Status: Ordered Medication Dispense Status: Completed Quantity: 30.0 Unit: tablet Total Allowed Fills: 1 Fills Dispensed: 0 sertraline 25 mg oral tablet 1 tablet = 25 mg, By Mouth, Daily, 0 Refills, Maintenance, 09/14/25 11:08:00 AM EST, Partial fill upon patient request if the prescription is for a schedule II opioid drug. Start Date: 09/14/25 Status: Ordered Medication Dispense Status: Completed Total Allowed Fills: 1 Fills Dispensed: 0 Wellbutrin SR 150 mg/12 hours oral tablet, extended release 1 tablet = 150 mg, By Mouth, 2 times a day, 0 Refills, Maintenance, 09/14/25 11:08:00 AM EST, Partial fill upon patient request if the prescription is for a schedule II opioid drug. Start Date: 09/14/25 Status: Ordered Medication Dispense Status: Completed Total Allowed Fills: 1 Fills Dispensed: 0 Zyrtec Tablet 0 Refills, Maintenance, 07/05/24 4:00:00 PM EDT, Partial fill upon patient request if the prescription is for a schedule II opioid drug. Start Date: 07/05/24 Status: Ordered Medication Dispense Status: Completed Total Allowed Fills: 1 Fills Dispensed: 0 Problem List Condition Confirmation Course Effective Dates Status H ealth Status Informant Adult ADHD Confirmed Active Anxiety Confirmed Active History of depression 1 Confirmed Active History of kidney infection 2 Confirmed Active History of abnormal cervical Pap smear 3 Confirmed Active History of breast lump/mass excision 4 Confirmed Active Hyperthyroidism Confirmed Active Irritable bowel 5 Confirmed Active Nipple retraction Confirmed Active SVT (supraventricular tachycardia) 6 Confirmed Active 1Weaned off sertraline d/t wanting to conceive. Stopped completely 11/2018. Feels ok off medication. Managed by pcp. Therapy in past, but not in a long time. in bilateral kidneys, but no complications from this or issues since. 32 abnl paps in a row, but negative colpo/bx x 2 (in [id number]) and normal paps since. 4In 2016, benign left breast lumpectomy. (2.5cm x 2.5cm). Had f/u mammo's x ~1yr after. Has lumpy breast. 5Off and on issues of contipation, which then is diarrhea since childhood. 6Sx's started 2010. Was hospitalized 09/2018. Last episode 01/31/19 that lasted 10min. Gets episodes about 2-3x/year over the past 2-3years (was more frequent before). Typically last 30-45min in duration and resolve spontaneously. Has seen Cardio in [facility] in past and has f/u with new Cardio 02/18/19 through [facility] as f/u from September hospitalization. Has had holter monitor in past. Wason metropolol x 1mo on high dose after september hospitalization and in past too. Also, cardio took her off of ritalin that she was on thinking it could be a contributing factor. Diagnosis Diagnosis Type Effective Dates Health Status Clinical Service Informant SVT (supraventricular tachycardia) Discharge Diagnosis 09/14/25 Syncope Discharge Diagnosis 09/14/25 Elevated BP without diagnosis of hypertension Discharge Diagnosis 09/14/25 Vital Signs Most recent to oldest [Reference Range]: 1 Height 163 cm (09/14/25 11:08 AM) Weight 63.5 kg (09/14/25 11:08 AM) Oxygen Saturation [94-100 %] 100 % (09/14/25 11:08 AM) Pulse Rate [55-90 bpm] 64 bpm (09/14/25 11:08 AM) Body Mass Index [18.5-24.99 kg/m2] 23.9 kg/m2 (09/14/25 11:08 AM) Blood Pressure [90-138/55-84 mm Hg] 126/ 87mm Hg (09/14/25 11:08 AM) Mode of Delivery (Oxygen) Room air (09/14/25 11:08 AM) Blood pressure sites Arm, left (09/14/25 11:08 AM) Weight Obtained Via Bed scale (09/14/25 11:08 AM) Social History Social History Type Response Sexual Sexually involved in last 6 months: Yes. Gender identity: Identifies as female. Gender of partner(s): Male. Smoking Status Never (less than 100 in lifetime); Tobacco user in household: No entered on: 12/10/18 Sex Sex Representation Female (finding) Cardiology Outpatient Note * Rafael GARG, Tyree Mcallister: MODIFY, PERFORM Event Display: Cardiology Note Office Authored Date: [id number] Patient: ??GURPREET BUI ? Age:??40 Years?Sex:??Female?:??1985?LOC:??[facility]?? Indication for Consult 1YR FUV History of Present Illness/Interval History Ms. Lisbeth Caputo??returns for??continued cardiology follow-up. ?? This is my first visit with her. ??She previously??saw Dr. Mena??in our office.?? 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 Recommendation was for as needed??beta-juan josé??given that??she was nursing at that time.?? His last visit in our office was with Soraida Collins??SOCIAL MEDIA EXECUTIVE a year ago,??and she had reported 2 episodes of??SVT which??had terminated with metoprolol and Valsalva.? Over the past year, patient has had 2 ER visits for SVT.?? This was both in 09/2024 as well as 02/2025.?? Records from these ER visits were reviewed. ??Both these episodes occurred for refractory SVT which did not respond to metoprolol or vagal maneuvers.?? SVT was captured both times on twelve-leadECG.?in September, her episode terminated with vagal maneuver.?? At that time she was also notedto be hypokalemic, but she had not otherwise been ill. ??In February she was given diltiazem IV which terminated the SVT.?Patient reports that she had 1 additional episode which occurred in April and she was able to??self terminate at home with a combination of metoprolol, electrolyte??supplementation, and leg elevation as well as Valsalva maneuver. ?? The patient had a more recent ER visit earlier this week for syncope.?? She was working at the [employer] when she felt nauseous, flushed and dizzy.?? She eventually lost consciousness.?? She was brought again to [facility] ER where the presumption was that she had a vasovagal syncope event.?? Patient tells me today she did not have any palpitations and did not have her SVT in that setting.?? She has never had syncope before. ?? Patient is very active and exercises regularly without??limitation.?? 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 She expresses some concern to me today about if she were to have a recurrent event??while at home with her kids??or driving. ??Of note, her , edenilson Zhang SOCIAL MEDIA EXECUTIVE at [facility].? Of note, patient had been followed??for years for??palpitations and SVT and really did not have any episodes captured until??this past year. ??She had been seen at [facility] and[facility] as well. ??She tells me that at some point she was on a standing dose of metoprolol and did not see much improvement in terms of??the overall??burden/frequency of these??episodes. Review of Systems Pertinent positives as per the HPI.? Physical Exam Vitals & Measurements HR:??64??(Peripheral)?? BP:??126/87?? SpO2:??100%?? HT:??163??cm?? WT:??63.5??kg?? BMI:??23.9?? Weight lb/oz: 139 lb 16 oz General:??In no acute distress HEENT:??Sclerae anicteric, mucous membranes moist Cardiovascular: ??Regular rhythm, normal first and second heart sounds.?? No murmurs or gallops.?No JVP Respiratory:?Clear to auscultation all lung carlos GI: Normoactive bowel sounds, soft Extremities: Warm,??no??edema Neuro:??Nonfocal?? Psych: Alert and oriented with appropriate affect.?? Assessment/Plan 1.??SVT (supraventricular tachycardia) Patient with recurrent SVT. ??This has been??longstanding. ??Now we have captured it at least twicein the past calendar year by twelve-lead ECG. 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 She has on occasion been able to successfully??treated at home with??as needed metoprolol, vagal maneuvers, but this is not always the case and she has had at least??2 ER visits in the past year.?? In thepast she had taken standing metoprolol but did not notice much difference in terms of??burden of arrhythmia. Given that??she has continued??symptoms which she is not always able to??manage??with as needed medications, I think it would be appropriate to refer her up to an expander machine operator. ??They can discuss??further evaluation and treatment specifically ablation therapy.?Patient is open to this??andour discussion today, and does express concern about having recurrent arrhythmic events with family, or driving, or at work.?Of note, patient's works with [employer] so she would??prefer??referral to an expander machine operator??so I have taken the liberty of reaching out to Hattie Dior -??Referral to EP (Dr. Dior) ?Patient can continue using metoprolol, vagal maneuvers as needed??for??SVT in the interim ?? 2.??Syncope Patient with recent??syncopal??which did not occur in the setting of one of her??SVT episodes. ??By??description most likely vasovagal.?In light of her arrhythmia and syncope I will update an??echocardiogram.?? Also discussed conservative measures such as??hydration, electrolyte drinks, and using compression stockings when??on her feet ?Echocardiogram ??? Discussed hydration, sodium/electrolyte intake, and compression Ordered: Echo Complete, Routine, Reason: Syncope (R55), UEA As Needed, Once, *Est. 09/14/25, Single or Recurring Future Order ?? 3.??Elevated BP without diagnosis of hypertension Diastolic blood pressure is elevated today.?? May be related to whitecoat hypertension. ??Certainlywould not??add an antihypertensive in the setting of recent syncopal??event. ??Will continue to monitor at future visits ?? Orders: Follow up Appointment, 6 months, -echocardiogram, 09/14/25 11:35:00 EST The above note was prepared with the help of voice recognition software.?Please excuse any grammatical or spelling errors that may have occurred. ?? Tyree Hall MD [address] , [address] [place] [address] [address] [facility], [address], [place] [address] [phone] ([phone])?? Follow-Up Appointment Order Follow up Appointment - Ordered?-- 6 months, -echocardiogram, 09/14/25 11:35:00 EST Total Time Spent I personally spent a total of _45 minutes, including both jeet-dx-oqfu and wnk-qcpn-il-face time onthe date of the encounter, addressing the above diagnoses. Activities performed in this time include chart review, obtaining / reviewing history, performing amedically necessary evaluation, documentation and Counseling ?? Allergies Latex Home Medications Biotin(biotin 10 mg oral tablet), 10 mg= 1 tablet, By Mouth, Daily, 11 refills BuPROpion(Wellbutrin SR 150 mg/12 hours oral tablet, extended release), 150 mg= 1 tablet, By Mouth,2 times a day Cetirizine(Zyrtec Tablet) Fexofenadine(Trena), By Mouth Methylphenidate(Ritalin 10 mg oral tablet), 10 mg= 1 tablet, By Mouth, 2 times a day Metoprolol(metoprolol 25 mg oral tablet), 25 mg= 1 tablet, By Mouth, Daily, PRN, 3 refills Sertraline(sertraline 25 mg oral tablet), 25 mg= 1 tablet, By Mouth, Daily Sertraline(sertraline 100 mg oral tablet), 100 mg= 1 tablet, By Mouth, Daily Discharge Medications Unchanged Biotin (biotin 10 mg oral tablet)1 tab(s) Oral Daily. Refills: 11. BuPROpion (Wellbutrin SR 150 mg/12 hours oral tablet, extended release)1 tab(s) Oral twice a day. Cetirizine (Zyrtec Tablet) Fexofenadine (Trena)Oral. Methylphenidate (Ritalin 10 mg oral tablet)1 tab(s) Oral twice a day. Metoprolol (metoprolol 25 mg oral tablet)1 tab(s) Oral Daily as needed palpitations for 90 Days. take 1 or 2 tablets as needed for palpitations. Refills: 3. Sertraline (sertraline 100 mg oral tablet)1 tab(s) Oral Daily. Sertraline (sertraline 25 mg oral tablet)1 tab(s) Oral Daily. Lab Results Cardiology Labs Blood Count & Diff General Chemistry?? Cardiac?? WBC: 7.5 k/mm3 (09/12/25) Sodium: 138 mmol/L (09/12/25) Bilirubin, Total: 0.6 mg/dL (09/12/25) RBC: 4.32 m/mm3 (09/12/25) Potassium: 3.9 mmol/L (09/12/25) ?? Hgb: 13.2 Gm/dL (09/12/25) Chloride: 105 mmol/L (09/12/25) ?? Hct: 37.7 % (09/12/25) Bicarbonate Level: 24 mmol/L (09/12/25) ?? MCV: 87.3 femtoliters (09/12/25) Anion Gap: 9 mmol/L (09/12/25) ?? Platelet Count: 207 k/mm3 (09/12/25) Glucose Level:??107 mg/dL??High (09/12/25) ? BUN: 8 mg/dL (09/12/25) ? Creatinine-Blood: 0.59 mg/dL (09/12/25) ? Estimated GFR Creatinine: 116 ML/MIN/1.73 M2 (09/12/25) ? Calcium: 8.9 mg/dL (09/12/25) ? Magnesium: 2.1 mg/dL (09/29/24) ? Protein, Total: 6.6 Gm/dL (09/12/25) ? Albumin: 4.1 Gm/dL (09/12/25) ? Alkaline Phosphatase: 56 units/L (09/12/25) ? AST (SGOT): 19 units/L (09/12/25) ? ALT (SGPT): 15 units/L (09/12/25) ?? Diagnostic Impression ECG ECG 12-Lead ?? 12:01:33 Please click on pdf link to open report ?? Signed By: Phill Reynolds MD ?? ECG 12-Lead ?? 12:01:33 Ventricular Rate: 62 BPM Atrial Rate: 62 BPM P-R Interval: 126 ms QRS Duration: 76 ms Q-T Interval: 452 ms QTC Calculation(Bazett): 458 ms P [place]: 63 degrees R Sonora: 78 degrees T Sonora: 57 degrees Normal sinus rhythm Normal ECG When compared with ECG of 06-Mar-2025 10:36, Premature ventricular complexes are no longer Present Confirmed ?? Signed By: Phill Reynolds MD Problem List/Past Medical History Ongoing Adult ADHD Anxiety History of abnormal cervical Pap smear History of breast lump/mass excision History of depression History of kidney infection Hyperthyroidism Irritable bowel Nipple retraction SVT (supraventricular tachycardia) Procedure/Surgical History knee Surgery x 3 in right knee. left breast Lumpectomy Rossiter tooth Patient Instructions I will refer you to Dr. Dior (EP) for evaluation of your SVT ?? We will refer you for an echocardiogram ?? 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 Exercise Self assessment:Good condition Exercise type:Running, HIIT Home/Environment Living situation:Home/Independent Lives with:Children, Spouse, cat- changes litterbox Nutrition/Health Diet: (Don't list allergies here)Regular Caffeine intake amount:8 ounces a day Sexual Sexually involved in last 6 months:Yes Gender identity:Identifies as female Gender of partner(s):Male Substance Abuse Use:Never Substance abuse in household:No Tobacco Use:Never (less than 100 in lifetime) Tobacco user in household:No Family History Father: Heart attack; High cholesterol....; Hypercholesterolemia; Stroke; TIA Mother: Anxiety; Bronchiectasis; Depression; Eczema; Osteoporosis; Thyroid disease Pat. Grandfather: Cancer of pancreas Mat. Grandfather: Cancer Mat. Grandmother: Angina Pat. Grandmother: Cancer of colon Note * Myles Mooreha: PERFORM Event Display: Patient Education/Instruction Authored Date: [id number] Ambulatory Adult Visit Summary [facility] [address] [place] [address] Name: GURPREET CAPUTO : 1985?? Visit: 09/14/2025 11:04?? Ambulatory Visit Instructions ?? Your Care Team Primary Care Provider Not on Staff, PCP?? This Visit Provider Tyree Hall MD Your Diagnosis SVT (supraventricular tachycardia) Syncope Vitals Signs Pulse Rate: 64 bpm Height: 163 cm Systolic Blood Pressure: 126 mm Hg Weight: 63.5 kg Diastolic Blood Pressure:??87 mm Hg??High Body Mass Index: 23.9 kg/m2 Oxygen Saturation: 100 % Body surface area: 1.7 What to do next Instructions From Your Provider I will refer you to Dr. Dior (EP) for evaluation of your SVT ?? We will refer you for an echocardiogram ?? Please stay well hydrated, use electrolyte drinks and compression stockings Follow-Up Appointments Follow up Appointment - Ordered?-- 6 months, -echocardiogram, 09/14/25 11:35:00 EST Future Orders Echo Complete, Routine, Reason: Syncope (R55), UEA As Needed, Once, *Est. 09/14/25, Single or Recurring Future Order Medications The list below reflects the information in our records and provided by you today along with any changes made during this visit. Please continue your medications until treatment is completed or stopped by your provider. If this is different from the information you have or there are other questions,please contact the prescribing provider. What How Much When Why Instructions Unchanged Biotin (biotin 10 mg oral tablet) 1 tab(s) Oral Daily Biotinidase deficiency Ordering Physician: Lisa Lara MD Unchanged BuPROpion (Wellbutrin SR 150 mg/ 12 hours oral tablet, extended release) 1 tab(s) Oral Twice a day Unchanged Cetirizine (Zyrtec Tablet) Unchanged Fexofenadine (Trena) Oral Unchanged Methylphenidate (Ritalin 10 mg oral tablet) 1 tab(s) Oral Twice a day Unchanged Metoprolol (metoprolol 25 mg oral tablet) 1 tab(s) Oral Daily as needed for palpitations SVT (supraventricular tachycardia) Duration: 90 Days Special Instructions: take 1 or 2 tablets as needed for palpitations Ordering Physician: Ricki Mena MD ?? Unchanged Sertraline (sertraline 100 mg oral tablet) 1 tab(s) Oral Daily Unchanged Sertraline (sertraline 25 mg oral tablet) 1 tab(s) Oral Daily Medications and Immunizations Administered Medications Given During Visit No medications given during this visit.?? Allergies (NKA means No Known Allergies) Latex Common Emergency Awareness Tips IS IT A STROKE? Act FAST and Check for these signs: FACE Does the face look uneven? ARM Does one arm drift down? SPEECH Does their speech sound strange? TIME Call at any sign of stroke ?? Heart Attack Signs Chest discomfort: Most heart attacks involve discomfort in the center of the chest and lasts more than a few minutes, or goes away and comes back. It can feel like uncomfortable pressure, squeezing, fullness or pain. Discomfort in upper body: Symptoms can include pain or discomfort in one or both arms, back, neck, jaw or stomach. Shortness of breath: With or without discomfort. Other signs: Breaking out in a cold sweat, nausea, or lightheaded. Remember, MINUTES DO MATTER. If you experience any of these heart attack warning signs, call to get immediate medical attention! ?? Smoking can increase your chances of developing chronic health problems and can cause harmful effects to other family members in your house. If you smoke, you are strongly encouraged to quit. Please call [employer] [facility] at [phone] or [phone] ticketbroker ([phone]) or log in to [email or web address] for referrals to smoking cessation programs. ?? The National Suicide Prevention Hotline is available 05/05 if you or someone you know needs to find a reason to keep living. By calling 3-620-824-[employer] (2894) you'll be connected to a skilled, trained counselor at a crisis center in your area. [facility] Portal You can view and manage your care through the patient portal or by using a health care rohith of your choosing. [email or web address] is a website that allows you to securely view your medical information including your hospital discharge summary, office visit summaries, medications and follow-up visits. You can also request appointments, renew medications, and request access to your medical information using a health care rohith of your choosing, or just ask a question. You can enroll at [email or web address] or register during your next office visit. [facility], in keeping with [facility] guidance, no longer requires face masks for staff, patientsor visitors in most situations. Similiar to time spent indoors at other locations, there is the chance that you were exposed to repiratory viruses during your time with us (such as flu or COVID-19). If you develop symptoms concerning for a viral respiratory infection, please seek testing (and treatment if indicated) from your medical provider or home test kit. ?? Disclaimer: The information provided is of a general nature and is intended to be used in conjunction with the recommendations and advice of your health care practitioner. Every effort has been made to ensure that the information provided is accurate and complete at the time it is provided to you however, as your needs change, or, as new information becomes available, different or additional instructions may be required. ?? If you have questions, please consult with your primary care provider or pharmacist, as appropriate. This information is not intended to serve as substitution for assessment and evaluation by a qualified health care provider. If you do not have a primary care provider, you may find a [facility] provider by calling [facility] Link at [phone]. Patient Care team information Care Team Personnel Name: Not on Staff, PCP Position: S Physician (General Medicine) Member Role: PCP Care Team Related Persons Name: LEE LANE Name: RYAN DONALD Name: VIKRAM DONALD Name: DARLEEN DONALD Insurance Providers Guarantor name: [facility]URPREET [facility] Health Plan Information #: 1 Payer: [facility] POS Payer Identifier: NA Member Number: [id number] Group Number: [id number] Subscriber Identifier: [id number] Relationship to Subscriber: self Coverage Type: Commercial Managed Care - HMO Coverage Verification Date: NA Telecom: NA Address: NA
--- OUTSIDE RECORDS SUMMARY | 2025-09-26 21:11 | XMS_ITS | Clinical Summary ---
Author Organization [facility] Address [address] [place] [address] Care Team Providers Care Consulting Actuary Name Role Phone Yulia Mix MD Primary Care Provider [phone] Allergies Active Allergy Reactions Criticality Noted Date [...] complete this topic Procedures * Due to [place] [employer] law, this organization might not be sharing negative HIV tests. Procedure Name Priority Date/Time Associated Diagnosis Comments PAP SMEAR Routine 10/21/2001 1:48 PM EST from Last 3 Months or Most Recently Relevant to Health Maintenance Results * Due to [place] [employer] law, this organization might not be sharing negative HIV tests. * PAP SMEAR (10/21/2001 1:48 PM EST) PAP SOURCE [facility] (CLIA# [id number]) Comment:None given PAP NUMBER OF SLIDES RECEIVED 1 [facility] (CLIA# [id number]) LMP [facility] (CLIA# [id number]) Comment:10/09/01 PAP CLINICAL HISTORY [facility] (CLIA# [id number]) Comment:Hormone therapy LQPAPENDO [facility] (CLIA# [id number]) Comment:Endocervical cells a re absent. PAP SPECIMEN ADEQUACY [facility] (CLIA# [id number]) Comment:Satisfactory specime n for Cytologic evaluation. INTERPRETATION/RE SULT - PAP [facility] (CLIA# [id number]) Comment: WITHIN NORMAL LIMITS (Please note comment under endocervical component) PAP PATHOLOGY GROUP [facility] (CLIA# [id number]) Comment: [address] [address] Screening performed at [facility], [address] [place] [id number] 10/21/2001 1:48 PM EST 10/21/2001 1:48 PM EST Blessing Infante MD PATHOLOGY Final Result [facility] (CLIA# [id number]) [address] [place] [phone] from Last 3 Months or Most Recently Relevant to Health Maintenance Insurance [facility] DIRECT CARE (HMO) Care Teams Consulting Actuary Relationship Specialty Start Date End Date Yulia Mix MD PCP - General Family Medicine 03/17/17
--- OUTSIDE RECORDS SUMMARY | 2025-09-26 21:11 | XMS_ITS | Patient Health Record ---
Author Organization [facility] Address [address] [place] [address] Care Team Providers Care Linotypist Name Role Phone SULY MULLER MD Primary Care Provider UnavailDAVID Chu Unavailable [phone] MARY MULLER MD Unavailable Unavailable Allergies Allergen (clinical drug ingredient) Drug/Non Drug Allergy documented on EMR Reaction Allergy Type Onset Date Status amoxicillin Amoxicillin rash Drug Allergy Act bessy bupropion buPROPion rash Drug Allergy Active Reason For Referral No Information Medications Medication SIG (Take, Route, Frequency, Duration) Notes Start Date End Date Status Pataday 0.2 % Solution 1 gtt in each aff ected eye once a day/prn Active Montelukast Sodium 10 MG Tablet 1 tab(s) orally once a day; Duration: 30 day(s) Active Sertraline HCl 50 MG Tablet 1 tab(s) ora lly once a day; Duration: 30 day(s) Active Norethindrone 0.35 MG Tablet 1 tab(s) or ally once a day; Duration: 28 day(s) Active ZyrTEC Allergy 10 MG Tablet 1 tab(s) ora lly once a day Active Flonase Allergy Relief 50 MCG/ACT Suspension 1 spray(s) in each nostril once a day; Duration: 30 day(s) Active Social History Tobacco Use: Social History Observation Description Date Details (start date - stop date) Never Smoker NA - NA Social History Tobacco Use: Social Info Question Answer Notes Smoking Are you a: never smoker Additional Details Category Social Info Options Details General 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[employer], 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, 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 alcohol use: yes 2-3 per week drug use: no marijuana in the past Coffee/Tea/Soda: yes 1 coffee daily Marital Status Problems Problem Type SNOMED Code ICD Code Onset Dates Problem Status W/U Status Risk Notes Problem Hyperthyroidism (80296505) Hyperthyroidism (E05.90) Active confirmed Plan Of Treatment No Information Insurance Providers Payer Name Payer Address Payer Phone Subscriber Number Group Number Insured Name Patient Relationship to Insured Coverage Start Date Coverage End Date [facility] [address] [place] [address] [id number] GURPREET MARTI Self - patient is the insured Medical (General) History Medical History History ICD Code allergy high cholesterol (resolved) depression hyperthyroidism Surgical History Surgery Date(Month/Year) pilonidal cyst 2002 [place] [facility] 2004 Right Knee Surgery 12/2014 Right Knee Surgery 04/2009 Right Knee Surgery 11/2008 Lumpectomy 04/2017
--- OUTSIDE RECORDS SUMMARY | 2025-09-26 21:12 | XMS_ITS | Patient Health Record ---
Author Organization [facility] Address [address] [place] [address] Care Team Providers Care Concrete Floor Installer Name Role Phone SULY MULLER Unavailable [phone] Allergies Allergen (clinical drug ingredient) Drug/Non Drug Allergy documented on EMR Reaction Allergy Type Onset Date Status amoxicillin Amoxicillin rash Drug Allergy Act bessy Wellbutrin rash Drug Allergy Active Reason For Referral No Information Medications Medication SIG (Take, Route, Frequency, Duration) Notes Start Date End Date Status Atorvastatin Calcium 20 MG Tablet 1 tablet Orally Once a day; Duration: 90 days 03/11/2023 Active Biotin Active hydrOXYzine Pamoate 25 MG Capsule TAKE 1 CAPSULE BY MOUTH EVERY DAY AT BEDTIME NEEDED; Duration: 90 Active ZyrTEC Allergy Activ e Sertraline HCl 100 MG Tablet TAKE 1 TABLET BY MOUTH EVERY DAY; Duration: 90 Active Problems Problem Type SNOMED Code ICD Code Onset Dates Problem Status W/U Status Risk Notes Problem Hypothyroidism (28407287) Hypothyroidism, unspecified (E03.9) Active confirmed Problem Thyrotoxicosis (72511550) Thyrotoxicosis, unspecified without thyrotoxic crisis or storm (E05.90) Active confirmed Problem Insomnia (210346861) Insomnia, unspecified (G47.00) Active confirmed Problem Pain of left knee region (finding) (099951562626233) Left knee pain, unspecified chronicity (M25.562) Active confirmed Problem Acquired hypothyroidism (274709402) Acquired hypothyroidism (E03.9) Active confirmed Problem Anxiety (54374204) Anxiety (F41.9) Active confi rmed Problem Insomnia (241820041) Insomnia, unspecified type (G47.00) Active confirmed Problem Seasonal allergy (803586027) Seasonal allergies (J30.2) Active confirmed Problem Vitamin D deficiency (29492526) Vitamin D deficiency (E55.9) Active confirmed Problem Supraventricular tachycardia (6272281) SVT (supraventricular tachycardia) (I47.1) Active confirmed Plan [...] Insured Coverage Start Date Coverage End Date [employer] [id number] [id number] GURPREET MARTI Self - patient is the insured Medical (General) History Medical History History ICD Code Hypothyroidism, unspecified type E03.9 SVT (supraventricular tachycardia) I47.1 Seasonal allergies J30.2 Anxiety F41.9 Surgical History Surgery Date(Month/Year) right knee left breast lumpectomy pilonidal cyst
--- OUTSIDE RECORDS SUMMARY | 2025-09-26 21:12 | XMS_ITS | Clinical Summary ---
Author Organization [facility] Address [address] [place] [address] Care Team Providers Care Concrete Bucket Hooker Name Role Phone Rosalio Tesfaye MD Primary Care Provider [phone] Lizbeth Cancino MD Unavailable [phone] Agnes Engle MD Unavailable Unavailable Source Comments [...] change in or delivery plan. Delivery at [facility] as previously planned. No need for [...] to complete this topic Insurance [facility] PPO [facility] PPO Care Teams Concrete Bucket Hooker Relationship Specialty Start Date End Date Rosalio Tesfaye MD [address] [place] [address] PCP - General Maternal and Medicine 10/15/21 Lizbeth Cancino MD [address] [place] [id number] Obstetrics and Gynecology 10/09/21 Agnes Engle MD [address] [place] [address] Consulting Physician Cardiology 10/15/21
--- OUTSIDE RECORDS SUMMARY | 2025-09-26 21:12 | XMS_ITS | Clinical Summary ---
Author Organization [facility] Address [address] [place] [address] Phone Care Team Providers Care Auto Glass Technician Name Role Phone Janelle Schaeffer Primary Care Provider [phone] Active Problems Problem Noted Date Diagnosed Date SVT (supraventricular tachycardia) 09/26/2025 Medical History Medical History Date Comments Adhd Hyperactive Social History Tobacco Use Types Packs/Day Years [...] Description 09/27/2025 10:25 AM EST Office Visit [facility] [address] [facility] [address] [place] [id number] Manoj Dior MD [address] [place] [address] Health Maintenance Due Date Last Done Comments Breast Cancer Screening 1984 DTaP,Tdap,and Td Vaccines (1 - Tdap) 2003 Hepatitis B Vaccines (1 of 3 - 19+ 3-dose series) 2003 Cervical Cancer Screening: P ap Smear 2005 HPV Vaccines (1 - 3-dose SCD M series) 2011 Depression Screening 10/13/2024 COVID-19 Vaccine ( - 2024-2 6 season) 2025 Influenza Vaccine [...] patient's age to complete this topic Insurance [facility] Care Teams Auto Glass Technician Relationship Specialty Start Date End Date Janelle Schaeffer FNP [address] [place] [address] [place] [id number] PCP - General Nurse Practitioner 09/16/25
== END 2025-09-26 14:42 | disposition home or self-care (01) ==
LOC: HO.WFDLDS 14:41
PROVIDERS: Visit Provider Nurse Practitioner Family
DX: Z83.2 Family history of diseases of the blood and blood-forming organs and certain disorders involving the immune mechanism (principal)
CPT/HCPCS: 36415